=== PATIENT | female | born 1950 | race African-American/Black ===

== ENCOUNTER 2018-08-17 01:04 | Inpatient (IN) ==
--- NOTE | 2018-08-17 04:43 | CT ---
EXAM DATE: 08/17/2018 4:10 AM EST AGE/SEX: 68 years / Female INDICATIONS: Fell out of bed. CLINICAL DATA: This is the patient's initial encounter. Patient reports that signs and symptoms have been present for 1 day and indicates a pain score of 0/10. MEDICAL/SURGICAL HISTORY: Dementia. Diabetes mellitus type II. Hypertension. PVD None. RADIATION DOSE: 13.14 CTDI (mGy) COMPARISON: No prior exams available for comparison. TECHNIQUE: Contiguous axial images were obtained using helical multirow detector technique. The vol umetric data was post-processed with multiplanar reconstruction in oblique axial, sagittal, and coron al planes. Using automated exposure control and adjustment of the mA and/or kV according to patient s ize, radiation dose was kept as low as reasonably achievable to obtain optimal diagnostic quality tad ges. DICOM format image data is available electronically for review and comparison. FINDINGS: Vertebrae: Normal vertebral body height. Alignment: Normal. No subluxation. Calcified carotid artery atherosclerotic plaque. C2-3: Mild central bulge. Central canal is patent as are the neural foramina.. C3-4: Moderate broad-based disc bulge with abutment of the cord. Bony uncovertebral hypertrophy with mild encroachment upon the neural foramina bilaterally.. C4-5: Moderate broad-based disc bulge with abutment of the cord. Bony uncovertebral hypertrophy with mild encroachment upon the neural foramina bilaterally. C5-6: Moderate broad-based disc bulge with abutment of the cord. Bony uncovertebral hypertrophy with mild encroachment upon the neural foramina bilaterally... C6-7: Moderate broad-based disc bulge with abutment of the cord. Bony uncovertebral hypertrophy with mild encroachment upon the neural foramina bilaterally... C7-T1: The bony spinal canal is normal in size. No evidence of disc bulge or herniation. The neura l foramina are bilaterally patent. CONCLUSION: 1. No fracture. 2. Diffuse degenerative changes. Electronically signed by: Antonio Harvey MD 08/17/2018 4:41 AM EST
--- NOTE | 2018-08-17 04:46 | CT ---
EXAM DATE: 08/17/2018 4:08 AM EST AGE/SEX: 68 years / Female INDICATIONS: Fell out of bed. Right forehead contusion. CLINICAL DATA: This is the patient's initial encounter. Patient reports that signs and symptoms have been present for 2 days and indicates a pain score of 0/10. MEDICAL/SURGICAL HISTORY: Dementia. Diabetes mellitus type II. Hypertension. PVD None. RADIATION DOSE: 32.44 CTDI (mGy) COMPARISON: No prior exams available for comparison. TECHNIQUE: CT of the head without contrast. Using automated exposure control and adjustment of the mA and/or kV according to patient size, radiation dose was kept as low as reasonably achievable to ob tain optimal diagnostic quality images. DICOM format image data is available electronically for revi ew and comparison. FINDINGS: Cerebrum: Serpiginous areas of high attenuation associated with the superficial cortex of both front al and parietal lobes particularly near the vertex. This may involve the subarachnoid space is well. Periventricular low attenuation change involving both cerebral hemispheres. The ventricles are normal for age. No evidence of midline shift, mass lesion, or acute infarction. No extraaxial fluid suni ections are seen. Posterior Fossa: The cerebellum and brainstem are intact. The 4th ventricle is midline. The cerebe llopontine angle is unremarkable. Extracranial: The visualized portion of the orbits is intact. Skull: A right supraorbital soft tissue hematoma. The calvaria is intact. No evidence of skull frac ture. CONCLUSION: 1. Right supraorbital soft tissue hematoma. 2. Areas of high attenuation which could relate to small volume subarachnoid hemorrhage and possibly superficial hemorrhagic contusions as detailed above. Consider short-term follow-up CT of the brain to document stability. 3. Chronic small vessel ischemic change. . Electronically signed by: Antonio Harvey MD 08/17/2018 4:45 AM EST
[2018-08-17 05:02] LABS: Bacteria,Urine Many /hpf; Bilirubin,Urine Negative (Negative); Clarity,Urine Cloudy (Clear); Color,Urine Yellow (Yellw/Straw); Glucose,Urine (UA) 500 or Greater mg/dL (Negative); Hyaline Casts,Urine 2 /lpf (0-3); Leukocyte Esterase,Urine Large (Negative); Mucus,Urine Few /lpf (Occasional); Nitrite,Urine Positive (Negative); Specific Gravity,Urine 1.007 (1.002-1.035)
[2018-08-17 05:05] LABS: Baso # (Auto) 0.1 th/mm3 (0.0-0.2); Eos # (Auto) 0.4 th/mm3 (0.0-0.4); Hematocrit 34.3 % (35.0-46.0); Hemoglobin 11.5 gm/dL (11.6-15.3); Lymph # (Auto) 1.5 th/mm3 (1.0-4.8); Lymph % (Auto) 25.2 % (9.0-44.0); Mean Corpuscular HGB Conc 33.5 % (32.0-36.0); Mean Corpuscular Hemoglobin 30.7 pg (27.0-34.0); Mean Corpuscular Volume 91.9 fL (80.0-100.0); Mean Platelet Volume 9.6 fL (7.0-11.0); Mono # (Auto) 0.6 th/mm3 (0.0-0.9); Mono % (Auto) 10.7 % (0.0-8.0); Neut # (Auto) 3.4 th/mm3 (1.8-7.7); Neut % (Auto) 57.1 % (16.0-70.0); Platelet Count 242 th/mm3 (150-450); Red Blood Count 3.73 mil/mm3 (4.00-5.30); Red Cell Distribution Width 14.7 % (11.6-17.2); White Blood Count 5.9 th/mm3 (4.0-11.0)
--- NOTE | 2018-08-17 05:05 | ED ---
HPI General Chief complaint: Head Injury Stated complaint: Medical Time Seen by Provider: 08/17/18 04:22 Source: patient, EMS and old records reviewed Mode of arrival: EMS Limitations: altered mental status History of Present Illness HPI Narrative: 68-year-old black female presents to the emergency department from [facility]. Patient allegedly had fallen out of bed striking her right side of the face. She developed a hematoma. She was sent to the ER for evaluation. She was found on the floor. The patient is a poor historian. She suffers from diabetes, hyperlipidemia, seizure disorder, hypertension, CVA, peripheral vascular disease and dementia. Patient currently takes Plavix. Patient is unable to render a meaningful history. History through review of the medical record and discussion with the nurses. Related Data Home Medications Medication Instructions Recorded Confirmed Novolin N NPH U-100 Insulin 08/17/18 amlodipine 10 mg PO DAILY 08/17/18 08/17/18 aspirin 325 mg PO DAILY 08/17/18 08/17/18 atorvastatin 20 mg PO DAILY 08/17/18 08/17/18 carvedilol 25 mg PO BID 08/17/18 08/17/18 clopidogrel [Plavix] 75 mg PO DAILY 08/17/18 08/17/18 duloxetine 60 mg PO DAILY 08/17/18 08/17/18 levetiracetam 1,000 mg PO BID 08/17/18 08/17/18 Allergies Allergy/AdvReac Type Severity Reaction Status Date / Time insulin glargine Allergy Abdominal Verified 08/17/18 01:19 [From Lantus U-100 Insulin] Pain Penicillins Allergy Anaphylaxis Verified 08/17/18 01:19 Review of Systems ROS Unobtainable ROS Unobtainable: unobtainable due to mental condition PMFSH Medical History Medical History Dementia (Acute) Epilepsy (Acute) HTN (hypertension) (Acute) History of infection due to ESBL Escherichia coli (Acute ~08/17/18) Hyperlipidemia (Acute) PVD (peripheral vascular disease) (Acute) Surgical history unknown (Acute) Type 2 diabetes mellitus (Acute) Social History Social History Substance History: No History of Abuse Second Hand Smoke Exposure: No Smoking Status: Former smoker How Often Do You Have a Drink Containing Alcohol: Never Recent Travel in [facility] [[email or web address] within the Last 8 Weeks: No Recent Out of Country Travel within the Last 8 Weeks: No Immunization History Tetanus Immunization: >5 Years Exam Narrative Exam Narrative: GENERAL: Well-developed, well-nourished in no apparent distress. Nontoxic appearing. Patient is pleasantly confused. Patient has an indwelling Schilling. Urine is cloudy HEAD: Patient has a large right supraorbital hematoma EYES: Pupils equal round and reactive. Extraocular motions intact. No scleral icterus. No injection or drainage. ENT: Nose clear. Throat without erythema, tonsillar hypertrophy or exudate. Uvula midline. Airway patent. NECK: Trachea midline. Supple, nontender, moves head freely. No central bony tenderness or spasm. CARDIOVASCULAR: Regular rate and rhythm without murmurs, gallops, or rubs. RESPIRATORY: Clear to auscultation. Breath sounds equal bilaterally. No wheezes , rales, or rhonchi. GASTROINTESTINAL: Abdomen soft, non-tender, nondistended. No hepato-splenomegaly , or palpable masses. No guarding. EXTREMITIES: No clubbing, cyanosis, +1 pedal edema in the right lower leg. She has a wound on the right knee. This is dressed. She has a left [id number] amputation. Upper extremities are unremarkable. BACK: Nontender without deformity. No flank tenderness. NEUROLOGICAL: Awake, alert and oriented x 1 .Cranial nerves grossly intact. Unable to truly assess motor with patient's history of CVA, PVD, and dementia. She has a left [id number] amputation. She seems to move her arms in a coordinated fashion. Course Initial Documented Vital Signs Temperature 98.5 F 08/17/18 01:14 Pulse Rate 72 08/17/18 01:14 Respiratory Rate 16 08/17/18 01:14 Blood Pressure 153/73 H 08/17/18 01:14 Pulse Oximetry 99 08/17/18 01:14 Last Documented Vital Signs Temperature 98.3 F 08/21/18 20:00 Pulse Rate 71 08/21/18 20:00 Respiratory Rate 18 08/21/18 20:00 Blood Pressure 122/65 08/21/18 20:00 Pulse Oximetry 98 08/21/18 20:00 Medical Decision Making LULA Attestation LULA supervised visit: Yes Attestation: 68-year-old female was sent to the ER from the [facility] after she was found on the floor for an unwitnessed fall. Patient has history of dementia and is a DNR. She was seen by my PA and I am supervising him. Head CT showed a small possible bleed as per the radiologist. PA discussed the case with the neurosurgeon who recommended admission. Patient will be admitted to her primary care service. Patient is quite confused which could be from her dementia although I do not know her baseline status. She has a right periorbital hematoma/ecchymosis. Patient is hemodynamically stable otherwise. MDM Narrative Medical decision making narrative: This is a 68-year-old black female who had [facility]. She has a long-standing history of chronic medical problems as well as dementia. She is on Plavix for her peripheral vascular disease. Patient will undergo CT scan of the head, neck, routine laboratory testing. CT scan of the cervical spine is negative for trauma. CT scan of the brain reveals a soft tissue swelling to the right supraorbital area along with a possible small subarachnoid and contusion to the vertex of the head. Close interval follow-up CT is recommended. I have discussed the case with Dr. Herrera who is aware of the patient. He agrees with admitting to medicine service having repeat CT scanning. Hold Plavix. I have spoken with Ila Cooper nurse practitioner who has agreed to admit the patient to [facility] telemetry observation with repeat CT scanning in the next 6- 12 hours. Patient's urine is grossly contaminated and has positive nitrates. She is given Rocephin 1 g IV. Medical Screen Exam Complete: Yes Emergency Medical Condition: Yes Differential Diagnosis Differential Diagnosis: MDM: High Differential diagnoses: Fracture, sprain, strain, dislocation, contusion, neurovascular injury Lab Data Result diagrams: 08/19/18 04:38 08/18/18 08:11 Lab Results 08/17/18 08/17/18 08/17/18 Range/Units 03:40 03:40 03:40 WBC 5.9 (4.0-11.0) th/mm3 RBC 3.73 L (4.00-5.30) mil/mm3 Hgb 11.5 L (11.6-15.3) gm/dL Hct 34.3 L (35.0-46.0) % MCV 91.9 (80.0-100.0) fL MCH 30.7 (27.0-34.0) pg MCHC 33.5 (32.0-36.0) % RDW 14.7 (11.6-17.2) % Plt Count 242 (150-450) th/mm3 MPV 9.6 (7.0-11.0) fL Neut % (Auto) 57.1 (16.0-70.0) % Lymph % (Auto) 25.2 (9.0-44.0) % [place] % (Auto) 10.7 H (0.0-8.0) % Eos % (Auto) 6.0 H (0.0-4.0) % Baso % (Auto) 1.0 (0.0-2.0) % Neut # (Auto) 3.4 (1.8-7.7) th/mm3 Lymph # (Auto) 1.5 (1.0-4.8) th/mm3 [place] # (Auto) 0.6 (0.0-0.9) th/mm3 Eos # (Auto) 0.4 (0.0-0.4) th/mm3 Baso # (Auto) 0.1 (0.0-0.2) th/mm3 WBC Differential . Differential Comment Auto diff final PT (9.8-11.6) sec INR Ratio APTT (23.4-31.7) sec Sodium 135 L (136-145) meq/L Potassium 5.6 H (3.5-5.1) meq/L Chloride 102 (98-107) meq/L Carbon Dioxide 26.8 (21.0-32.0) meq/L Anion Gap 6 (5-15) meq/L BUN 21 H (7-18) mg/dL Creatinine 1.16 H (0.50-1.00) mg/dL Estimated GFR 56 L (>89) mL/min POC Glucose (68-110) mg/dl Random Glucose 297 H (74-106) mg/dL Calcium 8.9 (8.5-10.1) mg/dL Troponin I Less than 0.02 L (0.02-0.05) ng/mL Urine Color Yellow (Yellw/Straw) Urine Clarity Cloudy H (Clear) Urine pH 6.0 (5.0-8.5) Ur Specific [place] 1.007 (1.002-1.035) Urine Protein 30 H (Neg-Trace) mg/dL Urine Glucose (UA) 500 or greater (Negative) mg/dL Urine Ketones Negative (Negative) mg/dL Urine Occult Blood Negative (Negative) Urine Nitrate Positive H (Negative) Urine Bilirubin Negative (Negative) Urine Urobilinogen Less than 2 (Less than 2) mg/dL Ur Leukocyte Esterase Large H (Negative) Urine RBC 1 (0-3) /hpf Urine WBC (0-5) /hpf Urine WBC Clumps Many H (None) Urine Bacteria Many H (None) /hpf Hyaline Casts 2 (0-3) /lpf Urine Mucus Few H (Occasional) /lpf Urine Yeast Rare H (None) /hpf Micro UA Comment Cath-culture ind Ur Microscopic Review Not Reportable Urine Culture Comments Cath-cult indicated 08/17/18 08/17/18 08/17/18 Range/Units 05:40 08:18 12:19 WBC (4.0-11.0) th/mm3 RBC (4.00-5.30) mil/mm3 Hgb (11.6-15.3) gm/dL Hct (35.0-46.0) % MCV (80.0-100.0) fL MCH (27.0-34.0) pg MCHC (32.0-36.0) % RDW (11.6-17.2) % Plt Count (150-450) th/mm3 MPV (7.0-11.0) fL Neut % (Auto) (16.0-70.0) % Lymph % (Auto) (9.0-44.0) % [place] % (Auto) (0.0-8.0) % Eos % (Auto) (0.0-4.0) % Baso % (Auto) (0.0-2.0) % Neut # (Auto) (1.8-7.7) th/mm3 Lymph # (Auto) (1.0-4.8) th/mm3 [place] # (Auto) (0.0-0.9) th/mm3 Eos # (Auto) (0.0-0.4) th/mm3 Baso # (Auto) (0.0-0.2) th/mm3 WBC Differential Differential Comment PT 10.4 (9.8-11.6) sec INR 1.0 Ratio APTT 20.8 L (23.4-31.7) sec Sodium (136-145) meq/L Potassium (3.5-5.1) meq/L Chloride (98-107) meq/L Carbon Dioxide (21.0-32.0) meq/L Anion Gap (5-15) meq/L BUN (7-18) mg/dL Creatinine (0.50-1.00) mg/dL Estimated GFR (>89) mL/min POC Glucose 261 H 380 H (68-110) mg/dl Random Glucose (74-106) mg/dL Calcium (8.5-10.1) mg/dL Troponin I (0.02-0.05) ng/mL Urine Color (Yellw/Straw) Urine Clarity (Clear) Urine pH (5.0-8.5) Ur Specific [place] (1.002-1.035) Urine Protein (Neg-Trace) mg/dL Urine Glucose (UA) (Negative) mg/dL Urine Ketones (Negative) mg/dL Urine Occult Blood (Negative) Urine Nitrate (Negative) Urine Bilirubin (Negative) Urine Urobilinogen (Less than 2) mg/dL Ur Leukocyte Esterase (Negative) Urine RBC (0-3) /hpf Urine WBC (0-5) /hpf Urine WBC Clumps (None) Urine Bacteria (None) /hpf Hyaline Casts (0-3) /lpf Urine Mucus (Occasional) /lpf Urine Yeast (None) /hpf Micro UA Comment Ur Microscopic Review Urine Culture Comments 08/17/18 08/17/18 08/18/18 Range/Units 16:34 22:48 08:11 WBC (4.0-11.0) th/mm3 RBC (4.00-5.30) mil/mm3 Hgb (11.6-15.3) gm/dL Hct (35.0-46.0) % MCV (80.0-100.0) fL MCH (27.0-34.0) pg MCHC (32.0-36.0) % RDW (11.6-17.2) % Plt Count (150-450) th/mm3 MPV (7.0-11.0) fL Neut % (Auto) (16.0-70.0) % Lymph % (Auto) (9.0-44.0) % [place] % (Auto) (0.0-8.0) % Eos % (Auto) (0.0-4.0) % Baso % (Auto) (0.0-2.0) % Neut # (Auto) (1.8-7.7) th/mm3 Lymph # (Auto) (1.0-4.8) th/mm3 [place] # (Auto) (0.0-0.9) th/mm3 Eos # (Auto) (0.0-0.4) th/mm3 Baso # (Auto) (0.0-0.2) th/mm3 WBC Differential Differential Comment PT (9.8-11.6) sec INR Ratio APTT (23.4-31.7) sec Sodium 134 L (136-145) meq/L Potassium 4.7 D (3.5-5.1) meq/L Chloride 101 (98-107) meq/L Carbon Dioxide 26.6 (21.0-32.0) meq/L Anion Gap 6 (5-15) meq/L BUN 24 H (7-18) mg/dL Creatinine 1.21 H (0.50-1.00) mg/dL Estimated GFR 53 L (>89) mL/min POC Glucose 172 H 324 H (68-110) mg/dl Random Glucose 280 H (74-106) mg/dL Calcium 8.9 (8.5-10.1) mg/dL Troponin I (0.02-0.05) ng/mL Urine Color (Yellw/Straw) Urine Clarity (Clear) Urine pH (5.0-8.5) Ur Specific [place] (1.002-1.035) Urine Protein (Neg-Trace) mg/dL Urine Glucose (UA) (Negative) mg/dL Urine Ketones (Negative) mg/dL Urine Occult Blood (Negative) Urine Nitrate (Negative) Urine Bilirubin (Negative) Urine Urobilinogen (Less than 2) mg/dL Ur Leukocyte Esterase (Negative) Urine RBC (0-3) /hpf Urine WBC (0-5) /hpf Urine WBC Clumps (None) Urine Bacteria (None) /hpf Hyaline Casts (0-3) /lpf Urine Mucus (Occasional) /lpf Urine Yeast (None) /hpf Micro UA Comment Ur Microscopic Review Urine Culture Comments 08/18/18 08/18/18 08/18/18 Range/Units 09:06 12:25 18:09 WBC (4.0-11.0) th/mm3 RBC (4.00-5.30) mil/mm3 Hgb (11.6-15.3) gm/dL Hct (35.0-46.0) % MCV (80.0-100.0) fL MCH (27.0-34.0) pg MCHC (32.0-36.0) % RDW (11.6-17.2) % Plt Count (150-450) th/mm3 MPV (7.0-11.0) fL Neut % (Auto) (16.0-70.0) % Lymph % (Auto) (9.0-44.0) % [place] % (Auto) (0.0-8.0) % Eos % (Auto) (0.0-4.0) % Baso % (Auto) (0.0-2.0) % Neut # (Auto) (1.8-7.7) th/mm3 Lymph # (Auto) (1.0-4.8) th/mm3 [place] # (Auto) (0.0-0.9) th/mm3 Eos # (Auto) (0.0-0.4) th/mm3 Baso # (Auto) (0.0-0.2) th/mm3 WBC Differential Differential Comment PT (9.8-11.6) sec INR Ratio APTT (23.4-31.7) sec Sodium (136-145) meq/L Potassium (3.5-5.1) meq/L Chloride (98-107) meq/L Carbon Dioxide (21.0-32.0) meq/L Anion Gap (5-15) meq/L BUN (7-18) mg/dL Creatinine (0.50-1.00) mg/dL Estimated GFR (>89) mL/min POC Glucose 289 H 366 H 70 (68-110) mg/dl Random Glucose (74-106) mg/dL Calcium (8.5-10.1) mg/dL Troponin I (0.02-0.05) ng/mL Urine Color (Yellw/Straw) Urine Clarity (Clear) Urine pH (5.0-8.5) Ur Specific [place] (1.002-1.035) Urine Protein (Neg-Trace) mg/dL Urine Glucose (UA) (Negative) mg/dL Urine Ketones (Negative) mg/dL Urine Occult Blood (Negative) Urine Nitrate (Negative) Urine Bilirubin (Negative) Urine Urobilinogen (Less than 2) mg/dL Ur Leukocyte Esterase (Negative) Urine RBC (0-3) /hpf Urine WBC (0-5) /hpf Urine WBC Clumps (None) Urine Bacteria (None) /hpf Hyaline Casts (0-3) /lpf Urine Mucus (Occasional) /lpf Urine Yeast (None) /hpf Micro UA Comment Ur Microscopic Review Urine Culture Comments 08/18/18 08/18/18 08/19/18 Range/Units 18:49 20:27 04:38 WBC 5.4 (4.0-11.0) th/mm3 RBC 3.81 L (4.00-5.30) mil/mm3 Hgb 11.7 (11.6-15.3) gm/dL Hct 34.8 L (35.0-46.0) % MCV 91.5 (80.0-100.0) fL MCH 30.7 (27.0-34.0) pg MCHC 33.6 (32.0-36.0) % RDW 14.6 (11.6-17.2) % Plt Count 211 (150-450) th/mm3 MPV 9.6 (7.0-11.0) fL Neut % (Auto) (16.0-70.0) % Lymph % (Auto) (9.0-44.0) % [place] % (Auto) (0.0-8.0) % Eos % (Auto) (0.0-4.0) % Baso % (Auto) (0.0-2.0) % Neut # (Auto) (1.8-7.7) th/mm3 Lymph # (Auto) (1.0-4.8) th/mm3 [place] # (Auto) (0.0-0.9) th/mm3 Eos # (Auto) (0.0-0.4) th/mm3 Baso # (Auto) (0.0-0.2) th/mm3 WBC Differential Differential Comment PT (9.8-11.6) sec INR Ratio APTT (23.4-31.7) sec Sodium (136-145) meq/L Potassium (3.5-5.1) meq/L Chloride (98-107) meq/L Carbon Dioxide (21.0-32.0) meq/L Anion Gap (5-15) meq/L BUN (7-18) mg/dL Creatinine (0.50-1.00) mg/dL Estimated GFR (>89) mL/min POC Glucose 80 217 H (68-110) mg/dl Random Glucose (74-106) mg/dL Calcium (8.5-10.1) mg/dL Troponin I (0.02-0.05) ng/mL Urine Color (Yellw/Straw) Urine Clarity (Clear) Urine pH (5.0-8.5) Ur Specific [place] (1.002-1.035) Urine Protein (Neg-Trace) mg/dL Urine Glucose (UA) (Negative) mg/dL Urine Ketones (Negative) mg/dL Urine Occult Blood (Negative) Urine Nitrate (Negative) Urine Bilirubin (Negative) Urine Urobilinogen (Less than 2) mg/dL Ur Leukocyte Esterase (Negative) Urine RBC (0-3) /hpf Urine WBC (0-5) /hpf Urine WBC Clumps (None) Urine Bacteria (None) /hpf Hyaline Casts (0-3) /lpf Urine Mucus (Occasional) /lpf Urine Yeast (None) /hpf Micro UA Comment Ur Microscopic Review Urine Culture Comments 08/19/18 08/19/18 08/19/18 Range/Units 07:47 07:49 11:31 WBC (4.0-11.0) th/mm3 RBC (4.00-5.30) mil/mm3 Hgb (11.6-15.3) gm/dL Hct (35.0-46.0) % MCV (80.0-100.0) fL MCH (27.0-34.0) pg MCHC (32.0-36.0) % RDW (11.6-17.2) % Plt Count (150-450) th/mm3 MPV (7.0-11.0) fL Neut % (Auto) (16.0-70.0) % Lymph % (Auto) (9.0-44.0) % [place] % (Auto) (0.0-8.0) % Eos % (Auto) (0.0-4.0) % Baso % (Auto) (0.0-2.0) % Neut # (Auto) (1.8-7.7) th/mm3 Lymph # (Auto) (1.0-4.8) th/mm3 [place] # (Auto) (0.0-0.9) th/mm3 Eos # (Auto) (0.0-0.4) th/mm3 Baso # (Auto) (0.0-0.2) th/mm3 WBC Differential Differential Comment PT (9.8-11.6) sec INR Ratio APTT (23.4-31.7) sec Sodium (136-145) meq/L Potassium (3.5-5.1) meq/L Chloride (98-107) meq/L Carbon Dioxide (21.0-32.0) meq/L Anion Gap (5-15) meq/L BUN (7-18) mg/dL Creatinine (0.50-1.00) mg/dL Estimated GFR (>89) mL/min POC Glucose 427 H 420 H 320 H (68-110) mg/dl Random Glucose (74-106) mg/dL Calcium (8.5-10.1) mg/dL Troponin I (0.02-0.05) ng/mL Urine Color (Yellw/Straw) Urine Clarity (Clear) Urine pH (5.0-8.5) Ur Specific [place] (1.002-1.035) Urine Protein (Neg-Trace) mg/dL Urine Glucose (UA) (Negative) mg/dL Urine Ketones (Negative) mg/dL Urine Occult Blood (Negative) Urine Nitrate (Negative) Urine Bilirubin (Negative) Urine Urobilinogen (Less than 2) mg/dL Ur Leukocyte Esterase (Negative) Urine RBC (0-3) /hpf Urine WBC (0-5) /hpf Urine WBC Clumps (None) Urine Bacteria (None) /hpf Hyaline Casts (0-3) /lpf Urine Mucus (Occasional) /lpf Urine Yeast (None) /hpf Micro UA Comment Ur Microscopic Review Urine Culture Comments 08/19/18 08/19/18 08/20/18 Range/Units 16:34 20:29 07:22 WBC (4.0-11.0) th/mm3 RBC (4.00-5.30) mil/mm3 Hgb (11.6-15.3) gm/dL Hct (35.0-46.0) % MCV (80.0-100.0) fL MCH (27.0-34.0) pg MCHC (32.0-36.0) % RDW (11.6-17.2) % Plt Count (150-450) th/mm3 MPV (7.0-11.0) fL Neut % (Auto) (16.0-70.0) % Lymph % (Auto) (9.0-44.0) % [place] % (Auto) (0.0-8.0) % Eos % (Auto) (0.0-4.0) % Baso % (Auto) (0.0-2.0) % Neut # (Auto) (1.8-7.7) th/mm3 Lymph # (Auto) (1.0-4.8) th/mm3 [place] # (Auto) (0.0-0.9) th/mm3 Eos # (Auto) (0.0-0.4) th/mm3 Baso # (Auto) (0.0-0.2) th/mm3 WBC Differential Differential Comment PT (9.8-11.6) sec INR Ratio APTT (23.4-31.7) sec Sodium (136-145) meq/L Potassium (3.5-5.1) meq/L Chloride (98-107) meq/L Carbon Dioxide (21.0-32.0) meq/L Anion Gap (5-15) meq/L BUN (7-18) mg/dL Creatinine (0.50-1.00) mg/dL Estimated GFR (>89) mL/min POC Glucose 246 H 278 H 407 H (68-110) mg/dl Random Glucose (74-106) mg/dL Calcium (8.5-10.1) mg/dL Troponin I (0.02-0.05) ng/mL Urine Color (Yellw/Straw) Urine Clarity (Clear) Urine pH (5.0-8.5) Ur Specific [place] (1.002-1.035) Urine Protein (Neg-Trace) mg/dL Urine Glucose (UA) (Negative) mg/dL Urine Ketones (Negative) mg/dL Urine Occult Blood (Negative) Urine Nitrate (Negative) Urine Bilirubin (Negative) Urine Urobilinogen (Less than 2) mg/dL Ur Leukocyte Esterase (Negative) Urine RBC (0-3) /hpf Urine WBC (0-5) /hpf Urine WBC Clumps (None) Urine Bacteria (None) /hpf Hyaline Casts (0-3) /lpf Urine Mucus (Occasional) /lpf Urine Yeast (None) /hpf Micro UA Comment Ur Microscopic Review Urine Culture Comments 08/20/18 08/20/18 08/20/18 Range/Units 11:28 17:22 19:52 WBC (4.0-11.0) th/mm3 RBC (4.00-5.30) mil/mm3 Hgb (11.6-15.3) gm/dL Hct (35.0-46.0) % MCV (80.0-100.0) fL MCH (27.0-34.0) pg MCHC (32.0-36.0) % RDW (11.6-17.2) % Plt Count (150-450) th/mm3 MPV (7.0-11.0) fL Neut % (Auto) (16.0-70.0) % Lymph % (Auto) (9.0-44.0) % [place] % (Auto) (0.0-8.0) % Eos % (Auto) (0.0-4.0) % Baso % (Auto) (0.0-2.0) % Neut # (Auto) (1.8-7.7) th/mm3 Lymph # (Auto) (1.0-4.8) th/mm3 [place] # (Auto) (0.0-0.9) th/mm3 Eos # (Auto) (0.0-0.4) th/mm3 Baso # (Auto) (0.0-0.2) th/mm3 WBC Differential Differential Comment PT (9.8-11.6) sec INR Ratio APTT (23.4-31.7) sec Sodium (136-145) meq/L Potassium (3.5-5.1) meq/L Chloride (98-107) meq/L Carbon Dioxide (21.0-32.0) meq/L Anion Gap (5-15) meq/L BUN (7-18) mg/dL Creatinine (0.50-1.00) mg/dL Estimated GFR (>89) mL/min POC Glucose 306 H 214 H 169 H (68-110) mg/dl Random Glucose (74-106) mg/dL Calcium (8.5-10.1) mg/dL Troponin I (0.02-0.05) ng/mL Urine Color (Yellw/Straw) Urine Clarity (Clear) Urine pH (5.0-8.5) Ur Specific [place] (1.002-1.035) Urine Protein (Neg-Trace) mg/dL Urine Glucose (UA) (Negative) mg/dL Urine Ketones (Negative) mg/dL Urine Occult Blood (Negative) Urine Nitrate (Negative) Urine Bilirubin (Negative) Urine Urobilinogen (Less than 2) mg/dL Ur Leukocyte Esterase (Negative) Urine RBC (0-3) /hpf Urine WBC (0-5) /hpf Urine WBC Clumps (None) Urine Bacteria (None) /hpf Hyaline Casts (0-3) /lpf Urine Mucus (Occasional) /lpf Urine Yeast (None) /hpf Micro UA Comment Ur Microscopic Review Urine Culture Comments 08/21/18 08/21/18 08/21/18 Range/Units 07:54 13:01 17:47 WBC (4.0-11.0) th/mm3 RBC (4.00-5.30) mil/mm3 Hgb (11.6-15.3) gm/dL Hct (35.0-46.0) % MCV (80.0-100.0) fL MCH (27.0-34.0) pg MCHC (32.0-36.0) % RDW (11.6-17.2) % Plt Count (150-450) th/mm3 MPV (7.0-11.0) fL Neut % (Auto) (16.0-70.0) % Lymph % (Auto) (9.0-44.0) % [place] % (Auto) (0.0-8.0) % Eos % (Auto) (0.0-4.0) % Baso % (Auto) (0.0-2.0) % Neut # (Auto) (1.8-7.7) th/mm3 Lymph # (Auto) (1.0-4.8) th/mm3 [place] # (Auto) (0.0-0.9) th/mm3 Eos # (Auto) (0.0-0.4) th/mm3 Baso # (Auto) (0.0-0.2) th/mm3 WBC Differential Differential Comment PT (9.8-11.6) sec INR Ratio APTT (23.4-31.7) sec Sodium (136-145) meq/L Potassium (3.5-5.1) meq/L Chloride (98-107) meq/L Carbon Dioxide (21.0-32.0) meq/L Anion Gap (5-15) meq/L BUN (7-18) mg/dL Creatinine (0.50-1.00) mg/dL Estimated GFR (>89) mL/min POC Glucose 380 H 360 H 233 H (68-110) mg/dl Random Glucose (74-106) mg/dL Calcium (8.5-10.1) mg/dL Troponin I (0.02-0.05) ng/mL Urine Color (Yellw/Straw) Urine Clarity (Clear) Urine pH (5.0-8.5) Ur Specific [place] (1.002-1.035) Urine Protein (Neg-Trace) mg/dL Urine Glucose (UA) (Negative) mg/dL Urine Ketones (Negative) mg/dL Urine Occult Blood (Negative) Urine Nitrate (Negative) Urine Bilirubin (Negative) Urine Urobilinogen (Less than 2) mg/dL Ur Leukocyte Esterase (Negative) Urine RBC (0-3) /hpf Urine WBC (0-5) /hpf Urine WBC Clumps (None) Urine Bacteria (None) /hpf Hyaline Casts (0-3) /lpf Urine Mucus (Occasional) /lpf Urine Yeast (None) /hpf Micro UA Comment Ur Microscopic Review Urine Culture Comments 08/21/18 Range/Units 20:36 WBC (4.0-11.0) th/mm3 RBC (4.00-5.30) mil/mm3 Hgb (11.6-15.3) gm/dL Hct (35.0-46.0) % MCV (80.0-100.0) fL MCH (27.0-34.0) pg MCHC (32.0-36.0) % RDW (11.6-17.2) % Plt Count (150-450) th/mm3 MPV (7.0-11.0) fL Neut % (Auto) (16.0-70.0) % Lymph % (Auto) (9.0-44.0) % [place] % (Auto) (0.0-8.0) % Eos % (Auto) (0.0-4.0) % Baso % (Auto) (0.0-2.0) % Neut # (Auto) (1.8-7.7) th/mm3 Lymph # (Auto) (1.0-4.8) th/mm3 [place] # (Auto) (0.0-0.9) th/mm3 Eos # (Auto) (0.0-0.4) th/mm3 Baso # (Auto) (0.0-0.2) th/mm3 WBC Differential Differential Comment PT (9.8-11.6) sec INR Ratio APTT (23.4-31.7) sec Sodium (136-145) meq/L Potassium (3.5-5.1) meq/L Chloride (98-107) meq/L Carbon Dioxide (21.0-32.0) meq/L Anion Gap (5-15) meq/L BUN (7-18) mg/dL Creatinine (0.50-1.00) mg/dL Estimated GFR (>89) mL/min POC Glucose 176 H (68-110) mg/dl Random Glucose (74-106) mg/dL Calcium (8.5-10.1) mg/dL Troponin I (0.02-0.05) ng/mL Urine Color (Yellw/Straw) Urine Clarity (Clear) Urine pH (5.0-8.5) Ur Specific [place] (1.002-1.035) Urine Protein (Neg-Trace) mg/dL Urine Glucose (UA) (Negative) mg/dL Urine Ketones (Negative) mg/dL Urine Occult Blood (Negative) Urine Nitrate (Negative) Urine Bilirubin (Negative) Urine Urobilinogen (Less than 2) mg/dL Ur Leukocyte Esterase (Negative) Urine RBC (0-3) /hpf Urine WBC (0-5) /hpf Urine WBC Clumps (None) Urine Bacteria (None) /hpf Hyaline Casts (0-3) /lpf Urine Mucus (Occasional) /lpf Urine Yeast (None) /hpf Micro UA Comment Ur Microscopic Review Urine Culture Comments Imaging Data Radiologist's impression: Cervical Spine CT 08/17/18 03:26 CONCLUSION: 1. No fracture. 2. Diffuse degenerative changes. Head CT 08/17/18 03:26 CONCLUSION: 1. Right supraorbital soft tissue hematoma. 2. Areas of high attenuation which could relate to small volume subarachnoid hemorrhage and possibly superficial hemorrhagic contusions as detailed above. Consider short-term follow-up CT of the brain to document stability. 3. Chronic small vessel ischemic change. . Head CT 08/17/18 16:00 CONCLUSION: 1. Minimal bilateral subarachnoid hemorrhage. 2. No midline shift or mass effect. . Abdomen X-Ray 08/18/18 00:00 CONCLUSION: Negative KUB. No contraindication to an MRI examination is seen. Chest X-Ray 08/18/18 00:00 CONCLUSION: No acute cardiac bony process. No contraindication to an MRI examination is seen. Head MRI 08/18/18 07:09 CONCLUSION: 1. No acute intracranial abnormalities seen. 2. Periventricular demyelination. This is nonspecific. It could be from small vessel ischemic change. 3. Right periorbital and facial soft tissue swelling and hematoma. Head MRA 08/18/18 07:09 CONCLUSION: Negative MRA of the brain. ECG Data Attestation: I personally reviewed and interpreted this ECG as follows: Interpretation: Twelve-lead EKG was reviewed by me. Normal sinus rhythm, normal axis, nonspecific ST-T wave changes. Heart rate of 75 bpm. Discharge Plan Discharge Disposition Patient Disposition: 01 Discharge Home Discharge Condition Condition: Stable Discharge Order Discharge Orders: Discharge Order (Routine); Ordered 08/19/18 Ordered By: Ila Baig ED Use Only Admit Order (Routine); Ordered 08/17/18 Ordered By: Darshan Weston Discharge Details Discharge Comment: UTI w/ 2 isolates P. Mirabili and ESBL Cont rocephin and macrobid CBC, BMP in am. encourage [facility] ED Provider: Sesar Gresham ED Midlevel Provider: Darshan Weston Primary Care Provider: Royer Cooper Attending Provider: Royer Cooper Other Providers: Harley Leung ; [facility],Agency ; [facility],Agency ; [facility],Agency ; [facility],Agency ; [facility], ; [facility],Agency ; [facility],Agency Discharge Interventions Interventions: ED Discharge Assessment Last Done: 08/17/18 08:48 Status ED Status: Left Department Discharge Information Discharge Date/Time: 08/17/18 08:50
[2018-08-17 05:23] LABS: Anion Gap 6 meq/L (5-15); Blood Urea Nitrogen 21 mg/dL (7-18); Calcium 8.9 mg/dL (8.5-10.1); Carbon Dioxide 26.8 meq/L (21.0-32.0); Chloride 102 meq/L (98-107); Glomerular Filtration Rate 56 mL/min (>89); Glucose,Random 297 mg/dL (74-106); Potassium 5.6 meq/L (3.5-5.1); Sodium 135 meq/L (136-145)
[2018-08-17 06:24] LABS: Prothrombin Time 10.4 sec (9.8-11.6)
[2018-08-17 06:26] LABS: Activated Partial Thrombo Time 20.8 sec (23.4-31.7)
[2018-08-17] MEDS ORDERED: Dextrose 50% in Water 50 ML Vial IV.PUSH PRN ×2 (07:32→15:50)
[2018-08-17] MEDS: Carvedilol 12.5 MG Tablet PO SCH ×2 (09:55→22:32)
[2018-08-17] MEDS: amLODIPine 10 MG Tablet PO SCH (09:55)
[2018-08-17] MEDS: levETIRAcetam 500 MG Tablet PO SCH ×2 (09:55→22:32)
[2018-08-17] MEDS: Duloxetine 60 MG DR Capsule PO SCH (09:55)
--- NOTE | 2018-08-17 12:55 | P.HPFP ---
History of Present Illness Primary Care Physician: Royer Cooper DO History of Present Illness: 68-year-old black female presents to the emergency department from [facility]. Patient allegedly had fallen out of bed striking her right face. She developed a hematoma. She is on plavix and ASA for PVD. She suffers from diabetes, hyperlipidemia, seizure disorder, hypertension, CVA, peripheral vascular disease and dementia. - Diagnosis (1) Subarachnoid bleed (2) UTI (urinary tract infection) (3) Seizure disorder (4) PVD (peripheral vascular disease) (5) HTN (hypertension) (6) Dementia (7) Diabetes Inpatient Certification: I certify that the inpatient services were ordered in accordance with Medicare regulations governing the order. 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 - Medical History Medical History: Medical History (Last Reviewed 08/17/18 @ 05:01 by ARCHIE Henning) Dementia Epilepsy HTN (hypertension) Hyperlipidemia PVD (peripheral vascular disease) Surgical history unknown Type 2 diabetes mellitus - Tobacco History Smoking Status: Unknown if ever smoked - Alcohol History How Often Do You Have a Drink Containing Alcohol: Never - Travel History Recent Travel in the [place] Within the Last 8 Weeks: No Recent Travel Out of the Country Within the Last 8 Weeks: No - Immunization History Tetanus Immunization: >5 Years Medications and Allergies Active Medications: Active Medications Amlodipine Besylate (Norvasc) 10 mg PO DAILY ON LICENSE OF [facility] Last Admin: 08/17/18 09:55 Dose: 10 mg Carvedilol (Coreg) 25 mg PO BID NOLBERTO Last Admin: 08/17/18 09:55 Dose: 25 mg Dextrose (D50w Vial) 50 ml IV.PUSH UNSCH PRN PRN Reason: PER HYPOGLYCEMIA PROTOCOL Duloxetine HCl (Cymbalta) 60 mg PO DAILY ON LICENSE OF [facility] Last Admin: 08/17/18 09:55 Dose: 60 mg Glucagon (Glucagon Inj) 1 mg OTHER PRN PRN PRN Reason: for Hypoglycemia Protocol Ceftriaxone Sodium 1,000 mg/ (Sodium Chloride) 100 mls @ 200 mls/hr IV.SIG Q12H NOLBERTO Levetiracetam (Keppra) 1,000 mg PO BID ON LICENSE OF [facility] Last Admin: 08/17/18 09:55 Dose: 1,000 mg Allergies Allergy/AdvReac Type Severity Reaction Status Date / Time insulin glargine Allergy Abdominal Verified 08/17/18 01:19 [From Lantus U-100 Insulin] Pain Penicillins Allergy Anaphylaxis Verified 08/17/18 01:19 Home Medications Medication Instructions Recorded Confirmed Type Novolin N NPH U-100 Insulin 08/17/18 History amlodipine 10 mg PO DAILY 08/17/18 08/17/18 History aspirin 325 mg PO DAILY 08/17/18 08/17/18 History atorvastatin 20 mg PO DAILY 08/17/18 08/17/18 History carvedilol 25 mg PO BID 08/17/18 08/17/18 History clopidogrel [Plavix] 75 mg PO DAILY 08/17/18 08/17/18 History duloxetine 60 mg PO DAILY 08/17/18 08/17/18 History levetiracetam 1,000 mg PO BID 08/17/18 08/17/18 History Exam Vital signs: Vital Signs 08/17/18 01:14 08/17/18 07:00 08/17/18 10:01 Temperature 98.5 F 98.0 F 97.3 F L Pulse Rate 72 74 78 Respiratory Rate 16 16 16 Blood Pressure 153/73 H 142/77 H 168/77 H Pulse Oximetry 99 96 Intake & Output 08/16/18 08/17/18 08/17/18 18:59 06:59 18:59 Intake Total 100 / 100 Balance 100 / 100 Weight 75 kg Intake: IV 100 / 100 Rocephin Inj 1,000 MG In NS Inj 100 / 100 100 ML @ 200 mls/hr IV.SIG ONCE ONE Rx#:[id number] - Constitutional no acute distress - Routine HEENT Exam Eye: Present: periorbital swelling (Right) - Routine Neck Exam Present: supple - Routine Respiratory Exam Present: CTA bilaterally - Routine Cardiovascular Exam Present: S1, S2 - Routine Abdominal Exam Present: soft - Routine Extremities Exam Present: amputation Comments: L BKA - Routine Skin Exam Present: dry, warm - Routine Neurological Exam Present: alert Results - Labs Result diagrams: 08/17/18 03:40 08/17/18 03:40 Abnormal lab results 08/17/18 08/17/18 08/17/18 Range/Units 03:40 03:40 03:40 RBC 3.73 L (4.00-5.30) mil/mm3 Hgb 11.5 L (11.6-15.3) gm/dL Hct 34.3 L (35.0-46.0) % [place] % (Auto) 10.7 H (0.0-8.0) % Eos % (Auto) 6.0 H (0.0-4.0) % APTT (23.4-31.7) sec Sodium 135 L (136-145) meq/L Potassium 5.6 H (3.5-5.1) meq/L BUN 21 H (7-18) mg/dL Creatinine 1.16 H (0.50-1.00) mg/dL Estimated GFR 56 L (>89) mL/min POC Glucose (68-110) mg/dl Random Glucose 297 H (74-106) mg/dL Troponin I Less than 0.02 L (0.02-0.05) ng/mL Urine Clarity Cloudy H (Clear) Urine Protein 30 H (Neg-Trace) mg/dL Urine Nitrate Positive H (Negative) Ur Leukocyte Esterase Large H (Negative) Urine WBC Clumps Many H (None) Urine Bacteria Many H (None) /hpf Urine Mucus Few H (Occasional) /lpf Urine Yeast Rare H (None) /hpf 08/17/18 08/17/18 08/17/18 Range/Units 05:40 08:18 12:19 RBC (4.00-5.30) mil/mm3 Hgb (11.6-15.3) gm/dL Hct (35.0-46.0) % [place] % (Auto) (0.0-8.0) % Eos % (Auto) (0.0-4.0) % APTT 20.8 L (23.4-31.7) sec Sodium (136-145) meq/L Potassium (3.5-5.1) meq/L BUN (7-18) mg/dL Creatinine (0.50-1.00) mg/dL Estimated GFR (>89) mL/min POC Glucose 261 H 380 H (68-110) mg/dl Random Glucose (74-106) mg/dL Troponin I (0.02-0.05) ng/mL Urine Clarity (Clear) Urine Protein (Neg-Trace) mg/dL Urine Nitrate (Negative) Ur Leukocyte Esterase (Negative) Urine WBC Clumps (None) Urine Bacteria (None) /hpf Urine Mucus (Occasional) /lpf Urine Yeast (None) /hpf Short CBC 08/17/18 Range/Units 03:40 WBC 5.9 (4.0-11.0) th/mm3 Hgb 11.5 L (11.6-15.3) gm/dL Hct 34.3 L (35.0-46.0) % Plt Count 242 (150-450) th/mm3 BMP 08/17/18 03:40 Sodium 135 L Potassium 5.6 H Chloride 102 Carbon Dioxide 26.8 BUN 21 H Creatinine 1.16 H Calcium 8.9 Cardiac Enzymes 08/17/18 Range/Units 03:40 Troponin I Less than 0.02 L (0.02-0.05) ng/mL Urine 08/17/18 Range/Units 03:40 Urine Color Yellow (Yellw/Straw) Urine Clarity Cloudy H (Clear) Urine pH 6.0 (5.0-8.5) Ur Specific [place] 1.007 (1.002-1.035) Urine Protein 30 H (Neg-Trace) mg/dL Urine Glucose (UA) 500 or greater (Negative) mg/dL - Imaging Impressions Cervical Spine CT 08/17/18 03:26 CONCLUSION: 1. No fracture. 2. Diffuse degenerative changes. Head CT 08/17/18 03:26 CONCLUSION: 1. Right supraorbital soft tissue hematoma. 2. Areas of high attenuation which could relate to small volume subarachnoid hemorrhage and possibly superficial hemorrhagic contusions as detailed above. Consider short-term follow-up CT of the brain to document stability. 3. Chronic small vessel ischemic change. . Caprini VTE Risk Assessment Caprini VTE Risk Assessment: Moderate/High Risk (score >= 2) (Subarachnoid bleed ) Caprini Risk Assessment Model: Point Value = 1 Point Value = 2 Point Value = 3 Point Value = 5 Age 41-60 Minor surgery BMI > 25 kg/m2 Swollen legs Varicose veins or History of unexplained or recurrent spontaneous Oral contraceptives or hormone replacement Sepsis (< 1 month) Serious lung disease, including pneumonia (< 1 month) Abnormal pulmonary function Acute myocardial infarction Congestive heart failure (< 1 month) History of inflammatory bowel disease Medical patient at bed rest Age 61-74 Arthroscopic surgery Major open surgery (> 45 min) Laparoscopic surgery (> 45 min) Malignancy Confined to bed (> 72 hours) Immobilizing plaster cast Central venous access Age >= 75 History of VTE Family history of VTE Factor V Leiden Prothrombin [id number] Lupus anticoagulant Anticardiolipin antibodies Elevated serum homocysteine Heparin-induced thrombocytopenia Other congenital or acquired thrombophilia Stroke (< 1 month) Elective arthroplasty Hip, pelvis, or leg fracture Acute spinal cord injury (< 1 month) Prophylaxis Regimen: Total Risk Factor Score Risk Level Prophylaxis Regimen 0-1 Low Early ambulation 2 Moderate Order ONE of the following: *Sequential Compression Device (SCD) *Heparin 5000 units SQ BID 3-4 Higher Order ONE of the following medications: *Heparin 5000 units SQ TID *Enoxaparin/Lovenox 40 mg SQ daily (WT < 150 kg, CrCl > 30 mL/min) *Enoxaparin/Lovenox 30 mg SQ daily (WT < 150 kg, CrCl > 10-29 mL/min) *Enoxaparin/Lovenox 30 mg SQ BID (WT < 150 kg, CrCl > 30 mL/min) AND/OR *Sequential Compression Device (SCD) 5 or more Highest Order ONE of the following medications: *Heparin 5000 units SQ TID (Preferred with Epidurals) *Enoxaparin/Lovenox 40 mg SQ daily (WT < 150 kg, CrCl > 30 mL/min) *Enoxaparin/Lovenox 30 mg SQ daily (WT < 150 kg, CrCl > 10-29 mL/min) *Enoxaparin/Lovenox 30 mg SQ BID (WT < 150 kg, CrCl > 30 mL/min) AND *Sequential Compression Device (SCD) Assessment and Plan - Assessment (1) Subarachnoid bleed Code(s): I60.9 - Nontraumatic subarachnoid hemorrhage, unspecified Status: Acute Plan: Ct shows small subarachnoid bleed, case discussed w/NS by Ed Archie, recommends F/U CT in 12 hours, will repeat at 1600 Neuro consult (2) UTI (urinary tract infection) Code(s): N39.0 - Urinary tract infection, site not specified Status: Acute Plan: Rocephin, follow culture/ sensitivity (3) Seizure disorder Code(s): G40.909 - Epilepsy, unspecified, not intractable, without status epilepticus Status: Acute Plan: Cont home medications Keppra (4) PVD (peripheral vascular disease) Code(s): I73.9 - Peripheral vascular disease, unspecified Status: Acute Plan: ASA, Plavix on hold 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
[2018-08-17] MEDS: Insulin NovoLOG Aspart Correctional Sugar Inj SQ SCH ×2 (16:47→23:08)
--- NOTE | 2018-08-17 17:06 | CT ---
EXAM DATE: 08/17/2018 5:00 PM EST AGE/SEX: 68 years / Female INDICATIONS: Soft tissue swelling history of bleed. CLINICAL DATA: This is the patient's initial encounter. Patient reports that signs and symptoms have been present for 1 day and indicates a pain score of 0/10. MEDICAL/SURGICAL HISTORY: Dementia. Hypertension. Peripheral vascular disease. Diabetes None. RADIATION DOSE: 34.90 CTDI (mGy) COMPARISON: [facility] [place], CT HEAD W/O CONTRAST, 08/17/2018. . TECHNIQUE: CT of the head without contrast. Using automated exposure control and adjustment of the mA and/or kV according to patient size, radiation dose was kept as low as reasonably achievable to ob tain optimal diagnostic quality images. DICOM format image data is available electronically for revi ew and comparison. FINDINGS: Cerebrum: Very minimal subarachnoid hemorrhage seen bilaterally. The ventricles are normal for age. No evidence of midline shift, mass lesion, or acute infarction. No extraaxial fluid collections are seen. Posterior Fossa: The cerebellum and brainstem are intact. The 4th ventricle is midline. The cerebe llopontine angle is unremarkable. Extracranial: The visualized portion of the orbits is intact. Extensive right periorbital and fronta l soft tissue contusion Skull: The calvaria is intact. No evidence of skull fracture. CONCLUSION: 1. Minimal bilateral subarachnoid hemorrhage. 2. No midline shift or mass effect. . Electronically signed by: Jonathan Rose MD 08/17/2018 5:04 PM EST
--- NOTE | 2018-08-17 19:55 | ECG ---
Date Performed: 08/17/2018 Time Performed: 05:09:17 PTAGE: 68 years EKG: Sinus rhythm SEPTAL MYOCARDIAL INFARCTION ABNORMAL ECG NO PREVIOUS TRACING DOCTOR: Pallavi Pelayo Interpretating Date/Time 08/17/2018 19:53:25
--- NOTE | 2018-08-17 20:49 | MB ---
cc: Harley Leung MD, PhD DATE: 08/17/2018 REASON FOR CONSULTATION: Subarachnoid hemorrhage. HISTORY OF PRESENT ILLNESS: Ms. Torres is a 68-year-old woman who is a resident at [facility]. She fell out of bed, striking her right face with a superficial hematoma. She had a CT scan of the brain performed, which revealed a small subarachnoid hemorrhage and possible superficial hemorrhagic contusions involving both frontal and parietal lobes. Followup CT revealed very minimal subarachnoid hemorrhage bilaterally, otherwise unremarkable. NEUROLOGICAL EXAMINATION: VITAL SIGNS: Her blood pressure is 168/77, pulse is 78, respirations are 16, temperature 97 degrees. NEUROLOGIC: Higher cortical function: She is alert, disoriented has poor recent memory. Follows simple commands. Cranial nerves: She has got significant right facial swelling. Pupils are equal and reactive. The extraocular movements are intact. Motor exam: She has normal strength and tone of all groups in both upper and lower extremities. Fine motor skills normal. There is no drift. LABORATORY DATA: White count 5900, hemoglobin 11.5, hematocrit 34.3%, platelet count 242,000. PT 10.4, INR 1, aPTT 28.8. Sodium is 135, potassium 5.6, chloride 102, CO2 26.8, BUN is 21, creatinine 1.16, GFR is 56, glucose 261. IMPRESSION: Probable post-traumatic subarachnoid hemorrhage. RECOMMENDATION: Followup CT of the brain in approximately 1 week. We will also order MRI and MRA of the brain just to be sure there is no small aneurysm present, although I suspect this subarachnoid hemorrhage is likely related to trauma. Harley Leung MD, PhD EMELY/sj , 06:07 PM , 06:15 PM
[2018-08-18] MEDS: amLODIPine 10 MG Tablet PO SCH (09:04)
[2018-08-18] MEDS: Carvedilol 12.5 MG Tablet PO SCH ×2 (09:04→20:25)
[2018-08-18] MEDS: levETIRAcetam 500 MG Tablet PO SCH ×2 (09:05→20:25)
[2018-08-18 09:09] LABS: Calcium 8.9 mg/dL (8.5-10.1); Carbon Dioxide 26.6 meq/L (21.0-32.0); Potassium 4.7 meq/L (3.5-5.1)
[2018-08-18] MEDS: Insulin NovoLOG Aspart Correctional Sugar Inj SQ SCH ×4 (09:30→21:46)
[2018-08-18] MEDS: Duloxetine 60 MG DR Capsule PO SCH (11:17)
--- NOTE | 2018-08-18 11:17 | XR ---
EXAM DATE: 08/18/2018 11:05 AM EST AGE/SEX: 68 years / Female INDICATIONS: MRI clearance. CLINICAL DATA: This is the patient's initial encounter. Patient reports that signs and symptoms have been present for 1 day and indicates a pain score of 0/10. MEDICAL/SURGICAL HISTORY: . Dementia. Hypertension. Peripheral vascular disease. Diabetes . COMPARISON: No prior exams available for comparison. FINDINGS: A single AP view of the chest demonstrates the lungs to be symmetrically aerated without evidence of mass, infiltrate or effusion. The cardiomediastinal contours are unremarkable. Osseous structures a re intact. CONCLUSION: No acute cardiac bony process. No contraindication to an MRI examination is seen. Electronically signed by: Raul Herrera MD 08/18/2018 11:15 AM EST
--- NOTE | 2018-08-18 11:18 | XR ---
EXAM DATE: 08/18/2018 11:03 AM EST AGE/SEX: 68 years / Female INDICATIONS: MRI clearance. CLINICAL DATA: This is the patient's initial encounter. Patient reports that signs and symptoms have been present for 1 day and indicates a pain score of 0/10. MEDICAL/SURGICAL HISTORY: . Dementia. Hypertension. Peripheral vascular disease. Diabetes . COMPARISON: None. FINDINGS: The abdominal bowel gas pattern is normal. There is a moderate amount stool seen throughout the col on. No abnormal masses or organomegaly is seen. The osseous structures are unremarkable. Rounded tru cifications are seen in the pelvis likely related to phleboliths. Scattered vascular calcifications a re seen. CONCLUSION: Negative KUB. No contraindication to an MRI examination is seen. Electronically signed by: Raul Herrera MD 08/18/2018 11:17 AM EST
--- NOTE | 2018-08-18 12:40 | MR ---
EXAM DATE: 08/18/2018 12:12 PM EST AGE/SEX: 68 years / Female INDICATIONS: . Fall with injury to right eye. CLINICAL DATA: This is the patient's subsequent encounter. Patient reports that signs and symptoms h ave been present for 2 days and indicates a pain score of 0/10. MEDICAL/SURGICAL HISTORY: Hypertension. Diabetes mellitus type II. Hypercholesterolemia. . Un known COMPARISON: [facility] [place], MRA HEAD W/O CONTRAST, 08/18/2018. . TECHNIQUE: Multiplanar, multisequence examination of the brain was performed without contrast. FINDINGS: Cerebrum: The ventricles are normal for age. No evidence of midline shift, mass lesion, hemorrhage or acute infarction. No extraaxial fluid collections are seen. The pituitary gland and suprasellar cistern are normal in configuration. White Matter: There is confluent increased signal seen in the cerebral white matter. Posterior Fossa: The cerebellum and brainstem are intact. The 4th ventricle is midline. The cerebel lopontine angle is unremarkable. The cerebellar tonsils are normal in position. Diffusion Imaging: No focal areas of restricted diffusion are seen. No evidence of acute infarction . Extracranial: The visualized portions of the orbits and paranasal sinuses are unremarkable. There is a 2 cm hematoma seen in the right superior periorbital region. There is soft tissue swelling over th e right periorbital and lateral face. CONCLUSION: 1. No acute intracranial abnormalities seen. 2. Periventricular demyelination. This is nonspecific. It could be from small vessel ischemic change . 3. Right periorbital and facial soft tissue swelling and hematoma. Electronically signed by: Raul Herrera MD 08/18/2018 12:38 PM EST
--- NOTE | 2018-08-18 13:00 | MR ---
EXAM DATE: 08/18/2018 12:07 PM EST AGE/SEX: 68 years / Female INDICATIONS: . Fall with right eye injury. CLINICAL DATA: This is the patient's subsequent encounter. Patient reports that signs and symptoms h ave been present for 2 days and indicates a pain score of 0/10. MEDICAL/SURGICAL HISTORY: Hypertension. Hypercholesterolemia. Diabetes mellitus type II. . Un known COMPARISON: [facility] [place], [place] HEAD W/O CONTRAST, 08/18/2018. . TECHNIQUE: 3D [id number] MRA was performed. Source images, multiplanar STS MIP, and 3D volum e MIP reconstructions were reviewed. FINDINGS: There is excellent visualization of the major intracranial arteries out to the second-order branch ve ssels. There is no evidence for aneurysm, vessel truncation or stenosis, and no evidence for vascula r malformation. CONCLUSION: Negative MRA of the brain. Electronically signed by: Raul Herrera MD 08/18/2018 12:59 PM EST
--- NOTE | 2018-08-18 13:42 | P.PNFP ---
Subjective Interval history: Patient non verbal, appears comfortable Daughter at bedside. Placement options discussed. Results - Labs Result diagrams: 08/17/18 03:40 08/18/18 08:11 Abnormal lab results 08/17/18 08/17/18 08/17/18 Range/Units 03:40 16:34 22:48 Sodium (136-145) meq/L BUN (7-18) mg/dL Creatinine (0.50-1.00) mg/dL Estimated GFR (>89) mL/min POC Glucose 172 H 324 H (68-110) mg/dl Random Glucose (74-106) mg/dL Urine Clarity Cloudy H (Clear) Urine Protein 30 H (Neg-Trace) mg/dL Urine Nitrate Positive H (Negative) Ur Leukocyte Esterase Large H (Negative) Urine WBC Clumps Many H (None) Urine Bacteria Many H (None) /hpf Urine Mucus Few H (Occasional) /lpf Urine Yeast Rare H (None) /hpf 08/18/18 08/18/18 08/18/18 Range/Units 08:11 09:06 12:25 Sodium 134 L (136-145) meq/L BUN 24 H (7-18) mg/dL Creatinine 1.21 H (0.50-1.00) mg/dL Estimated GFR 53 L (>89) mL/min POC Glucose 289 H 366 H (68-110) mg/dl Random Glucose 280 H (74-106) mg/dL Urine Clarity (Clear) Urine Protein (Neg-Trace) mg/dL Urine Nitrate (Negative) Ur Leukocyte Esterase (Negative) Urine WBC Clumps (None) Urine Bacteria (None) /hpf Urine Mucus (Occasional) /lpf Urine Yeast (None) /hpf BMP 08/18/18 08:11 Sodium 134 L Potassium 4.7 D Chloride 101 Carbon Dioxide 26.6 BUN 24 H Creatinine 1.21 H Calcium 8.9 Urine 08/17/18 Range/Units 03:40 Urine Color Yellow (Yellw/Straw) Urine Clarity Cloudy H (Clear) Urine pH 6.0 (5.0-8.5) Ur Specific [place] 1.007 (1.002-1.035) Urine Protein 30 H (Neg-Trace) mg/dL Urine Glucose (UA) 500 or greater (Negative) mg/dL - Imaging Impressions Head CT 08/17/18 16:00 CONCLUSION: 1. Minimal bilateral subarachnoid hemorrhage. 2. No midline shift or mass effect. . Abdomen X-Ray 08/18/18 00:00 CONCLUSION: Negative KUB. No contraindication to an MRI examination is seen. Chest X-Ray 08/18/18 00:00 CONCLUSION: No acute cardiac bony process. No contraindication to an MRI examination is seen. Head MRI 08/18/18 07:09 CONCLUSION: 1. No acute intracranial abnormalities seen. 2. Periventricular demyelination. This is nonspecific. It could be from small vessel ischemic change. 3. Right periorbital and facial soft tissue swelling and hematoma. Head MRA 08/18/18 07:09 CONCLUSION: Negative MRA of the brain. Physical Exam Vital signs: Vital Signs 08/17/18 16:00 08/17/18 20:00 08/17/18 22:30 Temperature 98.3 F 98.8 F Pulse Rate 78 83 Respiratory Rate 18 19 19 Blood Pressure 130/64 135/67 Pulse Oximetry 100 97 08/17/18 22:50 08/18/18 00:00 08/18/18 03:52 Temperature 98.1 F 99.8 F H 98.5 F Pulse Rate 93 H 81 74 Respiratory Rate 21 16 12 Blood Pressure 137/74 90/51 L 113/63 Pulse Oximetry 94 L 97 98 08/18/18 07:31 Temperature 97.6 F Pulse Rate 78 Respiratory Rate 18 Blood Pressure 106/59 L Pulse Oximetry 96 Intake & Output 08/17/18 08/18/18 08/18/18 18:59 06:59 18:59 Intake Total 800 / 800 100 / 100 Output Total 1050 / 1050 Balance -250 / -250 100 / 100 Intake: IV 100 / 100 100 / 100 Rocephin Inj 1,000 MG In NS Inj 100 / 100 100 / 100 100 ML @ 200 mls/hr IV.SIG Q12H [facility] Rx#:[id number] Oral 700 / 700 Output: Urine 1050 / 1050 - Constitutional no acute distress - Routine HEENT Exam Comments: Right eye with significant swelling, she is able to open eye - Routine Neck Exam Present: supple - Routine Respiratory Exam Present: CTA bilaterally - Routine Cardiovascular Exam Present: S1, S2 - Routine Abdominal Exam Present: soft, normoactive bowel sounds - Routine Extremities Exam Present: amputation Comments: L BKA - Routine Skin Exam Present: dry, warm - Routine Neurological Exam Present: alert Assessment and Plan - Assessment (1) Subarachnoid bleed Code(s): I60.9 - Nontraumatic subarachnoid hemorrhage, unspecified Status: Acute Plan: Ct shows small subarachnoid bleed, 12 hour FU shows small bleed, Neuro consulted, MRI. MRA ordered. Repeat CT in 1 week. 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 Daughter upset with mothers condition. Patient essentially non verbal, has nonsensical conversations. Appears comfortable. She was seen by neuro yesterday, MRI.MRA ordered and completed. Neuro recommends repeat CT in 1 week. restarting asa and Plavix appreciated. She is positive for UTI, > 100,000 Gram - rods, sensitivity pending. Family wishes not to return to previous facility, they will tour facilities today. DC when cleared by neuro and arrangement's made.
--- NOTE | 2018-08-18 19:42 | P.PNNEU ---
Subjective Subjective Comments: no new sx. Active Medications: Active Medications Amlodipine Besylate (Norvasc) 10 mg PO DAILY [facility] Last Admin: 08/18/18 09:04 Dose: 10 mg Carvedilol (Coreg) 25 mg PO BID [facility] Last Admin: 08/18/18 09:04 Dose: 25 mg Dextrose (D50w Vial) 50 ml IV.PUSH UNSCH PRN PRN Reason: PER HYPOGLYCEMIA PROTOCOL Duloxetine HCl (Cymbalta) 60 mg PO DAILY [facility] Last Admin: 08/18/18 11:17 Dose: 60 mg Glucagon (Glucagon Inj) 1 mg OTHER PRN PRN PRN Reason: for Hypoglycemia Protocol Ceftriaxone Sodium 1,000 mg/ (Sodium Chloride) 100 mls @ 200 mls/hr IV.SIG Q12H [facility] Last Infusion: 08/18/18 06:15 Dose: Infused Insulin Aspart (Novolog Insulin Correctional Sugar Inj) 0 unit SQ ACHS [facility]; Protocol Last Admin: 08/18/18 13:30 Dose: 9 unit Levetiracetam (Keppra) 1,000 mg PO BID [facility] Last Admin: 08/18/18 09:05 Dose: 1,000 mg Allergies/Adverse Reactions: Allergies Allergy/AdvReac Type Severity Reaction Status Date / Time insulin glargine Allergy Abdominal Verified 08/17/18 01:19 [From Lantus U-100 Insulin] Pain Penicillins Allergy Anaphylaxis Verified 08/17/18 01:19 Physical Exam Vital signs: Vital Signs 08/17/18 20:00 08/17/18 22:30 08/17/18 22:50 Temperature 98.8 F 98.1 F Pulse Rate 83 93 H Respiratory Rate 19 19 21 Blood Pressure 135/67 137/74 Pulse Oximetry 97 94 L 08/18/18 00:00 08/18/18 03:52 08/18/18 07:31 Temperature 99.8 F H 98.5 F 97.6 F Pulse Rate 81 74 78 Respiratory Rate 16 12 18 Blood Pressure 90/51 L 113/63 106/59 L Pulse Oximetry 97 98 96 08/18/18 08:00 08/18/18 15:00 Temperature 98.2 F Pulse Rate 74 Respiratory Rate 18 20 Blood Pressure 147/54 H Pulse Oximetry 96 Intake & Output 08/18/18 08/18/18 08/19/18 06:59 18:59 06:59 Intake Total 100 / 100 Output Total 750 / 750 Balance 100 / 100 -750 / -750 Intake: IV 100 / 100 Rocephin Inj 1,000 MG In NS Inj 100 / 100 100 ML @ 200 mls/hr IV.SIG Q12H [facility] Rx#:[id number] Output: Urine 750 / 750 Other: # Voids 1 - Routine Neurological Exam alert, follow commands CN intact. Right kaycee-orbital swelling MOTOR 5./5 BUE Objective Radiology Results: MRI brain normal for age. MRA brain normal with no aneurysm Laboratory Results - last 24 hr 08/17/18 08/17/18 08/18/18 03:40 22:48 08:11 Sodium 134 L Potassium 4.7 D Chloride 101 Carbon Dioxide 26.6 Anion Gap 6 BUN 24 H Creatinine 1.21 H Estimated GFR 53 L POC Glucose 324 H Random Glucose 280 H Calcium 8.9 Urine Color Yellow Urine Clarity Cloudy H Urine pH 6.0 Ur Specific [place] 1.007 Urine Protein 30 H Urine Glucose (UA) 500 or greater Urine Ketones Negative Urine Occult Blood Negative Urine Nitrate Positive H Urine Bilirubin Negative Urine Urobilinogen Less than 2 Ur Leukocyte Esterase Large H Urine RBC 1 Urine WBC Urine WBC Clumps Many H Urine Bacteria Many H Hyaline Casts 2 Urine Mucus Few H Urine Yeast Rare H Micro UA Comment Cath-culture ind Urine Culture Comments Cath-cult indicated 08/18/18 08/18/18 08/18/18 09:06 12:25 18:09 Sodium Potassium Chloride Carbon Dioxide Anion Gap BUN Creatinine Estimated GFR POC Glucose 289 H 366 H 70 Random Glucose Calcium Urine Color Urine Clarity Urine pH Ur Specific [place] Urine Protein Urine Glucose (UA) Urine Ketones Urine Occult Blood Urine Nitrate Urine Bilirubin Urine Urobilinogen Ur Leukocyte Esterase Urine RBC Urine WBC Urine WBC Clumps Urine Bacteria Hyaline Casts Urine Mucus Urine Yeast Micro UA Comment Urine Culture Comments Microbiology 08/17/18 03:40 Urine Culture - Preliminary Catheterized Urine gram negative rods Review/Management - Review/Management Plan: post traumatis subarachnoid hemorrhage. Neuro is stable
[2018-08-19 05:12] LABS: Hematocrit 34.8 % (35.0-46.0); Hemoglobin 11.7 gm/dL (11.6-15.3); Mean Corpuscular HGB Conc 33.6 % (32.0-36.0); Mean Corpuscular Hemoglobin 30.7 pg (27.0-34.0); Mean Corpuscular Volume 91.5 fL (80.0-100.0); Mean Platelet Volume 9.6 fL (7.0-11.0); Platelet Count 211 th/mm3 (150-450); Red Blood Count 3.81 mil/mm3 (4.00-5.30); Red Cell Distribution Width 14.6 % (11.6-17.2); White Blood Count 5.4 th/mm3 (4.0-11.0)
--- NOTE | 2018-08-19 07:30 | P.DS ---
Date of admission: 08/17/18 07:26 Primary care physician: Royer Cooper DO Brief History from admission: 68-year-old black female presents to the emergency department from [facility]. Patient allegedly had fallen out of bed striking her right face. She developed a hematoma. She is on plavix and ASA for PVD. She suffers from diabetes, hyperlipidemia, seizure disorder, hypertension, CVA, peripheral vascular disease and dementia. DS: Diagnosis - Discharge Diagnosis (1) Subarachnoid bleed Status: Acute (2) UTI (urinary tract infection) Status: Acute (3) Seizure disorder Status: Acute (4) PVD (peripheral vascular disease) Status: Acute (5) HTN (hypertension) Status: Acute (6) Dementia Status: Acute (7) Diabetes Status: Acute DS: Summary Hospital Course: Sent form senior care s/p alleged fall, Ct of head show small bleed, and right orbital swelling. Asa Plavix held, neuro consulted. Work up completed, recommended repeat CT in 1 week. 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 - Time Spent with Patient Total time spent providing and/or coordinating discharge services: 20 Less than 30 minutes - Quality: AMI Clinical Trial Participant: No - Quality: Stroke Symptom Onset Unknown: No - Quality: VTE Deep Vein Thrombosis/Pulmonary Embolism Present on Admission: No Exam Vital signs: Vital Signs 08/18/18 07:31 08/18/18 08:00 08/18/18 15:00 Temperature 97.6 F 98.2 F Pulse Rate 78 74 Respiratory Rate 18 18 20 Blood Pressure 106/59 L 147/54 H Pulse Oximetry 96 96 08/18/18 20:00 08/18/18 20:36 08/19/18 00:00 Temperature 98.2 F 97.9 F Pulse Rate 78 80 71 Respiratory Rate 20 20 Blood Pressure 110/57 L 103/58 L Pulse Oximetry 96 95 08/19/18 00:04 08/19/18 04:00 08/19/18 04:18 Temperature 98.0 F Pulse Rate 70 80 73 Respiratory Rate 20 Blood Pressure 120/63 Pulse Oximetry 97 Intake & Output 08/18/18 08/19/18 08/19/18 18:59 06:59 18:59 Intake Total 200 / 200 Output Total 750 / 750 1000 / 1000 Balance -750 / -750 -800 / -800 Weight 0 g Intake: IV 200 / 200 Rocephin Inj 1,000 MG In NS Inj 200 / 200 100 ML @ 200 mls/hr IV.SIG Q12H [facility] Rx#:[id number] Output: Urine 750 / 750 Urine Amount (Catheter) 1000 / 1000 Indwelling Temp Sensing 650 / 650 Catheter Indwelling Urethral Catheter 350 / 350 Other: # Voids 1 - Constitutional no acute distress - Routine HEENT Exam Eye: Present: periorbital swelling ENT: Present: mucous membranes moist - Routine Respiratory Exam Present: CTA bilaterally - Routine Cardiovascular Exam Present: S1, S2 - Routine Abdominal Exam Present: soft, normoactive bowel sounds - Routine Extremities Exam Present: amputation (Left) - Routine Skin Exam Present: dry, warm - Routine Neurological Exam Present: alert Results Procedures completed during hospitalization: N/A Labs on day of discharge: Labs from last 24 hours 08/19/18 08/18/18 08/18/18 04:38 20:27 18:49 WBC 5.4 RBC 3.81 L Hgb 11.7 Hct 34.8 L MCV 91.5 MCH 30.7 MCHC 33.6 RDW 14.6 Plt Count 211 MPV 9.6 Sodium Potassium Chloride Carbon Dioxide Anion Gap BUN Creatinine Estimated GFR POC Glucose 217 H 80 Random Glucose Calcium Urine Color Urine Clarity Urine pH Ur Specific [place] Urine Protein Urine Glucose (UA) Urine Ketones Urine Occult Blood Urine Nitrate Urine Bilirubin Urine Urobilinogen Ur Leukocyte Esterase Urine RBC Urine WBC Urine WBC Clumps Urine Bacteria Hyaline Casts Urine Mucus Urine Yeast Micro UA Comment Urine Culture Comments 08/18/18 08/18/18 08/18/18 18:09 12:25 09:06 WBC RBC Hgb Hct MCV MCH MCHC RDW Plt Count MPV Sodium Potassium Chloride Carbon Dioxide Anion Gap BUN Creatinine Estimated GFR POC Glucose 70 366 H 289 H Random Glucose Calcium Urine Color Urine Clarity Urine pH Ur Specific [place] Urine Protein Urine Glucose (UA) Urine Ketones Urine Occult Blood Urine Nitrate Urine Bilirubin Urine Urobilinogen Ur Leukocyte Esterase Urine RBC Urine WBC Urine WBC Clumps Urine Bacteria Hyaline Casts Urine Mucus Urine Yeast Micro UA Comment Urine Culture Comments 08/18/18 08/17/18 08:11 03:40 WBC RBC Hgb Hct MCV MCH MCHC RDW Plt Count MPV Sodium 134 L Potassium 4.7 D Chloride 101 Carbon Dioxide 26.6 Anion Gap 6 BUN 24 H Creatinine 1.21 H Estimated GFR 53 L POC Glucose Random Glucose 280 H Calcium 8.9 Urine Color Yellow Urine Clarity Cloudy H Urine pH 6.0 Ur Specific [place] 1.007 Urine Protein 30 H Urine Glucose (UA) 500 or greater Urine Ketones Negative Urine Occult Blood Negative Urine Nitrate Positive H Urine Bilirubin Negative Urine Urobilinogen Less than 2 Ur Leukocyte Esterase Large H Urine RBC 1 Urine WBC Urine WBC Clumps Many H Urine Bacteria Many H Hyaline Casts 2 Urine Mucus Few H Urine Yeast Rare H Micro UA Comment Cath-culture ind Urine Culture Comments Cath-cult indicated Preliminary micro results at discharge 08/17/18 03:40 Urine Culture - Preliminary Catheterized Urine gram negative rods - Impressions ITS Impressions Cervical Spine CT 08/17/18 03:26 CONCLUSION: 1. No fracture. 2. Diffuse degenerative changes. Head CT 08/17/18 16:00 CONCLUSION: 1. Minimal bilateral subarachnoid hemorrhage. 2. No midline shift or mass effect. . Abdomen X-Ray 08/18/18 00:00 CONCLUSION: Negative KUB. No contraindication to an MRI examination is seen. Chest X-Ray 08/18/18 00:00 CONCLUSION: No acute cardiac bony process. No contraindication to an MRI examination is seen. Head MRI 08/18/18 07:09 CONCLUSION: 1. No acute intracranial abnormalities seen. 2. Periventricular demyelination. This is nonspecific. It could be from small vessel ischemic change. 3. Right periorbital and facial soft tissue swelling and hematoma. Head MRA 08/18/18 07:09 CONCLUSION: Negative MRA of the brain. Discharge Plan - Discharge Disposition Patient Disposition: Discharge to SNF - Discharge Condition Condition: Stable - Discharge Order Discharge Orders: Discharge Order (Routine); Ordered 08/19/18 Ordered By: Ila Baig - Physicians Team Primary Care Provider: Royer Cooper Attending Provider: Royer Cooper Other Providers: Harley Leung MD, PhD ; [facility],[place]
[2018-08-19] MEDS: Insulin NovoLOG Aspart Correctional Sugar Inj SQ SCH ×4 (09:11→20:37)
[2018-08-19] MEDS: Carvedilol 12.5 MG Tablet PO SCH ×2 (09:12→20:37)
[2018-08-19] MEDS: Duloxetine 60 MG DR Capsule PO SCH (09:14)
[2018-08-19] MEDS: amLODIPine 10 MG Tablet PO SCH (09:15)
[2018-08-19] MEDS: levETIRAcetam 500 MG Tablet PO SCH ×2 (09:15→20:37)
[2018-08-19] MEDS: Nitrofurantoin Monohydrate-Macrocrystal 100 MG Capsule PO SCH ×2 (09:23→17:05)
--- NOTE | 2018-08-19 17:20 | P.PNWCN ---
Wound Care Nurse Consult Description: Received wound management consult for sacral pressure injury from Doctor Cooper. Communicated with: RN Ariadne doyle and KENNETH Baig Recommendation: 1.Please cleanse wound to sacral area with normal saline or wound cleanser and apply Cavilon skin barrier film to periwound and cover wound with opifoam gentle border 4x4 dressing. Change every 3 days or as needed if saturated or dislodged. 2.Apply antifungal powder to groin areas and leave open to air. 3. Turn patient every 2 hours from L side to R side, limiting time spent on back to P. T. and meals. Wound/Pressure Injury - Wound Sacrum Wound Staging: Stage II Wound Assessment: Ongoing Wound Type: Pressure Injury Is This a Chronic Wound: No Requested from Provider a Wound Care Consult: Yes (Wound care saw patient today) Length (cm): 1.8 Width (cm): 1.6 Depth (cm): 0.1 (~0.1cm) Wound Bed Appearance: [place] Surrounding Tissue Appearance: [place] Surrounding Tissue Temperature: Cool Drainage Amount: None Drainage Odor: No Odor Dressing Status: Changed Cleansing Solution: Saline Cover Dressing: Optifoam gentle 4x4 Wound Dressing Change Date: 08/19/18 Wound Margin Description: Wound margins are irregular, and open - Additional Information Patient seen on [facility] for evaluation of pressure ulcer to sacral area.Patient was turned with the assistance of Ariadne doyle RN and technical publications writer toward the R side to reveal partial thickness , 100% pink wound to sacral area. Wound was cleansed with normal saline. Wound appears to have mixed etiology of pressure, friction and moisture. Periwound noted with peeling, slightly denuded skin.Per RN patient is not having constant loose stools and patient has gonsalez catheter in place. Cavilon skin barrier film was applied to periwound area and wound was then covered with Optifoam gentle 4x4 dressing. Patient was positioned toward R side with pillows in place. Patient is also noted with denuded skin and excoriation noted to groin and bilateral inner thighs.RN applied Calazime skin protectant paste mixed with antifungal cream to these areas. Patient tolerated wound assessment and dressing change well.
[2018-08-20] MEDS: levETIRAcetam 500 MG Tablet PO SCH ×2 (08:06→22:14)
[2018-08-20] MEDS: Carvedilol 12.5 MG Tablet PO SCH ×2 (08:06→22:14)
[2018-08-20] MEDS: Insulin NovoLOG Aspart Correctional Sugar Inj SQ SCH ×4 (08:06→22:17)
[2018-08-20] MEDS: Nitrofurantoin Monohydrate-Macrocrystal 100 MG Capsule PO SCH ×2 (08:06→18:00)
[2018-08-20] MEDS: amLODIPine 10 MG Tablet PO SCH (08:06)
[2018-08-20] MEDS: Duloxetine 60 MG DR Capsule PO SCH (08:06)
--- NOTE | 2018-08-20 10:31 | P.PNFP ---
Subjective Interval history: Appears comfortable Denies pain, cp, sob Right eye swelling much improved DC held up yesterday r/t bed availability Results - Labs Result diagrams: 08/19/18 04:38 08/18/18 08:11 Abnormal lab results 08/19/18 08/19/18 08/19/18 Range/Units 11:31 16:34 20:29 POC Glucose 320 H 246 H 278 H (68-110) mg/dl 08/20/18 Range/Units 07:22 POC Glucose 407 H (68-110) mg/dl Physical Exam Vital signs: Vital Signs 08/19/18 10:43 08/19/18 12:00 08/19/18 16:20 Temperature 98.0 F 97.5 F L Pulse Rate 82 78 74 Respiratory Rate 18 18 Blood Pressure 101/59 L 112/58 L Pulse Oximetry 98 98 08/19/18 20:00 08/20/18 00:00 08/20/18 04:00 Temperature 98.6 F 97.8 F 97.6 F Pulse Rate 78 76 80 Respiratory Rate 18 18 18 Blood Pressure 110/56 L 117/57 L 115/58 L Pulse Oximetry 97 96 95 08/20/18 07:10 08/20/18 08:00 Temperature 98.1 F Pulse Rate 71 Respiratory Rate 16 16 Blood Pressure 113/57 L Pulse Oximetry 100 Intake & Output 08/19/18 08/20/18 08/20/18 18:59 06:59 18:59 Intake Total 100 / 100 100 / 100 Output Total 600 / 600 650 / 650 600 / 600 Balance -500 / -500 -650 / -650 -500 / -500 Intake: IV 100 / 100 100 / 100 Rocephin Inj 1,000 MG In NS Inj 100 / 100 100 / 100 100 ML @ 200 mls/hr IV.SIG Q12H [facility] Rx#:[id number] Output: Urine 650 / 650 600 / 600 Urine Amount (Catheter) 600 / 600 Indwelling Urethral Catheter 600 / 600 Other: Date of Last Bowel Movement 08/19/18 08/19/18 08/19/18 - Constitutional no acute distress - Routine HEENT Exam Head: Present: normocephalic Eye: Present: PERRL, periorbital swelling, periorbital tenderness (Right) - Routine Neck Exam Present: supple - Routine Respiratory Exam Present: CTA bilaterally - Routine Cardiovascular Exam Present: S1, S2 - Routine Abdominal Exam Present: soft, normoactive bowel sounds - Routine Neurological Exam Present: alert - Routine Psychiatric Exam Present: cooperative - Urinary Catheter Management Indwelling Urethral Catheter Cath placed during this visit: yes Reason for continuing: Chronic Urinary Retention Insertion date: 08/18/18 Insertion time: 20:30 Indwelling Temp Sensing Catheter Cath placed during this visit: yes, but has since been removed by the nurse Reason for continuing: Chronic Urinary Retention Removal date: 08/18/18 Removal time: 20:20 Assessment and Plan - Assessment (1) Subarachnoid bleed Code(s): I60.9 - Nontraumatic subarachnoid hemorrhage, unspecified Status: Acute Plan: Ct shows small subarachnoid bleed, 12 hour FU shows small bleed, Neuro consulted, MRI. MRA ordered. Repeat CT in 1 week. 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 Daughter upset with mothers condition. Patient essentially non verbal, has nonsensical conversations. Appears comfortable. She was seen by neuro yesterday, MRI.MRA ordered and completed. Neuro recommends repeat CT in 1 week. restarting asa and Plavix appreciated. She is positive for UTI, > 100,000 Gram - rods, sensitivity pending. Family wishes not to return to previous facility, they will tour facilities today. DC when cleared by neuro and arrangement's made. 08/20/18- Uneventful night reported, Vss Afebrile. Dc when bad available Progress Note: Quality - AMI Clinical Trial Participant: No
[2018-08-21] MEDS: amLODIPine 10 MG Tablet PO SCH ×2 (09:00→10:54)
--- NOTE | 2018-08-21 10:14 | P.PNFP ---
Subjective Interval history: No apparent distress Alert, w/ confusion CM working in placement. Results - Labs Result diagrams: 08/19/18 04:38 08/18/18 08:11 Abnormal lab results 08/20/18 08/20/18 08/20/18 Range/Units 11:28 17:22 19:52 POC Glucose 306 H 214 H 169 H (68-110) mg/dl 08/21/18 Range/Units 07:54 POC Glucose 380 H (68-110) mg/dl Physical Exam Vital signs: Vital Signs 08/20/18 12:00 08/20/18 16:00 08/20/18 18:12 Temperature 98.4 F 98.4 F Pulse Rate 70 76 77 Respiratory Rate 18 20 Blood Pressure 117/56 L 118/57 L Pulse Oximetry 94 L 97 08/20/18 20:00 08/21/18 00:00 08/21/18 04:00 Temperature 98.3 F 98.6 F 98.6 F Pulse Rate 70 80 72 Respiratory Rate 18 18 20 Blood Pressure 123/66 120/66 116/63 Pulse Oximetry 98 95 96 08/21/18 04:06 08/21/18 08:00 Temperature 98.7 F Pulse Rate 71 78 Respiratory Rate 18 Blood Pressure 121/58 L Pulse Oximetry 100 Intake & Output 08/20/18 08/21/18 08/21/18 18:59 06:59 18:59 Intake Total 100 / 100 200 / 200 Output Total 1000 / 1000 700 / 700 Balance -900 / -900 -500 / -500 Weight 58.9 kg Intake: IV 100 / 100 200 / 200 Rocephin Inj 1,000 MG In NS Inj 100 / 100 200 / 200 100 ML @ 200 mls/hr IV.SIG Q12H [facility] Rx#:[id number] Output: Urine 1000 / 1000 700 / 700 Other: Date of Last Bowel Movement 08/19/18 - Constitutional no acute distress - Routine HEENT Exam Head: Present: normocephalic Eye: Present: periorbital swelling ENT: Present: mucous membranes moist - Routine Neck Exam Present: supple - Routine Respiratory Exam Present: CTA bilaterally - Routine Cardiovascular Exam Present: S1, S2 - Routine Abdominal Exam Present: soft - Routine Skin Exam Present: dry, warm - Routine Neurological Exam Present: alert - Routine Psychiatric Exam Present: cooperative - Urinary Catheter Management Indwelling Urethral Catheter Cath placed during this visit: yes Reason for continuing: Chronic Urinary Retention Insertion date: 08/18/18 Insertion time: 20:30 Indwelling Temp Sensing Catheter Cath placed during this visit: yes, but has since been removed by the nurse Reason for continuing: Chronic Urinary Retention Removal date: 08/18/18 Removal time: 20:20 Assessment and Plan - Assessment (1) Subarachnoid bleed Code(s): I60.9 - Nontraumatic subarachnoid hemorrhage, unspecified Status: Acute Plan: Ct shows small subarachnoid bleed, 12 hour FU shows small bleed, Neuro consulted, MRI. MRA ordered. Repeat CT in 1 week. 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 Daughter upset with mothers condition. Patient essentially non verbal, has nonsensical conversations. Appears comfortable. She was seen by neuro yesterday, MRI.MRA ordered and completed. Neuro recommends repeat CT in 1 week. restarting asa and Plavix appreciated. She is positive for UTI, > 100,000 Gram - rods, sensitivity pending. Family wishes not to return to previous facility, they will tour facilities today. DC when cleared by neuro and arrangement's made. 08/20/18- Uneventful night reported, Vss Afebrile. Dc when bad available 08/21/18- No apparent distress, Vss afebrile. She is on isolation for ESBL, on IV Rocephin and Macrobid. Dc once arrangements made. Progress Note: Quality - AMI Clinical Trial Participant: No
[2018-08-21] MEDS: Insulin NovoLOG Aspart Correctional Sugar Inj SQ SCH ×4 (10:51→22:18)
[2018-08-21] MEDS: Duloxetine 60 MG DR Capsule PO SCH (10:53)
[2018-08-21] MEDS: levETIRAcetam 500 MG Tablet PO SCH ×2 (10:54→22:18)
[2018-08-21] MEDS: Carvedilol 12.5 MG Tablet PO SCH ×2 (10:54→22:18)
[2018-08-21] MEDS: Nitrofurantoin Monohydrate-Macrocrystal 100 MG Capsule PO SCH ×2 (10:54→18:42)
[2018-08-22 07:20] LABS: Calcium 9.2 mg/dL (8.5-10.1); Carbon Dioxide 21.6 meq/L (21.0-32.0); Potassium 4.5 meq/L (3.5-5.1)
[2018-08-22] MEDS: Nitrofurantoin Monohydrate-Macrocrystal 100 MG Capsule PO SCH (08:16)
[2018-08-22] MEDS: amLODIPine 10 MG Tablet PO SCH (08:16)
[2018-08-22] MEDS: Carvedilol 12.5 MG Tablet PO SCH ×2 (08:16→21:17)
[2018-08-22] MEDS: levETIRAcetam 500 MG Tablet PO SCH ×2 (08:17→21:17)
[2018-08-22] MEDS: Duloxetine 60 MG DR Capsule PO SCH (08:17)
[2018-08-22] MEDS: Insulin NovoLOG Aspart Correctional Sugar Inj SQ SCH ×4 (08:17→21:17)
[2018-08-22 09:03] LABS: Hematocrit 36.8 % (35.0-46.0); Mean Corpuscular HGB Conc 32.6 % (32.0-36.0); Mean Corpuscular Hemoglobin 30.9 pg (27.0-34.0); Mean Corpuscular Volume 94.7 fL (80.0-100.0); Mean Platelet Volume 9.7 fL (7.0-11.0); Platelet Count 177 th/mm3 (150-450); Red Blood Count 3.88 mil/mm3 (4.00-5.30); Red Cell Distribution Width 14.4 % (11.6-17.2); White Blood Count 5.5 th/mm3 (4.0-11.0)
--- NOTE | 2018-08-22 12:19 | P.PN ---
Subjective Interval history: Follow-up for posttraumatic subarachnoid hemorrhage, urinary tract infection with ESBL, diabetes, dementia. Patient is currently resting in bed. No acute concerns. She has a Schilling catheter in. Physical Exam Vital signs: Vital Signs 08/21/18 12:00 08/21/18 16:00 08/21/18 20:00 Temperature 98.2 F 98.8 F 98.3 F Pulse Rate 73 72 71 Respiratory Rate 20 18 18 Blood Pressure 116/64 124/67 122/65 Pulse Oximetry 98 97 98 08/22/18 00:00 08/22/18 04:00 08/22/18 08:00 Temperature 97.5 F L 98 F 98.1 F Pulse Rate 70 73 71 Respiratory Rate 18 18 20 Blood Pressure 118/63 117/59 L 126/63 Pulse Oximetry 98 95 96 Intake & Output 08/21/18 08/22/18 08/22/18 18:59 06:59 18:59 Intake Total 200 / 200 Output Total 1325 / 1325 Balance -1125 / -1125 Weight 62.3 kg Intake: IV 200 / 200 Rocephin Inj 1,000 MG In NS Inj 200 / 200 100 ML @ 200 mls/hr IV.SIG Q12H [facility] Rx#:[id number] Output: Urine 1325 / 1325 Other: Date of Last Bowel Movement 08/19/18 08/21/18 Narrative: GENERAL: Alert, NAD. Schilling catheter is in place. SKIN: Warm and dry. HEAD: Normocephalic. EYES: No scleral icterus. No injection or drainage. NECK: Supple, trachea midline. No JVD or lymphadenopathy. CARDIOVASCULAR: Regular rate and rhythm without murmurs, gallops, or rubs. RESPIRATORY: Breath sounds equal bilaterally. No accessory muscle use. GASTROINTESTINAL: Abdomen soft, non-tender, nondistended. MUSCULOSKELETAL: No cyanosis, or edema. BACK: Nontender without obvious deformity. No CVA tenderness. - Urinary Catheter Management Indwelling Urethral Catheter Cath placed during this visit: yes Reason for continuing: Chronic Urinary Retention Insertion date: 08/18/18 Insertion time: 20:30 Indwelling Temp Sensing Catheter Cath placed during this visit: yes, but has since been removed by the nurse Reason for continuing: Chronic Urinary Retention Removal date: 08/18/18 Removal time: 20:20 Results - Labs CBC & Chem 7: 08/22/18 08:30 08/22/18 06:39 Laboratory Results - last 24 hr 08/21/18 08/21/18 08/21/18 13:01 17:47 20:36 WBC RBC Hgb Hct MCV MCH MCHC RDW Plt Count MPV Sodium Potassium Chloride Carbon Dioxide Anion Gap BUN Creatinine Estimated GFR POC Glucose 360 H 233 H 176 H Random Glucose Calcium 08/22/18 08/22/18 08/22/18 06:39 08:13 08:30 WBC 5.5 RBC 3.88 L Hgb 12.0 Hct 36.8 MCV 94.7 MCH 30.9 MCHC 32.6 RDW 14.4 Plt Count 177 MPV 9.7 Sodium 136 Potassium 4.5 Chloride 100 Carbon Dioxide 21.6 Anion Gap 14 BUN 23 H Creatinine 1.12 H Estimated GFR 58 L POC Glucose 404 H Random Glucose 418 H Calcium 9.2 - Procedures N/A Assessment and Plan - Plan Ms. Torres is a 68-year-old -[place] female with a history of PVD, dementia, previous CVA, seizure disorder, diabetes mellitus who was brought to the hospital from [facility] due to a fall where she hit her right face. CT scan in the emergency department showed possible small volume subarachnoid hemorrhage. Routine urinalysis shows possible UTI and later on the culture grew Proteus and ESBL E. coli. Small subarachnoid hemorrhage Neurology consulted. MRI and MRA were unremarkable for any acute findings. Neurology recommended repeat CT scan in 1 week. Dementia Seizure disorder Continue Keppra 1000 mg twice daily. Possible UTI Not able to determine if patient is symptomatic. Patient is currently on ceftriaxone 1 g every 24 hours as well as nitrofurantoin 100 mg p.o. twice daily Hypertension Continue amlodipine 10 mg, carvedilol 25 mg twice daily. Diabetes mellitus Patient is currently on sliding scale insulin with aspart. We will start patient on 7 units of Levemir tonight. Full code. If patient does not go to SNF today, we should consider Lovenox/ heparin for DVT prophylaxis. Progress Note: Quality - AMI Clinical Trial Participant: No
--- NOTE | 2018-08-22 12:46 | P.PNNEU ---
Subjective Subjective Comments: no new c/o Active Medications: Active Medications Amlodipine Besylate (Norvasc) 10 mg PO DAILY [facility] Last Admin: 08/22/18 08:16 Dose: 10 mg Carvedilol (Coreg) 25 mg PO BID [facility] Last Admin: 08/22/18 08:16 Dose: 25 mg Dextrose (D50w Vial) 50 ml IV.PUSH UNSCH PRN PRN Reason: PER HYPOGLYCEMIA PROTOCOL Duloxetine HCl (Cymbalta) 60 mg PO DAILY [facility] Last Admin: 08/22/18 08:17 Dose: 60 mg Glucagon (Glucagon Inj) 1 mg OTHER PRN PRN PRN Reason: for Hypoglycemia Protocol Ceftriaxone Sodium 1,000 mg/ (Sodium Chloride) 100 mls @ 200 mls/hr IV.SIG Q12H [facility] Last Infusion: 08/22/18 05:55 Dose: Infused Insulin Aspart (Novolog Insulin Correctional Sugar Inj) 0 unit SQ [facility]; Protocol Last Admin: 08/22/18 08:17 Dose: 9 unit Insulin Detemir (Levemir Inj) 7 unit SQ [facility] Levetiracetam (Keppra) 1,000 mg PO BID [facility] Last Admin: 08/22/18 08:17 Dose: 1,000 mg [facility]itrofurantoin [facility] Stop: 08/29/18 09:14 Last Admin: 08/22/18 08:16 Dose: 100 mg Allergies/Adverse Reactions: Allergies Allergy/AdvReac Type Severity Reaction Status Date / Time insulin glargine Allergy Abdominal Verified 08/17/18 01:19 [From Lantus U-100 Insulin] Pain Penicillins Allergy Anaphylaxis Verified 08/17/18 01:19 Physical Exam Vital signs: Vital Signs 08/21/18 16:00 08/21/18 20:00 08/22/18 00:00 Temperature 98.8 F 98.3 F 97.5 F L Pulse Rate 72 71 70 Respiratory Rate 18 18 18 Blood Pressure 124/67 122/65 118/63 Pulse Oximetry 97 98 98 08/22/18 04:00 08/22/18 08:00 Temperature 98 F 98.1 F Pulse Rate 73 71 Respiratory Rate 18 20 Blood Pressure 117/59 L 126/63 Pulse Oximetry 95 96 Intake & Output 08/21/18 08/22/18 08/22/18 18:59 06:59 18:59 Intake Total 200 / 200 Output Total 1325 / 1325 Balance -1125 / -1125 Weight 62.3 kg Intake: IV 200 / 200 Rocephin Inj 1,000 MG In NS Inj 200 / 200 100 ML @ 200 mls/hr IV.SIG Q12H [facility] Rx#:[id number] Output: Urine 1325 / 1325 Other: Date of Last Bowel Movement 08/19/18 08/21/18 - Routine Neurological Exam lethargic, follow simple commands CN intact MOTOR--generalized weakness. No focal deficits. - Urinary Catheter Management Indwelling Urethral Catheter Cath placed during this visit: yes Reason for continuing: Chronic Urinary Retention Insertion date: 08/18/18 Insertion time: 20:30 Indwelling Temp Sensing Catheter Cath placed during this visit: yes, but has since been removed by the nurse Reason for continuing: Chronic Urinary Retention Removal date: 08/18/18 Removal time: 20:20 Objective Laboratory Results - last 24 hr 08/21/18 08/21/18 08/21/18 13:01 17:47 20:36 WBC RBC Hgb Hct MCV MCH MCHC RDW Plt Count MPV Sodium Potassium Chloride Carbon Dioxide Anion Gap BUN Creatinine Estimated GFR POC Glucose 360 H 233 H 176 H Random Glucose Calcium 08/22/18 08/22/18 08/22/18 06:39 08:13 08:30 WBC 5.5 RBC 3.88 L Hgb 12.0 Hct 36.8 MCV 94.7 MCH 30.9 MCHC 32.6 RDW 14.4 Plt Count 177 MPV 9.7 Sodium 136 Potassium 4.5 Chloride 100 Carbon Dioxide 21.6 Anion Gap 14 BUN 23 H Creatinine 1.12 H Estimated GFR 58 L POC Glucose 404 H Random Glucose 418 H Calcium 9.2 Review/Management - Review/Management Plan: post traumatic subarachnoid hemorrhage on CT. No finding on MRI Recommend repeat CT brain in about a week
[2018-08-22] MEDS ORDERED: Insulin Detemir Inj 1,000 UNIT/10 ML Vial SQ SCH (21:00)
--- NOTE | 2018-08-23 09:23 | P.PN ---
Subjective Interval history: Follow-up for posttraumatic subarachnoid hemorrhage, urinary tract infection with ESBL, diabetes, dementia. Patient is currently doing well. She is more responsive today. She answers questions appropriately with short sentences. No fever or chills. Physical Exam Vital signs: Vital Signs 08/22/18 12:00 08/22/18 16:00 08/22/18 20:00 Temperature 98.2 F 98.1 F 98.4 F Pulse Rate 69 71 75 Respiratory Rate 20 20 18 Blood Pressure 112/59 L 109/58 L 107/69 Pulse Oximetry 98 100 98 08/23/18 00:00 08/23/18 03:15 08/23/18 04:00 Temperature 98.0 F 97.7 F Pulse Rate 67 65 Respiratory Rate 18 18 18 Blood Pressure 114/64 120/66 Pulse Oximetry 96 97 08/23/18 07:39 08/23/18 08:00 Temperature 98.5 F Pulse Rate 76 Respiratory Rate 18 18 Blood Pressure 121/64 Pulse Oximetry 100 Intake & Output 08/22/18 08/23/18 08/23/18 18:59 06:59 18:59 Intake Total 100 / 100 Output Total 650 / 650 950 / 950 Balance -650 / -650 -850 / -850 Weight 58.7 kg Intake: IV 100 / 100 INVanz Inj 1,000 MG In NS Inj 100 / 100 100 ML @ 200 mls/hr IV.SIG Q24H [facility] Rx#:[id number] Output: Urine Amount (Catheter) 650 / 650 950 / 950 Indwelling Urethral Catheter 650 / 650 950 / 950 Other: Date of Last Bowel Movement 08/21/18 08/22/18 08/22/18 # Bowel Movements 1 # Incontinent Bowel Movements 1 Narrative: GENERAL: Alert, NAD. Schilling catheter is in place. SKIN: Warm and dry. HEAD: Normocephalic. EYES: No scleral icterus. No injection or drainage. NECK: Supple, trachea midline. No JVD or lymphadenopathy. CARDIOVASCULAR: Regular rate and rhythm without murmurs, gallops, or rubs. RESPIRATORY: Breath sounds equal bilaterally. No accessory muscle use. GASTROINTESTINAL: Abdomen soft, non-tender, nondistended. MUSCULOSKELETAL: No cyanosis, or edema. BACK: Nontender without obvious deformity. No CVA tenderness. - Urinary Catheter Management Indwelling Urethral Catheter Cath placed during this visit: yes Reason for continuing: Chronic Urinary Retention Insertion date: 08/18/18 Insertion time: 20:30 Indwelling Temp Sensing Catheter Cath placed during this visit: yes, but has since been removed by the nurse Reason for continuing: Chronic Urinary Retention Removal date: 08/18/18 Removal time: 20:20 Results - Labs CBC & Chem 7: 08/22/18 08:30 08/22/18 06:39 Laboratory Results - last 24 hr 08/22/18 08/22/18 08/22/18 13:12 17:10 21:09 POC Glucose 444 H 405 H 280 H 08/23/18 07:31 POC Glucose 204 H - Procedures N/A Assessment and Plan - Plan Ms. Torres is a 68-year-old -Surinamese female with a history of PVD, dementia, previous CVA, seizure disorder, diabetes mellitus who was brought to the hospital from [facility] and rehab due to a fall where she hit her right face. CT scan in the emergency department showed possible small volume subarachnoid hemorrhage. Routine urinalysis shows possible UTI and later on the culture grew Proteus and ESBL E. coli. Small subarachnoid hemorrhage Neurology consulted. MRI and MRA were unremarkable for any acute findings. Neurology recommended repeat CT scan in 1 week. Dementia Seizure disorder Continue Keppra 1000 mg twice daily. Possible UTI Not able to determine if patient is symptomatic. We switched antibiotics to ertapenem 1 g every 24 hours. We recommend continuing ertapenem for 7 days. Hypertension Continue amlodipine 10 mg, carvedilol 25 mg twice daily. Diabetes mellitus Patient is currently on sliding scale insulin with aspart. Continue Levemir 7 units nightly. Will increase to 10 units. Blood glucose is much better controlled today. Goal blood glucose 880924. Full code. Placement is difficult due to fewer choices of SNF. Progress Note: Quality - AMI Clinical Trial Participant: No
[2018-08-23] MEDS: Insulin NovoLOG Aspart Correctional Sugar Inj SQ SCH ×4 (10:01→21:41)
[2018-08-23] MEDS: Duloxetine 60 MG DR Capsule PO SCH (10:02)
[2018-08-23] MEDS: Carvedilol 12.5 MG Tablet PO SCH ×2 (10:02→21:41)
[2018-08-23] MEDS: amLODIPine 10 MG Tablet PO SCH (10:02)
[2018-08-23] MEDS: levETIRAcetam 500 MG Tablet PO SCH ×2 (10:02→21:41)
[2018-08-23] MEDS ORDERED: Insulin Detemir Inj 1,000 UNIT/10 ML Vial SQ SCH (21:00)
[2018-08-24] MEDS: levETIRAcetam 500 MG Tablet PO SCH ×2 (08:30→20:02)
[2018-08-24] MEDS: Duloxetine 60 MG DR Capsule PO SCH (08:30)
[2018-08-24] MEDS: Insulin NovoLOG Aspart Correctional Sugar Inj SQ SCH ×4 (08:30→20:02)
[2018-08-24] MEDS: Carvedilol 12.5 MG Tablet PO SCH ×2 (08:30→20:02)
[2018-08-24] MEDS: amLODIPine 10 MG Tablet PO SCH (08:30)
--- NOTE | 2018-08-24 11:53 | P.PNIM ---
Subjective Interval history: Follow-up for posttraumatic subarachnoid hemorrhage, urinary tract infection with ESBL, diabetes, dementia. Patient is doing well. She does not talk much but points appropriately. No fever or chills. Physical Exam Vital signs: Last Vital Signs Temp 97.8 F 08/24/18 08:10 Pulse 70 08/24/18 08:10 Resp 20 08/24/18 08:10 BP 131/71 08/24/18 08:10 Pulse Ox 97 08/24/18 08:10 Intake & Output 08/22/18 08/23/18 08/24/18 08/25/18 06:59 06:59 06:59 06:59 Intake Total 200 / 200 100 / 100 800 / 800 Output Total 1325 / 1325 1600 / 1600 780 / 780 Balance -1125 / -1125 -1500 / -1500 Weight 62.3 kg 58.7 kg 61.2 kg Narrative: GENERAL: Alert, NAD. Schilling catheter is in place. SKIN: Warm and dry. HEAD: Normocephalic. EYES: No scleral icterus. No injection or drainage. NECK: Supple, trachea midline. No JVD or lymphadenopathy. CARDIOVASCULAR: Regular rate and rhythm without murmurs, gallops, or rubs. RESPIRATORY: Breath sounds equal bilaterally. No accessory muscle use. GASTROINTESTINAL: Abdomen soft, non-tender, nondistended. MUSCULOSKELETAL: No cyanosis, or edema. BACK: Nontender without obvious deformity. No CVA tenderness. Urinary Catheter Management Indwelling Urethral Catheter: Cath placed during this visit: yes Urethral indwelling: No Insertion date: 08/18/18 Insertion time: 20:30 Indwelling Temp Sensing Catheter: Cath placed during this visit: yes, but has since been removed by the nurse Removal date: 08/18/18 Removal time: 20:20 Results Labs CBC & Chem 7: 08/22/18 08:30 08/22/18 06:39 Procedures Procedures: N/A Assessment and Plan Plan Ms. Torres is a 68-year-old -Marshallese female with a history of PVD, dementia, previous CVA, seizure disorder, diabetes mellitus who was brought to the hospital from [facility] due to a fall where she hit her right face. CT scan in the emergency department showed possible small volume subarachnoid hemorrhage. Routine urinalysis shows possible UTI and later on the culture grew Proteus and ESBL E. coli. Small subarachnoid hemorrhage Neurology consulted. MRI and MRA were unremarkable for any acute findings. Neurology recommended repeat CT scan in 1 week. Dementia Seizure disorder Continue Keppra 1000 mg twice daily. Possible UTI Not able to determine if patient is symptomatic. We switched antibiotics to ertapenem 1 g every 24 hours. We recommend continuing ertapenem for a total of 7 days. Hypertension Continue amlodipine 10 mg, carvedilol 25 mg twice daily. Diabetes mellitus Patient is currently on sliding scale insulin with aspart. Continue Levemir 10 --> 12 units QHS. Goal blood glucose 609449. Full code. No pharmacological DVT prophylaxis due to subarachnoid hemorrhage. Placement is difficult due to fewer choices of SNF. Progress Note: Quality AMI Clinical Trial Participant: No VTE Deep Vein Thrombosis/Pulmonary Embolism Present on Admission: No
[2018-08-24] MEDS: Insulin Detemir Inj 1,000 UNIT/10 ML Vial SQ SCH ×2 (14:23→20:02)
[2018-08-25] MEDS: Carvedilol 12.5 MG Tablet PO SCH ×2 (09:53→21:30)
[2018-08-25] MEDS: levETIRAcetam 500 MG Tablet PO SCH ×2 (09:54→21:30)
[2018-08-25] MEDS: amLODIPine 10 MG Tablet PO SCH (09:54)
[2018-08-25] MEDS: Duloxetine 60 MG DR Capsule PO SCH (09:54)
[2018-08-25] MEDS: Insulin NovoLOG Aspart Correctional Sugar Inj SQ SCH ×4 (09:56→21:45)
--- NOTE | 2018-08-25 12:38 | P.PNFP ---
Subjective Interval history: Delayed entry, seen earlier this am No apparent distress, Follows some simple commands No verbal this am. Results - Labs Result diagrams: 08/22/18 08:30 08/25/18 08:52 Abnormal lab results 08/24/18 08/24/18 08/25/18 Range/Units 17:01 19:49 06:48 POC Glucose 220 H 179 H 45 L* (68-110) mg/dl Random Glucose (74-106) mg/dL 08/25/18 08/25/18 Range/Units 06:57 08:52 POC Glucose 257 H (68-110) mg/dl Random Glucose 139 H (74-106) mg/dL Physical Exam Vital signs: Vital Signs 08/24/18 14:35 08/24/18 19:56 08/24/18 20:00 Temperature 97.3 F L 98.0 F Pulse Rate 69 69 70 Respiratory Rate 20 18 Blood Pressure 151/77 H 128/82 Pulse Oximetry 93 L 98 08/24/18 22:55 08/25/18 00:00 08/25/18 00:15 Temperature 98.1 F Pulse Rate 68 68 Respiratory Rate 18 18 Blood Pressure 108/66 Pulse Oximetry 100 08/25/18 02:02 08/25/18 03:50 08/25/18 04:00 Temperature 97.8 F Pulse Rate 68 71 Respiratory Rate 18 20 Blood Pressure 116/66 Pulse Oximetry 99 08/25/18 07:10 08/25/18 09:00 08/25/18 11:45 Temperature 97.9 F 97.8 F Pulse Rate 69 71 72 Respiratory Rate 20 20 Blood Pressure 123/63 132/70 Pulse Oximetry 97 96 Intake & Output 08/24/18 08/25/18 08/25/18 18:59 06:59 18:59 Intake Total 100 / 100 Output Total 1400 / 1400 1130 / 1130 275 / 275 Balance -1300 / -1300 -1130 / -1130 -275 / -275 Weight 61.6 kg Intake: IV 100 / 100 INVanz Inj 1,000 MG In NS Inj 100 / 100 100 ML @ 200 mls/hr IV.SIG Q24H [facility] Rx#:[id number] Output: Urine Amount (Catheter) 1399 / 1399 1130 / 1130 275 / 275 Indwelling Urethral Catheter 1399 / 1399 1130 / 1130 275 / 275 Other: Date of Last Bowel Movement 08/22/18 08/25/18 08/24/18 # Incontinent Bowel Movements 2 - Constitutional no acute distress - Routine Respiratory Exam Present: CTA bilaterally, diminished air movement - Routine Cardiovascular Exam Present: S1, S2 - Routine Abdominal Exam Present: soft, normoactive bowel sounds - Routine Extremities Exam Present: amputation - Routine Skin Exam Present: dry, warm - Routine Neurological Exam Present: alert - Urinary Catheter Management Indwelling Urethral Catheter Cath placed during this visit: yes Urethral indwelling: No Reason for continuing: Chronic Urinary Retention Insertion date: 08/18/18 Insertion time: 20:30 Indwelling Temp Sensing Catheter Cath placed during this visit: yes, but has since been removed by the nurse Reason for continuing: Chronic Urinary Retention Removal date: 08/18/18 Removal time: 20:20 Assessment and Plan - Assessment (1) Subarachnoid bleed Code(s): I60.9 - Nontraumatic subarachnoid hemorrhage, unspecified Status: Acute Plan: Stable Neuro following Repeat CT in 1 week. 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 - Assessment and Plan 08/18/18- Seen earlier this am, family at bedside. Daughter upset with mothers condition. Patient essentially non verbal, has nonsensical conversations. Appears comfortable. She was seen by neuro yesterday, MRI.MRA ordered and completed. Neuro recommends repeat CT in 1 week. restarting asa and Plavix appreciated. She is positive for UTI, > 100,000 Gram - rods, sensitivity pending. Family wishes not to return to previous facility, they will tour facilities today. DC when cleared by neuro and arrangement's made. 08/20/18- Uneventful night reported, Vss Afebrile. Dc when bad available 08/21/18- No apparent distress, Vss afebrile. She is on isolation for ESBL, on IV Rocephin and Macrobid. Dc once arrangements made. 08/25/18- Sleepy this am, arousalable will follow simile commands. She has low BS this am 45, hypoglycemia protocol. MITTAL adjusted. Will cont to monitor. CM cont to work on placement. Progress Note: Quality - AMI Clinical Trial Participant: No
[2018-08-25] MEDS: Insulin Detemir Inj 1,000 UNIT/10 ML Vial SQ SCH (21:46)
--- NOTE | 2018-08-26 08:09 | P.PNFP ---
Subjective Interval history: Appears comfortable, follows simple commands Results - Labs Result diagrams: 08/22/18 08:30 08/25/18 08:52 Abnormal lab results 08/25/18 08/25/18 08/25/18 Range/Units 08:52 12:19 16:10 POC Glucose 196 H 192 H (68-110) mg/dl Random Glucose 139 H (74-106) mg/dL 08/25/18 08/26/18 Range/Units 21:29 07:13 POC Glucose 210 H 163 H (68-110) mg/dl Random Glucose (74-106) mg/dL Physical Exam Vital signs: Vital Signs 08/25/18 09:00 08/25/18 11:45 08/25/18 12:00 Temperature 97.8 F Pulse Rate 71 72 67 Respiratory Rate 20 Blood Pressure 132/70 Pulse Oximetry 96 08/25/18 16:00 08/25/18 17:44 08/25/18 20:00 Temperature 97.2 F L 97.9 F Pulse Rate 73 72 76 Respiratory Rate 20 18 Blood Pressure 117/72 113/59 L Pulse Oximetry 99 100 08/25/18 22:47 08/26/18 00:00 08/26/18 00:25 Temperature 97.9 F Pulse Rate 73 77 Respiratory Rate 18 20 Blood Pressure 103/54 L Pulse Oximetry 97 08/26/18 01:46 08/26/18 04:00 08/26/18 04:52 Temperature 97.9 F Pulse Rate 73 72 Respiratory Rate 18 18 Blood Pressure 108/65 Pulse Oximetry 98 08/26/18 07:44 Temperature Pulse Rate Respiratory Rate 17 Blood Pressure Pulse Oximetry Intake & Output 08/25/18 08/26/18 08/26/18 18:59 06:59 18:59 Intake Total 100 / 100 Output Total 775 / 775 550 / 550 Balance -675 / -675 -550 / -550 Weight 62 kg Intake: IV 100 / 100 INVanz Inj 1,000 MG In NS Inj 100 / 100 100 ML @ 200 mls/hr IV.SIG Q24H [facility] Rx#:[id number] Output: Urine 550 / 550 Urine Amount (Catheter) 775 / 775 Indwelling Urethral Catheter 775 / 775 Other: Date of Last Bowel Movement 08/24/18 08/26/18 08/26/18 # Bowel Movements 1 # Incontinent Bowel Movements 1 - Constitutional no acute distress - Routine HEENT Exam ENT: Present: mucous membranes moist - Routine Respiratory Exam Present: CTA bilaterally - Routine Cardiovascular Exam Present: S1, S2 - Routine Abdominal Exam Present: soft, normoactive bowel sounds - Routine Extremities Exam Present: amputation - Routine Skin Exam Present: dry, warm - Routine Neurological Exam Present: alert - Routine Psychiatric Exam Present: cooperative - Urinary Catheter Management Indwelling Urethral Catheter Cath placed during this visit: yes Urethral indwelling: No Reason for continuing: Chronic Urinary Retention Insertion date: 08/18/18 Insertion time: 20:30 Indwelling Temp Sensing Catheter Cath placed during this visit: yes, but has since been removed by the nurse Reason for continuing: Chronic Urinary Retention Removal date: 08/18/18 Removal time: 20:20 Assessment and Plan - Assessment (1) Subarachnoid bleed Code(s): I60.9 - Nontraumatic subarachnoid hemorrhage, unspecified Status: Acute Plan: Stable Neuro following Repeat CT in 1 week. 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 - Assessment and Plan 08/18/18- Seen earlier this am, family at bedside. Daughter upset with mothers condition. Patient essentially non verbal, has nonsensical conversations. Appears comfortable. She was seen by neuro yesterday, MRI.MRA ordered and completed. Neuro recommends repeat CT in 1 week. restarting asa and Plavix appreciated. She is positive for UTI, > 100,000 Gram - rods, sensitivity pending. Family wishes not to return to previous facility, they will tour facilities today. DC when cleared by neuro and arrangement's made. 08/20/18- Uneventful night reported, Vss Afebrile. Dc when bad available 08/21/18- No apparent distress, Vss afebrile. She is on isolation for ESBL, on IV Rocephin and Macrobid. Dc once arrangements made. 08/25/18- Sleepy this am, arousalable will follow simile commands. She has low BS this am 45, hypoglycemia protocol. MITTAL adjusted. Will cont to monitor. CM cont to work on placement. 08/26/18/ Seen this am, she is found in bed, appears comfortable. Schilling to bedside, urine clear. She is getting Iv ertapenem for ESBL. Will repeats CT of head per neurology Rec's, restart ASA, plavix per neuro. Case management working on placement. Difficult placement. Progress Note: Quality - AMI Clinical Trial Participant: No
[2018-08-26] MEDS: levETIRAcetam 500 MG Tablet PO SCH ×2 (10:22→22:24)
[2018-08-26] MEDS: Duloxetine 60 MG DR Capsule PO SCH (10:23)
[2018-08-26] MEDS: Carvedilol 12.5 MG Tablet PO SCH ×3 (10:23→22:26)
[2018-08-26] MEDS: amLODIPine 10 MG Tablet PO SCH (10:23)
[2018-08-26] MEDS: Insulin NovoLOG Aspart Correctional Sugar Inj SQ SCH ×4 (10:23→21:30)
[2018-08-26] MEDS: Insulin Detemir Inj 1,000 UNIT/10 ML Vial SQ SCH (21:30)
[2018-08-27] MEDS: Insulin NovoLOG Aspart Correctional Sugar Inj SQ SCH ×4 (08:01→20:30)
[2018-08-27] MEDS: levETIRAcetam 500 MG Tablet PO SCH ×2 (09:30→22:01)
[2018-08-27] MEDS: Duloxetine 60 MG DR Capsule PO SCH (09:30)
[2018-08-27] MEDS: Carvedilol 12.5 MG Tablet PO SCH ×2 (09:30→22:01)
[2018-08-27] MEDS: amLODIPine 10 MG Tablet PO SCH (09:30)
--- NOTE | 2018-08-27 10:52 | P.DS ---
Date of admission: 08/17/18 07:26 Primary care physician: Royer Cooper DO Brief History from admission: 68-year-old black female presents to the emergency department from [facility] and rehab. Patient allegedly had fallen out of bed striking her right face. She developed a hematoma. She is on plavix and ASA for PVD. She suffers from diabetes, hyperlipidemia, seizure disorder, hypertension, CVA, peripheral vascular disease and dementia. DS: Diagnosis - Discharge Diagnosis (1) Subarachnoid bleed Status: Acute (2) UTI (urinary tract infection) Status: Acute (3) Seizure disorder Status: Acute (4) PVD (peripheral vascular disease) Status: Acute (5) HTN (hypertension) Status: Acute (6) Dementia Status: Acute (7) Diabetes Status: Acute DS: Summary Hospital Course: Sent form snf s/p alleged fall, Ct of head show small bleed, and right orbital swelling. Asa Plavix held, neuro consulted. Work up completed, recommended observation with repeat CT in 1 week. She was found to have UTI on admission culture shows ESBL, treated with Iv ertapenem. Placement has been delayed related to no exterminator beds. Ct of head on 08/27 is stable - Time Spent with Patient Total time spent providing and/or coordinating discharge services: 20 Less than 30 minutes - Quality: AMI Clinical Trial Participant: No - Quality: Stroke Symptom Onset Unknown: No - Quality: VTE Is this test being ordered to rule out VTE?: No Deep Vein Thrombosis/Pulmonary Embolism Present on Admission: No Exam Vital signs: Vital Signs 08/26/18 12:00 08/26/18 16:00 08/26/18 20:00 Temperature 97.8 F 97.7 F 98.3 F Pulse Rate 74 74 76 Respiratory Rate 16 16 18 Blood Pressure 115/67 106/64 114/78 Pulse Oximetry 97 98 98 08/27/18 00:00 08/27/18 04:00 08/27/18 08:30 Temperature 97.9 F 97.9 F 97.8 F Pulse Rate 73 72 88 Respiratory Rate 20 20 20 Blood Pressure 122/70 130/80 121/64 Pulse Oximetry 98 96 95 Intake & Output 08/26/18 08/27/18 08/27/18 18:59 06:59 18:59 Intake Total 580 / 580 400 / 400 Output Total 1000 / 1000 500 / 500 Balance -420 / -420 -100 / -100 Weight 58 kg Intake: IV 100 / 100 INVanz Inj 1,000 MG In NS Inj 100 / 100 100 ML @ 200 mls/hr IV.SIG Q24H [facility] Rx#:[id number] Oral 480 / 480 400 / 400 Output: Urine 500 / 500 Urine Amount (Catheter) 1000 / 1000 Indwelling Urethral Catheter 1000 / 1000 Other: Date of Last Bowel Movement 08/26/18 08/27/18 - Constitutional no acute distress - Routine HEENT Exam ENT: Present: mucous membranes moist - Routine Respiratory Exam Present: CTA bilaterally - Routine Cardiovascular Exam Present: S1, S2 - Routine Abdominal Exam Present: soft, normoactive bowel sounds - Routine Extremities Exam Present: amputation - Routine Skin Exam Present: dry, warm - Routine Neurological Exam Present: alert Results Procedures completed during hospitalization: N/A Labs on day of discharge: Labs from last 24 hours 08/27/18 08/26/18 08/26/18 07:54 22:23 16:27 POC Glucose 141 H 245 H 152 H 08/26/18 12:38 POC Glucose 224 H - Impressions ITS Impressions Cervical Spine CT 08/17/18 03:26 CONCLUSION: 1. No fracture. 2. Diffuse degenerative changes. Head CT 08/17/18 16:00 CONCLUSION: 1. Minimal bilateral subarachnoid hemorrhage. 2. No midline shift or mass effect. . Abdomen X-Ray 08/18/18 00:00 CONCLUSION: Negative KUB. No contraindication to an MRI examination is seen. Chest X-Ray 08/18/18 00:00 CONCLUSION: No acute cardiac bony process. No contraindication to an MRI examination is seen. Head MRI 08/18/18 07:09 CONCLUSION: 1. No acute intracranial abnormalities seen. 2. Periventricular demyelination. This is nonspecific. It could be from small vessel ischemic change. 3. Right periorbital and facial soft tissue swelling and hematoma. Head MRA 08/18/18 07:09 CONCLUSION: Negative MRA of the brain. Discharge Plan - Discharge Disposition Patient Disposition: Discharge to SNF - Discharge Condition Condition: Stable - Discharge Order Discharge Orders: Discharge Order (Routine); Ordered 08/19/18 Ordered By: Ial Baig - Physicians Team Primary Care Provider: Royer Cooper Attending Provider: Royer Cooper Other Providers: Harley Leung MD, PhD ; [facility],Agency ; [facility],Agency ; [facility],Agency ; Rehab,[facility] ; [facility], ; [facility],[place] ; [facility] ; [facility] [place] ; [facility]
--- NOTE | 2018-08-27 11:17 | CT ---
EXAM DATE: 08/27/2018 11:06 AM EST AGE/SEX: 68 years / Female INDICATIONS: follow up subarachnoid hemorrhage. CLINICAL DATA: This is the patient's subsequent encounter. Patient reports that signs and symptoms h ave been present for 2 weeks and indicates a pain score of 0/10. MEDICAL/SURGICAL HISTORY: Hypertension. Diabetes. Peripheral vascular disease. None. RADIATION DOSE: 56.77 CTDI (mGy) COMPARISON: [facility] [place], 08/17/2018. . TECHNIQUE: CT of the head without contrast. Using automated exposure control and adjustment of the mA and/or kV according to patient size, radiation dose was kept as low as reasonably achievable to ob tain optimal diagnostic quality images. DICOM format image data is available electronically for revi ew and comparison. FINDINGS: Cerebrum: Mild cortical hyperdensity remains evident along the frontal and parietal convexities. Per sistence since the initial presentation is more characteristic of mild parenchymal hemorrhage as oppo sed to subarachnoid hemorrhage. There is no evidence of focal edema, acute infarct or mass effect. Mild cerebral hypodensity is again noted. Posterior Fossa: The cerebellum and brainstem are intact. The 4th ventricle is midline. The cerebe llopontine angle is unremarkable. Extracranial: Right supraorbital and frontal cephalohematoma is significantly smaller Skull: The calvaria is intact. No evidence of skull fracture. CONCLUSION: 1. Stable evaluation without evidence of evolving infarct, edema or mass effect. 2. Persistent hyperdensity along the cortex likely representing minimal hemorrhage as described abov e. 3. Decreasing size of right frontal cephalhematoma. . Electronically signed by: Ap Brandon MD 08/27/2018 11:15 AM EST
[2018-08-27] MEDS: Insulin Detemir Inj 1,000 UNIT/10 ML Vial SQ SCH (20:28)
[2018-08-28] MEDS: Insulin NovoLOG Aspart Correctional Sugar Inj SQ SCH ×4 (08:14→22:10)
[2018-08-28] MEDS: amLODIPine 10 MG Tablet PO SCH (08:15)
[2018-08-28] MEDS: Carvedilol 12.5 MG Tablet PO SCH ×2 (08:15→22:09)
[2018-08-28] MEDS: Duloxetine 60 MG DR Capsule PO SCH (08:16)
[2018-08-28] MEDS: levETIRAcetam 500 MG Tablet PO SCH ×2 (08:16→22:09)
--- NOTE | 2018-08-28 10:44 | P.PNFP ---
Subjective Interval history: Resting comfortable Alert, non verbal Results - Labs Result diagrams: 08/22/18 08:30 08/25/18 08:52 Abnormal lab results 08/27/18 08/27/18 08/27/18 Range/Units 11:11 16:25 20:10 POC Glucose 213 H 277 H 402 H (68-110) mg/dl 08/27/18 08/28/18 Range/Units 21:54 07:41 POC Glucose 330 H 169 H (68-110) mg/dl - Imaging Impressions Head CT 08/27/18 00:00 CONCLUSION: 1. Stable evaluation without evidence of evolving infarct, edema or mass effect. 2. Persistent hyperdensity along the cortex likely representing minimal hemorrhage as described above. 3. Decreasing size of right frontal cephalhematoma. . Physical Exam Vital signs: Vital Signs 08/27/18 12:00 08/27/18 14:11 08/27/18 15:11 Temperature 98.0 F 97.3 F L 98.2 F Pulse Rate 74 76 73 Respiratory Rate 20 18 18 Blood Pressure 109/65 125/72 135/70 Pulse Oximetry 95 97 99 08/27/18 16:00 08/27/18 16:02 08/27/18 16:11 Temperature 97.3 F L 97.8 F Pulse Rate 76 76 80 Respiratory Rate 20 18 Blood Pressure 125/72 152/90 H Pulse Oximetry 97 97 08/27/18 17:11 08/27/18 20:00 08/27/18 21:11 Temperature 97.9 F 97.9 F 97.6 F Pulse Rate 81 86 82 Respiratory Rate 18 18 18 Blood Pressure 151/72 H 129/60 130/70 Pulse Oximetry 97 97 08/28/18 00:00 08/28/18 01:11 08/28/18 04:00 Temperature 97.8 F 97.2 F L 97.6 F Pulse Rate 71 80 80 Respiratory Rate 18 18 18 Blood Pressure 106/60 110/68 124/87 Pulse Oximetry 96 96 99 08/28/18 05:11 08/28/18 08:00 08/28/18 10:00 Temperature 97.2 F L 97.4 F L Pulse Rate 75 74 74 Respiratory Rate 17 18 Blood Pressure 125/85 115/60 Pulse Oximetry 97 99 Intake & Output 08/27/18 08/28/18 08/28/18 18:59 06:59 18:59 Intake Total 460 / 460 Output Total 550 / 550 1100 / 1100 Balance -550 / -550 -640 / -640 Weight 56.9 kg Intake: IV 100 / 100 INVanz Inj 1,000 MG In NS Inj 100 / 100 100 ML @ 200 mls/hr IV.SIG Q24H [facility] Rx#:[id number] Oral 360 / 360 Output: Urine 550 / 550 1100 / 1100 Other: Date of Last Bowel Movement 08/27/18 08/27/18 - Constitutional no acute distress - Routine HEENT Exam Eye: Present: PERRL ENT: Present: mucous membranes moist - Routine Respiratory Exam Present: CTA bilaterally - Routine Cardiovascular Exam Present: S1, S2 - Routine Abdominal Exam Present: soft, normoactive bowel sounds - Routine Extremities Exam Present: amputation - Routine Skin Exam Present: dry, warm - Routine Neurological Exam Present: alert - Urinary Catheter Management Indwelling Urethral Catheter Cath placed during this visit: yes Urethral indwelling: No Reason for continuing: Acute urinary retention Insertion date: 08/18/18 Insertion time: 20:30 Indwelling Temp Sensing Catheter Cath placed during this visit: yes, but has since been removed by the nurse Reason for continuing: Chronic Urinary Retention Removal date: 08/18/18 Removal time: 20:20 Assessment and Plan - Assessment (1) Subarachnoid bleed Code(s): I60.9 - Nontraumatic subarachnoid hemorrhage, unspecified Status: Acute Plan: Stable (2) UTI (urinary tract infection) Code(s): N39.0 - Urinary tract infection, site not specified Status: Acute Plan: Ertapenem iv x 7day (3) Seizure disorder Code(s): G40.909 - Epilepsy, unspecified, not intractable, without status epilepticus Status: Acute Plan: Cont home medications Keppra (4) PVD (peripheral vascular disease) Code(s): I73.9 - Peripheral vascular disease, unspecified Status: Acute Plan: ASA, Plavix on hold 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 - Assessment and Plan 08/18/18- Seen earlier this am, family at bedside. Daughter upset with mothers condition. Patient essentially non verbal, has nonsensical conversations. Appears comfortable. She was seen by neuro yesterday, MRI.MRA ordered and completed. Neuro recommends repeat CT in 1 week. restarting asa and Plavix appreciated. She is positive for UTI, > 100,000 Gram - rods, sensitivity pending. Family wishes not to return to previous facility, they will tour facilities today. DC when cleared by neuro and arrangement's made. 08/20/18- Uneventful night reported, Vss Afebrile. Dc when bad available 08/21/18- No apparent distress, Vss afebrile. She is on isolation for ESBL, on IV Rocephin and Macrobid. Dc once arrangements made. 08/25/18- Sleepy this am, arousalable will follow simile commands. She has low BS this am 45, hypoglycemia protocol. MITTAL adjusted. Will cont to monitor. CM cont to work on placement. 08/26/18/ Seen this am, she is found in bed, appears comfortable. Schilling to bedside, urine clear. She is getting Iv ertapenem for ESBL. Will repeats CT of head per neurology Rec's, restart ASA, plavix per neuro. Case management working on placement. Difficult placement. 08/28/18- Resting comfortable, per CM notes will need to complete Iv antibiotics before SNF will accept. . Appreciate neuro rec's on restarting asa, plavix. Vss afebrile. Dc when arrangements made Progress Note: Quality - AMI Clinical Trial Participant: No
[2018-08-28] MEDS: LORazepam 0.5 MG Tablet PO PRN (15:57)
[2018-08-28] MEDS: Insulin Detemir Inj 1,000 UNIT/10 ML Vial SQ SCH (22:10)
[2018-08-29] MEDS: Insulin NovoLOG Aspart Correctional Sugar Inj SQ SCH ×4 (09:09→21:36)
[2018-08-29] MEDS: levETIRAcetam 500 MG Tablet PO SCH ×2 (09:10→21:36)
[2018-08-29] MEDS: Duloxetine 60 MG DR Capsule PO SCH (09:10)
[2018-08-29 09:11] LABS: Hematocrit 32.9 % (35.0-46.0); Hemoglobin 11.3 gm/dL (11.6-15.3); Mean Corpuscular HGB Conc 34.2 % (32.0-36.0); Mean Corpuscular Hemoglobin 30.8 pg (27.0-34.0); Mean Corpuscular Volume 89.8 fL (80.0-100.0); Mean Platelet Volume 9.2 fL (7.0-11.0); Platelet Count 166 th/mm3 (150-450); Red Blood Count 3.66 mil/mm3 (4.00-5.30); Red Cell Distribution Width 14.9 % (11.6-17.2); White Blood Count 5.2 th/mm3 (4.0-11.0)
[2018-08-29] MEDS: Carvedilol 12.5 MG Tablet PO SCH ×2 (09:11→21:36)
[2018-08-29] MEDS: amLODIPine 10 MG Tablet PO SCH (09:11)
[2018-08-29 09:43] LABS: Carbon Dioxide 26.6 meq/L (21.0-32.0); Potassium 4.3 meq/L (3.5-5.1)
--- NOTE | 2018-08-29 12:59 | P.PNFP ---
Subjective Interval history: She is awake and in NAD. Hopefully back to [facility] Friday per CM. Results - Labs Result diagrams: 08/29/18 08:15 08/29/18 08:15 Abnormal lab results 08/28/18 08/28/18 08/29/18 Range/Units 15:57 22:08 07:22 RBC (4.00-5.30) mil/mm3 Hgb (11.6-15.3) gm/dL Hct (35.0-46.0) % BUN (7-18) mg/dL Estimated GFR (>89) mL/min POC Glucose 274 H 123 H 178 H (68-110) mg/dl Random Glucose (74-106) mg/dL 08/29/18 08/29/18 08/29/18 Range/Units 08:15 08:15 11:52 RBC 3.66 L (4.00-5.30) mil/mm3 Hgb 11.3 L (11.6-15.3) gm/dL Hct 32.9 L (35.0-46.0) % BUN 21 H (7-18) mg/dL Estimated GFR 70 L (>89) mL/min POC Glucose 175 H (68-110) mg/dl Random Glucose 155 H (74-106) mg/dL Short CBC 08/29/18 Range/Units 08:15 WBC 5.2 (4.0-11.0) th/mm3 Hgb 11.3 L (11.6-15.3) gm/dL Hct 32.9 L (35.0-46.0) % Plt Count 166 (150-450) th/mm3 [facility] 08/29/18 08:15 Sodium 139 Potassium 4.3 Chloride 105 Carbon Dioxide 26.6 BUN 21 H Creatinine 0.96 Calcium 9.0 Physical Exam Vital signs: Vital Signs 08/28/18 13:11 08/28/18 16:00 08/28/18 17:11 Temperature 97.9 F 97.6 F 97.6 F Pulse Rate 77 77 77 Respiratory Rate 18 20 20 Blood Pressure 123/57 L 119/56 L 119/56 L Pulse Oximetry 98 97 99 08/28/18 20:00 08/29/18 00:00 08/29/18 04:00 Temperature 98.3 F 98.4 F 97.8 F Pulse Rate 77 77 74 Respiratory Rate 20 20 20 Blood Pressure 120/68 141/95 H 112/65 Pulse Oximetry 98 96 99 08/29/18 07:35 08/29/18 10:00 08/29/18 11:35 Temperature 97.7 F 97.5 F L Pulse Rate 75 67 74 Respiratory Rate 18 17 Blood Pressure 108/62 118/62 Pulse Oximetry 98 99 Intake & Output 08/28/18 08/29/18 08/29/18 18:59 06:59 18:59 Intake Total 1180 / 1180 Output Total 1400 / 1400 600 / 600 Balance -220 / -220 -600 / -600 Weight 91.8 kg Intake: IV 100 / 100 INVanz Inj 1,000 MG In NS Inj 100 / 100 100 ML @ 200 mls/hr IV.SIG Q24H [facility] Rx#:[id number] Oral 1080 / 1080 Output: Urine 400 / 400 600 / 600 Urine Amount (Catheter) 1000 / 1000 Indwelling Urethral Catheter 1000 / 1000 Other: Date of Last Bowel Movement 08/28/18 08/28/18 08/29/18 # Incontinent Bowel Movements 2 - Constitutional no acute distress - Routine HEENT Exam Head: Present: normocephalic ENT: Present: mucous membranes moist - Routine Neck Exam Present: supple - Routine Respiratory Exam Present: CTA bilaterally - Routine Cardiovascular Exam Present: RRR - Routine Abdominal Exam Present: soft - Routine Skin Exam Present: intact - Routine Neurological Exam Present: alert - Routine Psychiatric Exam Present: unable to assess - Urinary Catheter Management Indwelling Urethral Catheter Cath placed during this visit: yes Urethral indwelling: No Reason for continuing: Acute urinary retention Insertion date: 08/18/18 Insertion time: 20:30 Indwelling Temp Sensing Catheter Cath placed during this visit: yes, but has since been removed by the nurse Reason for continuing: Chronic Urinary Retention Removal date: 08/18/18 Removal time: 20:20 Assessment and Plan - Assessment (1) Subarachnoid bleed Code(s): I60.9 - Nontraumatic subarachnoid hemorrhage, unspecified Status: Acute Plan: Stable (2) UTI (urinary tract infection) Code(s): N39.0 - Urinary tract infection, site not specified Status: Acute Plan: Ertapenem iv x 7day (3) Seizure disorder Code(s): G40.909 - Epilepsy, unspecified, not intractable, without status epilepticus Status: Acute Plan: Cont home medications Asarobin (4) PVD (peripheral vascular disease) Code(s): I73.9 - Peripheral vascular disease, unspecified Status: Acute Plan: ASA, Plavix on hold 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 - Assessment and Plan 08/18/18- Seen earlier this am, family at bedside. Daughter upset with mothers condition. Patient essentially non verbal, has nonsensical conversations. Appears comfortable. She was seen by neuro yesterday, MRI.MRA ordered and completed. Neuro recommends repeat CT in 1 week. restarting asa and Plavix appreciated. She is positive for UTI, > 100,000 Gram - rods, sensitivity pending. Family wishes not to return to previous facility, they will tour facilities today. DC when cleared by neuro and arrangement's made. 08/20/18- Uneventful night reported, Vss Afebrile. Dc when bad available 08/21/18- No apparent distress, Vss afebrile. She is on isolation for ESBL, on IV Rocephin and Macrobid. Dc once arrangements made. 08/25/18- Sleepy this am, arousalable will follow simile commands. She has low BS this am 45, hypoglycemia protocol. MITTAL adjusted. Will cont to monitor. CM cont to work on placement. 08/26/18/ Seen this am, she is found in bed, appears comfortable. Schilling to bedside, urine clear. She is getting Iv ertapenem for ESBL. Will repeats CT of head per neurology Rec's, restart ASA, plavix per neuro. Case management working on placement. Difficult placement. 08/28/18- Resting comfortable, per CM notes will need to complete Iv antibiotics before SNF will accept. . Appreciate neuro rec's on restarting asa, plavix. Vss afebrile. Dc when arrangements made 08/29/18 - Neuro following and she remains on IV antibiotics which prevents return to her SNF, per CM, at this time. Will cont to monitor and cont current plan until D/C, hopefully on Friday. Discharge Planning: SNF Progress Note: Quality - AMI Clinical Trial Participant: No (7) Diabetes Qualifiers: Diabetes mellitus type: type 2
[2018-08-29] MEDS: Insulin Detemir Inj 1,000 UNIT/10 ML Vial SQ SCH (21:36)
[2018-08-30] MEDS: Insulin NovoLOG Aspart Correctional Sugar Inj SQ SCH ×4 (09:08→21:02)
[2018-08-30] MEDS: levETIRAcetam 500 MG Tablet PO SCH ×2 (10:37→20:47)
[2018-08-30] MEDS: amLODIPine 10 MG Tablet PO SCH (10:37)
[2018-08-30] MEDS: Carvedilol 12.5 MG Tablet PO SCH ×2 (10:38→21:02)
[2018-08-30] MEDS: Duloxetine 60 MG DR Capsule PO SCH (10:38)
--- NOTE | 2018-08-30 11:29 | P.PNFP ---
Subjective Interval history: She is nonverbal but appears comfortable. Results - Labs Result diagrams: 08/29/18 08:15 08/29/18 08:15 Abnormal lab results 08/29/18 08/29/18 08/29/18 Range/Units 11:52 16:29 20:36 POC Glucose 175 H 181 H 297 H (68-110) mg/dl 08/30/18 Range/Units 09:03 POC Glucose 128 H (68-110) mg/dl Physical Exam Vital signs: Vital Signs 08/29/18 11:35 08/29/18 15:06 08/29/18 20:00 Temperature 97.5 F L 97.1 F L 97.9 F Pulse Rate 74 70 76 Respiratory Rate 17 18 18 Blood Pressure 118/62 132/75 115/57 L Pulse Oximetry 99 98 95 08/30/18 00:00 08/30/18 04:00 08/30/18 07:31 Temperature 97.8 F 98 F 98.3 F Pulse Rate 68 71 69 Respiratory Rate 18 18 18 Blood Pressure 110/68 123/66 112/57 L Pulse Oximetry 96 96 97 08/30/18 11:13 Temperature Pulse Rate 67 Respiratory Rate Blood Pressure Pulse Oximetry Intake & Output 08/29/18 08/30/18 08/30/18 18:59 06:59 18:59 Intake Total 720 / 720 Output Total 700 / 700 800 / 800 Balance -800 / -800 Weight 91.8 kg Intake: Oral 720 / 720 Output: Urine 800 / 800 Urine Amount (Catheter) 700 / 700 Indwelling Urethral Catheter 700 / 700 Other: # Voids 1 Date of Last Bowel Movement 08/29/18 08/29/18 08/29/18 # Incontinent Bowel Movements 1 - Constitutional no acute distress - Routine HEENT Exam Head: Present: normocephalic Eye: Present: PERRL ENT: Present: mucous membranes moist - Routine Neck Exam Present: supple - Routine Respiratory Exam Present: CTA bilaterally - Routine Cardiovascular Exam Present: RRR - Routine Abdominal Exam Present: soft - Routine Extremities Exam Present: full ROM - Routine Skin Exam Present: intact - Routine Neurological Exam Present: alert expressive aphasia - Detailed Neurological Exam: Coma Scale Eye Opening: Spontaneous - Routine Psychiatric Exam Present: unable to assess - Urinary Catheter Management Indwelling Urethral Catheter Cath placed during this visit: yes Urethral indwelling: No Reason for continuing: Acute urinary retention Insertion date: 08/18/18 Insertion time: 20:30 Indwelling Temp Sensing Catheter Cath placed during this visit: yes, but has since been removed by the nurse Reason for continuing: Chronic Urinary Retention Removal date: 08/18/18 Removal time: 20:20 Assessment and Plan - Assessment (1) Subarachnoid bleed Code(s): I60.9 - Nontraumatic subarachnoid hemorrhage, unspecified Status: Acute Plan: Stable (2) UTI (urinary tract infection) Code(s): N39.0 - Urinary tract infection, site not specified Status: Acute Plan: Ertapenem iv x 7day. For D/C back to SNF when IV antibiotics finished. She is afebrile. (3) Seizure disorder Code(s): G40.909 - Epilepsy, unspecified, not intractable, without status epilepticus Status: Acute Plan: Cont home medications Keppra. No seizures reported this adm. 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 Controlled on home meds. (6) Dementia Code(s): F03.90 - Unspecified dementia without behavioral disturbance Status: Acute Plan: Mood appears stable, baseline unknown, (7) Diabetes Code(s): E11.9 - Type 2 diabetes mellitus without complications Status: Acute Plan: Monitor BS, AC/HS s/c coverage MITTAL, monitor close, MITTAL decreased. - Assessment and Plan 08/18/18- Seen earlier this am, family at bedside. Daughter upset with mothers condition. Patient essentially non verbal, has nonsensical conversations. Appears comfortable. She was seen by neuro yesterday, MRI.MRA ordered and completed. Neuro recommends repeat CT in 1 week. restarting asa and Plavix appreciated. She is positive for UTI, > 100,000 Gram - rods, sensitivity pending. Family wishes not to return to previous facility, they will tour facilities today. DC when cleared by neuro and arrangement's made. 08/20/18- Uneventful night reported, Vss Afebrile. Dc when bad available 08/21/18- No apparent distress, Vss afebrile. She is on isolation for ESBL, on IV Rocephin and Macrobid. Dc once arrangements made. 08/25/18- Sleepy this am, arousalable will follow simile commands. She has low BS this am 45, hypoglycemia protocol. MITTAL adjusted. Will cont to monitor. CM cont to work on placement. 08/26/18/ Seen this am, she is found in bed, appears comfortable. Schilling to bedside, urine clear. She is getting Iv ertapenem for ESBL. Will repeats CT of head per neurology Rec's, restart ASA, plavix per neuro. Case management working on placement. Difficult placement. 08/28/18- Resting comfortable, per CM notes will need to complete Iv antibiotics before SNF will accept. . Appreciate neuro rec's on restarting asa, plavix. Vss afebrile. Dc when arrangements made 08/29/18 - Neuro following and she remains on IV antibiotics which prevents return to her SNF, per CM, at this time. Will cont to monitor and cont current plan until D/C, hopefully on Friday. 08/30/18 - For return to SNF when IV antibiotics finished. Signed [id number] is on her chart. She is afebrile and her VS are stable. Discharge Planning: SNF Progress Note: Quality - AMI Clinical Trial Participant: No (7) Diabetes Qualifiers: Diabetes mellitus type: type 2
[2018-08-30] MEDS: Insulin Detemir Inj 1,000 UNIT/10 ML Vial SQ SCH (21:01)
[2018-08-31] MEDS: Carvedilol 12.5 MG Tablet PO SCH ×2 (08:21→20:36)
[2018-08-31] MEDS: Duloxetine 60 MG DR Capsule PO SCH (08:21)
[2018-08-31] MEDS: levETIRAcetam 500 MG Tablet PO SCH ×2 (08:21→20:59)
[2018-08-31] MEDS: Insulin NovoLOG Aspart Correctional Sugar Inj SQ SCH ×4 (08:22→21:02)
[2018-08-31] MEDS: amLODIPine 10 MG Tablet PO SCH (08:25)
[2018-08-31 08:45] LABS: Baso % (Auto) 0.7 % (0.0-2.0); Eos # (Auto) 0.2 th/mm3 (0.0-0.4); Eos % (Auto) 3.8 % (0.0-4.0); Hematocrit 35.2 % (35.0-46.0); Hemoglobin 11.4 gm/dL (11.6-15.3); Lymph # (Auto) 2.1 th/mm3 (1.0-4.8); Lymph % (Auto) 35.7 % (9.0-44.0); Mean Corpuscular HGB Conc 32.5 % (32.0-36.0); Mean Corpuscular Hemoglobin 30.2 pg (27.0-34.0); Mean Corpuscular Volume 92.8 fL (80.0-100.0); Mean Platelet Volume 9.6 fL (7.0-11.0); Mono # (Auto) 0.6 th/mm3 (0.0-0.9); Mono % (Auto) 9.5 % (0.0-8.0); Neut % (Auto) 50.3 % (16.0-70.0); Platelet Count 163 th/mm3 (150-450); Red Blood Count 3.79 mil/mm3 (4.00-5.30); Red Cell Distribution Width 14.7 % (11.6-17.2)
[2018-08-31 09:14] LABS: Alanine Aminotransferase 19 U/L (10-53); Albumin 2.9 g/dL (3.4-5.0); Anion Gap 7 meq/L (5-15); Aspartate Aminotransferase 23 U/L (15-37); Blood Urea Nitrogen 36 mg/dL (7-18); Calcium 9.2 mg/dL (8.5-10.1); Carbon Dioxide 26.5 meq/L (21.0-32.0); Chloride 106 meq/L (98-107); Glomerular Filtration Rate 52 mL/min (>89); Glucose,Random 220 mg/dL (74-106); Potassium 4.5 meq/L (3.5-5.1); Sodium 139 meq/L (136-145)
[2018-08-31 09:16] LABS: Alkaline Phosphatase 98 U/L (45-117); Total Protein 7.4 g/dL (6.4-8.2)
--- NOTE | 2018-08-31 17:07 | P.PNFP ---
Subjective Interval history: Delayed entry, seen this am No apparent distress, Resting comfortable Confused Results - Labs Result diagrams: 08/31/18 07:18 08/31/18 07:18 Abnormal lab results 08/30/18 08/31/18 08/31/18 Range/Units 20:52 07:18 07:18 RBC 3.79 L (4.00-5.30) mil/mm3 Hgb 11.4 L (11.6-15.3) gm/dL Harper % (Auto) 9.5 H (0.0-8.0) % BUN 36 H (7-18) mg/dL Creatinine 1.24 H (0.50-1.00) mg/dL Estimated GFR 52 L (>89) mL/min POC Glucose 272 H (68-110) mg/dl Random Glucose 220 H (74-106) mg/dL Albumin 2.9 L (3.4-5.0) g/dL 08/31/18 08/31/18 08/31/18 Range/Units 07:25 11:36 16:55 RBC (4.00-5.30) mil/mm3 Hgb (11.6-15.3) gm/dL Harper % (Auto) (0.0-8.0) % BUN (7-18) mg/dL Creatinine (0.50-1.00) mg/dL Estimated GFR (>89) mL/min POC Glucose 258 H 251 H 184 H (68-110) mg/dl Random Glucose (74-106) mg/dL Albumin (3.4-5.0) g/dL Short CBC 08/31/18 Range/Units 07:18 WBC 6.0 (4.0-11.0) th/mm3 Hgb 11.4 L (11.6-15.3) gm/dL Hct 35.2 (35.0-46.0) % Plt Count 163 (150-450) th/mm3 BMP 08/31/18 07:18 Sodium 139 Potassium 4.5 Chloride 106 Carbon Dioxide 26.5 BUN 36 H Creatinine 1.24 H Calcium 9.2 Liver Function 08/31/18 Range/Units 07:18 Total Bilirubin 0.3 (0.2-1.0) mg/dL AST 23 (15-37) U/L ALT 19 (10-53) U/L Alkaline Phosphatase 98 (45-117) U/L Albumin 2.9 L (3.4-5.0) g/dL Physical Exam Vital signs: Vital Signs 08/30/18 20:00 08/30/18 20:05 08/30/18 23:55 Temperature 98.9 F Pulse Rate 84 83 76 Respiratory Rate 18 Blood Pressure 103/53 L Pulse Oximetry 98 08/31/18 00:00 08/31/18 03:30 08/31/18 04:00 Temperature 98.2 F 97.9 F 98.3 F Pulse Rate 80 68 78 Respiratory Rate 18 20 18 Blood Pressure 107/61 111/58 L 116/63 Pulse Oximetry 96 97 96 08/31/18 08:00 08/31/18 09:00 08/31/18 12:00 Temperature 98.2 F 98.0 F Pulse Rate 82 73 67 Respiratory Rate 20 20 Blood Pressure 107/55 L 112/58 L Pulse Oximetry 94 L 100 08/31/18 14:54 08/31/18 16:38 Temperature Pulse Rate 65 68 Respiratory Rate Blood Pressure Pulse Oximetry Intake & Output 08/30/18 08/31/18 08/31/18 18:59 06:59 18:59 Intake Total 960 / 960 360 / 360 Output Total 500 / 500 150 / 150 Balance 460 / 460 210 / 210 Intake: Oral 960 / 960 360 / 360 Output: Urine 500 / 500 150 / 150 Other: # Voids 1 Date of Last Bowel Movement 08/30/18 08/30/18 08/31/18 # Incontinent Bowel Movements 1 1 - Constitutional no acute distress - Routine HEENT Exam Eye: Present: PERRL ENT: Present: mucous membranes moist - Routine Respiratory Exam Present: CTA bilaterally - Routine Cardiovascular Exam Present: S1, S2 - Routine Abdominal Exam Present: soft, normoactive bowel sounds - Routine Extremities Exam Present: amputation - Routine Skin Exam Present: dry, warm - Routine Neurological Exam Present: alert - Urinary Catheter Management Indwelling Urethral Catheter Cath placed during this visit: yes Urethral indwelling: No Reason for continuing: Chronic Urinary Retention Insertion date: 08/18/18 Insertion time: 20:30 Indwelling Temp Sensing Catheter Cath placed during this visit: yes, but has since been removed by the nurse Reason for continuing: Chronic Urinary Retention Removal date: 08/18/18 Removal time: 20:20 Assessment and Plan - Assessment (1) Subarachnoid bleed Code(s): I60.9 - Nontraumatic subarachnoid hemorrhage, unspecified Status: Acute Plan: Stable (2) UTI (urinary tract infection) Code(s): N39.0 - Urinary tract infection, site not specified Status: Acute Plan: Ertapenem iv x 7day. For D/C back to SNF when IV antibiotics finished. She is afebrile. (3) Seizure disorder Code(s): G40.909 - Epilepsy, unspecified, not intractable, without status epilepticus Status: Acute Plan: Cont home medications Keppra. No seizures reported this adm. 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 Controlled on home meds. (6) Dementia Code(s): F03.90 - Unspecified dementia without behavioral disturbance Status: Acute Plan: Mood appears stable, baseline unknown, (7) Diabetes Code(s): E11.9 - Type 2 diabetes mellitus without complications Status: Acute Plan: Monitor BS, AC/HS s/c coverage MITTAL, monitor close, MITTAL decreased. - Assessment and Plan 08/18/18- Seen earlier this am, family at bedside. Daughter upset with mothers condition. Patient essentially non verbal, has nonsensical conversations. Appears comfortable. She was seen by neuro yesterday, MRI.MRA ordered and completed. Neuro recommends repeat CT in 1 week. restarting asa and Plavix appreciated. She is positive for UTI, > 100,000 Gram - rods, sensitivity pending. Family wishes not to return to previous facility, they will tour facilities today. DC when cleared by neuro and arrangement's made. 08/20/18- Uneventful night reported, Vss Afebrile. Dc when bad available 08/21/18- No apparent distress, Vss afebrile. She is on isolation for ESBL, on IV Rocephin and Macrobid. Dc once arrangements made. 08/25/18- Sleepy this am, arousalable will follow simile commands. She has low BS this am 45, hypoglycemia protocol. MITTAL adjusted. Will cont to monitor. CM cont to work on placement. 08/26/18/ Seen this am, she is found in bed, appears comfortable. Schilling to bedside, urine clear. She is getting Iv ertapenem for ESBL. Will repeats CT of head per neurology Rec's, restart ASA, plavix per neuro. Case management working on placement. Difficult placement. 08/28/18- Resting comfortable, per CM notes will need to complete Iv antibiotics before SNF will accept. . Appreciate neuro rec's on restarting asa, plavix. Vss afebrile. Dc when arrangements made 08/29/18 - Neuro following and she remains on IV antibiotics which prevents return to her SNF, per CM, at this time. Will cont to monitor and cont current plan until D/C, hopefully on Friday. 08/30/18 - For return to SNF when IV antibiotics finished. Signed [id number] is on her chart. She is afebrile and her VS are stable. 08/31/18- Vss afebrile, completed antibiotics, B/P controlled, BS slightly elevated will increase MITTAL, cont to monitor awaiting placement. Progress Note: Quality - AMI Clinical Trial Participant: No (7) Diabetes Qualifiers: Diabetes mellitus type: type 2
[2018-08-31] MEDS: Insulin Detemir Inj 1,000 UNIT/10 ML Vial SQ SCH (21:00)
[2018-09-01] MEDS: levETIRAcetam 500 MG Tablet PO SCH ×2 (08:01→23:02)
[2018-09-01] MEDS: Carvedilol 12.5 MG Tablet PO SCH ×2 (08:01→23:02)
[2018-09-01] MEDS: Duloxetine 60 MG DR Capsule PO SCH (08:01)
[2018-09-01] MEDS: amLODIPine 10 MG Tablet PO SCH (08:01)
[2018-09-01] MEDS: Insulin NovoLOG Aspart Correctional Sugar Inj SQ SCH ×4 (08:02→23:03)
--- NOTE | 2018-09-01 09:06 | P.PNFP ---
Subjective Interval history: Awake alert this am She appears comfortable Miguel pain, sob oriented to self awaiting placement Results - Labs Result diagrams: 08/31/18 07:18 08/31/18 07:18 Abnormal lab results 08/31/18 08/31/18 08/31/18 Range/Units 07:18 11:36 16:55 BUN 36 H (7-18) mg/dL Creatinine 1.24 H (0.50-1.00) mg/dL Estimated GFR 52 L (>89) mL/min POC Glucose 251 H 184 H (68-110) mg/dl Random Glucose 220 H (74-106) mg/dL Albumin 2.9 L (3.4-5.0) g/dL 08/31/18 09/01/18 Range/Units 20:38 07:50 BUN (7-18) mg/dL Creatinine (0.50-1.00) mg/dL Estimated GFR (>89) mL/min POC Glucose 221 H 202 H (68-110) mg/dl Random Glucose (74-106) mg/dL Albumin (3.4-5.0) g/dL BMP 08/31/18 07:18 Sodium 139 Potassium 4.5 Chloride 106 Carbon Dioxide 26.5 BUN 36 H Creatinine 1.24 H Calcium 9.2 Liver Function 08/31/18 Range/Units 07:18 Total Bilirubin 0.3 (0.2-1.0) mg/dL AST 23 (15-37) U/L ALT 19 (10-53) U/L Alkaline Phosphatase 98 (45-117) U/L Albumin 2.9 L (3.4-5.0) g/dL Physical Exam Vital signs: Vital Signs 08/31/18 09:00 08/31/18 12:00 08/31/18 14:54 Temperature 98.0 F Pulse Rate 73 67 65 Respiratory Rate 20 Blood Pressure 112/58 L Pulse Oximetry 100 08/31/18 16:38 08/31/18 20:00 09/01/18 00:00 Temperature 98.2 F 98.1 F Pulse Rate 68 72 68 Respiratory Rate 20 20 Blood Pressure 105/59 L 109/60 Pulse Oximetry 98 97 09/01/18 00:30 09/01/18 03:17 09/01/18 04:30 Temperature Pulse Rate 64 72 Respiratory Rate 16 Blood Pressure Pulse Oximetry 09/01/18 07:10 Temperature 97.9 F Pulse Rate 73 Respiratory Rate 13 Blood Pressure 126/66 Pulse Oximetry 96 Intake & Output 08/31/18 09/01/18 09/01/18 18:59 06:59 18:59 Intake Total 360 / 360 Output Total 600 / 600 850 / 850 Balance -240 / -240 -850 / -850 Weight 55.5 kg Intake: Oral 360 / 360 Output: Urine 150 / 150 850 / 850 Urine Amount (Catheter) 450 / 450 Indwelling Urethral Catheter 450 / 450 Other: # Voids 1 Date of Last Bowel Movement 08/31/18 08/31/18 # Incontinent Bowel Movements 1 - Constitutional no acute distress - Routine HEENT Exam Eye: Present: PERRL ENT: Present: mucous membranes moist - Routine Neck Exam Present: supple - Routine Respiratory Exam Present: CTA bilaterally - Routine Cardiovascular Exam Present: S1, S2 - Routine Abdominal Exam Present: soft, normoactive bowel sounds - Routine Extremities Exam Present: amputation - Routine Skin Exam Present: intact - Routine Neurological Exam Present: alert - Routine Psychiatric Exam Present: cooperative - Urinary Catheter Management Indwelling Urethral Catheter Cath placed during this visit: yes Urethral indwelling: No Reason for continuing: Chronic Urinary Retention Insertion date: 08/18/18 Insertion time: 20:30 Indwelling Temp Sensing Catheter Cath placed during this visit: yes, but has since been removed by the nurse Reason for continuing: Chronic Urinary Retention Removal date: 08/18/18 Removal time: 20:20 Assessment and Plan - Assessment (1) Subarachnoid bleed Code(s): I60.9 - Nontraumatic subarachnoid hemorrhage, unspecified Status: Acute Plan: Stable (2) UTI (urinary tract infection) Code(s): N39.0 - Urinary tract infection, site not specified Status: Acute Plan: resolved (3) Seizure disorder Code(s): G40.909 - Epilepsy, unspecified, not intractable, without status epilepticus Status: Acute Plan: Cont home medications Keppra. No seizures reported this adm. 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 Controlled on home meds. (6) Dementia Code(s): F03.90 - Unspecified dementia without behavioral disturbance Status: Acute Plan: Mood appears stable, baseline unknown, (7) Diabetes Code(s): E11.9 - Type 2 diabetes mellitus without complications Status: Acute Plan: Monitor BS, AC/HS s/c coverage MITTAL, monitor close, MITTAL decreased. - Assessment and Plan 08/18/18- Seen earlier this am, family at bedside. Daughter upset with mothers condition. Patient essentially non verbal, has nonsensical conversations. Appears comfortable. She was seen by neuro yesterday, MRI.MRA ordered and completed. Neuro recommends repeat CT in 1 week. restarting asa and Plavix appreciated. She is positive for UTI, > 100,000 Gram - rods, sensitivity pending. Family wishes not to return to previous facility, they will tour facilities today. DC when cleared by neuro and arrangement's made. 08/20/18- Uneventful night reported, Vss Afebrile. Dc when bad available 08/21/18- No apparent distress, Vss afebrile. She is on isolation for ESBL, on IV Rocephin and Macrobid. Dc once arrangements made. 08/25/18- Sleepy this am, arousalable will follow simile commands. She has low BS this am 45, hypoglycemia protocol. MITTAL adjusted. Will cont to monitor. CM cont to work on placement. 08/26/18/ Seen this am, she is found in bed, appears comfortable. Schilling to bedside, urine clear. She is getting Iv ertapenem for ESBL. Will repeats CT of head per neurology Rec's, restart ASA, plavix per neuro. Case management working on placement. Difficult placement. 08/28/18- Resting comfortable, per CM notes will need to complete Iv antibiotics before SNF will accept. . Appreciate neuro rec's on restarting asa, plavix. Vss afebrile. Dc when arrangements made 08/29/18 - Neuro following and she remains on IV antibiotics which prevents return to her SNF, per CM, at this time. Will cont to monitor and cont current plan until D/C, hopefully on Friday. 08/30/18 - For return to SNF when IV antibiotics finished. Signed 3008 is on her chart. She is afebrile and her VS are stable. 08/31/18- Vss afebrile, completed antibiotics, B/P controlled, BS slightly elevated will increase MITTAL, cont to monitor awaiting placement. 09/01/18 VSS afebrile. She has completed antibiotics for uti, labs today show increase creatinine, likely related to poor po intake. Po fluid encouraged. Will give some fluid prior to dc. Patient is bedbound, has left amputation. BS have been in 200's, she is on MITTAL 7u, @ hs this was decreased from 10, r/t low BS. DC to snf when arrangements made. 3008 on chart script for Ativan provided Progress Note: Quality - AMI Clinical Trial Participant: No (7) Diabetes Qualifiers: Diabetes mellitus type: type 2
[2018-09-01] MEDS: Sod Chloride 0.9% Inj 1,000 ML IV.CONT SCH ×3 (12:24→23:05)
[2018-09-01] MEDS: Insulin Detemir Inj 1,000 UNIT/10 ML Vial SQ SCH (23:03)
[2018-09-02 07:38] LABS: Calcium 8.6 mg/dL (8.5-10.1); Carbon Dioxide 24.9 meq/L (21.0-32.0); Potassium 4.3 meq/L (3.5-5.1)
[2018-09-02] MEDS: Carvedilol 12.5 MG Tablet PO SCH ×2 (08:47→21:56)
[2018-09-02] MEDS: Duloxetine 60 MG DR Capsule PO SCH (08:47)
[2018-09-02] MEDS: levETIRAcetam 500 MG Tablet PO SCH ×2 (08:47→21:56)
[2018-09-02] MEDS: amLODIPine 10 MG Tablet PO SCH (08:47)
[2018-09-02] MEDS: Insulin NovoLOG Aspart Correctional Sugar Inj SQ SCH ×4 (08:47→21:56)
--- NOTE | 2018-09-02 09:47 | P.PNFP ---
Subjective Interval history: Seen this am resting in bed, appears comfortable She is alert, follows some commands oriented x1 Awaiting placement Results - Labs Result diagrams: 08/31/18 07:18 09/02/18 06:11 Abnormal lab results 08/29/18 09/01/18 09/01/18 Range/Units 08:15 12:12 16:11 BUN (7-18) mg/dL Estimated GFR (>89) mL/min POC Glucose 309 H 266 H (68-110) mg/dl Random Glucose (74-106) mg/dL Levetiracetam 65.2 H (12.0 - 46.0) mcg/mL 09/01/18 09/02/18 09/02/18 Range/Units 20:17 06:11 07:47 BUN 21 H (7-18) mg/dL Estimated GFR 78 L (>89) mL/min POC Glucose 163 H 211 H (68-110) mg/dl Random Glucose 209 H (74-106) mg/dL Levetiracetam (12.0 - 46.0) mcg/mL [facility] 09/02/18 06:11 Sodium 140 Potassium 4.3 Chloride 107 Carbon Dioxide 24.9 BUN 21 H Creatinine 0.87 Calcium 8.6 Physical Exam Vital signs: Vital Signs 09/01/18 12:00 09/01/18 16:40 09/01/18 17:41 Temperature 97.6 F 97.8 F Pulse Rate 70 73 69 Respiratory Rate 16 20 Blood Pressure 132/64 122/64 Pulse Oximetry 97 99 09/01/18 20:00 09/02/18 00:00 09/02/18 04:00 Temperature 97.5 F L 98.1 F 98 F Pulse Rate 75 75 70 Respiratory Rate 18 18 20 Blood Pressure 122/67 125/63 121/63 Pulse Oximetry 99 98 99 09/02/18 04:09 09/02/18 07:40 Temperature 97.9 F Pulse Rate 71 Respiratory Rate 16 16 Blood Pressure 147/67 H Pulse Oximetry 100 Intake & Output 09/01/18 09/02/18 09/02/18 18:59 06:59 18:59 Intake Total 1000 / 1000 1000 / 1000 Output Total 500 / 500 1200 / 1200 Balance -500 / -500 -200 / -200 1000 / 1000 Weight 62.9 kg Intake: IV 1000 / 1000 1000 / 1000 NS Inj 1,000 ML @ 125 mls/hr IV 1000 / 1000 1000 / 1000 .CONT .Q8H NOLBERTO Rx#:[id number] Output: Urine 500 / 500 1200 / 1200 Other: # Voids 1 Date of Last Bowel Movement 09/01/18 09/01/18 09/02/18 # Bowel Movements 1 1 - Constitutional no acute distress - Routine HEENT Exam ENT: Present: mucous membranes moist - Routine Neck Exam Present: supple - Routine Respiratory Exam Present: CTA bilaterally - Routine Cardiovascular Exam Present: S1, S2 - Routine Abdominal Exam Present: soft, normoactive bowel sounds - Routine Extremities Exam Present: amputation - Routine Skin Exam Present: dry, warm - Routine Neurological Exam Present: alert - Routine Psychiatric Exam Present: cooperative - Urinary Catheter Management Indwelling Urethral Catheter Cath placed during this visit: yes Urethral indwelling: No Reason for continuing: Chronic Urinary Retention Insertion date: 08/18/18 Insertion time: 20:30 Indwelling Temp Sensing Catheter Cath placed during this visit: yes, but has since been removed by the nurse Reason for continuing: Chronic Urinary Retention Removal date: 08/18/18 Removal time: 20:20 Assessment and Plan - Assessment (1) Subarachnoid bleed Code(s): I60.9 - Nontraumatic subarachnoid hemorrhage, unspecified Status: Acute Plan: Stable (2) UTI (urinary tract infection) Code(s): N39.0 - Urinary tract infection, site not specified Status: Acute Plan: resolved (3) Seizure disorder Code(s): G40.909 - Epilepsy, unspecified, not intractable, without status epilepticus Status: Acute Plan: Cont home medications Keppra. No seizures reported this adm. 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 Controlled on home meds. (6) Dementia Code(s): F03.90 - Unspecified dementia without behavioral disturbance Status: Acute Plan: Mood appears stable, baseline unknown, (7) Diabetes Code(s): E11.9 - Type 2 diabetes mellitus without complications Status: Acute Plan: Monitor BS, AC/HS s/c coverage MITTAL, monitor close, - Assessment and Plan 08/18/18- Seen earlier this am, family at bedside. Daughter upset with mothers condition. Patient essentially non verbal, has nonsensical conversations. Appears comfortable. She was seen by neuro yesterday, MRI.MRA ordered and completed. Neuro recommends repeat CT in 1 week. restarting asa and Plavix appreciated. She is positive for UTI, > 100,000 Gram - rods, sensitivity pending. Family wishes not to return to previous facility, they will tour facilities today. DC when cleared by neuro and arrangement's made. 08/20/18- Uneventful night reported, Vss Afebrile. Dc when bad available 08/21/18- No apparent distress, Vss afebrile. She is on isolation for ESBL, on IV Rocephin and Macrobid. Dc once arrangements made. 08/25/18- Sleepy this am, arousalable will follow simile commands. She has low BS this am 45, hypoglycemia protocol. MITTAL adjusted. Will cont to monitor. CM cont to work on placement. 08/26/18/ Seen this am, she is found in bed, appears comfortable. Schilling to bedside, urine clear. She is getting Iv ertapenem for ESBL. Will repeats CT of head per neurology Rec's, restart ASA, plavix per neuro. Case management working on placement. Difficult placement. 08/28/18- Resting comfortable, per CM notes will need to complete Iv antibiotics before SNF will accept. . Appreciate neuro rec's on restarting asa, plavix. Vss afebrile. Dc when arrangements made 08/29/18 - Neuro following and she remains on IV antibiotics which prevents return to her SNF, per CM, at this time. Will cont to monitor and cont current plan until D/C, hopefully on Friday. 08/30/18 - For return to SNF when IV antibiotics finished. Signed 3008 is on her chart. She is afebrile and her VS are stable. 08/31/18- Vss afebrile, completed antibiotics, B/P controlled, BS slightly elevated will increase MITTAL, cont to monitor awaiting placement. 09/01/18 VSS afebrile. She has completed antibiotics for uti, labs today show increase creatinine, likely related to poor po intake. Po fluid encouraged. Will give some fluid prior to dc. Patient is bedbound, has left amputation. BS have been in 200's, she is on MITTAL 7u, @ hs this was decreased from 10, r/t low BS. DC to snf when arrangements made. 3008 on chart script for Ativan provided 09/02/18- Seen this am, appears comfortable. She is alert, oriented x 1. Labs this am show normal creatinine, IVF dc. She is waiting placement. BS have been elevated will increase MITTAL. Cont to monitor BS Progress Note: Quality - AMI Clinical Trial Participant: No (7) Diabetes Qualifiers: Diabetes mellitus type: type 2
[2018-09-02] MEDS: LORazepam 0.5 MG Tablet PO PRN (15:41)
[2018-09-02] MEDS: Insulin Detemir Inj 1,000 UNIT/10 ML Vial SQ SCH (21:56)
[2018-09-03] MEDS: Insulin NovoLOG Aspart Correctional Sugar Inj SQ SCH ×4 (08:00→21:02)
--- NOTE | 2018-09-03 09:20 | P.PNFP ---
Subjective Interval history: Resting in bed, appears comfortable. she is alert oriented x 1. Results - Labs Result diagrams: 08/31/18 07:18 09/02/18 06:11 Abnormal lab results 09/02/18 09/02/18 09/02/18 Range/Units 13:07 17:08 21:43 POC Glucose 157 H 231 H 260 H (68-110) mg/dl Physical Exam Vital signs: Vital Signs 09/02/18 16:59 09/02/18 18:37 09/02/18 20:00 Temperature 98.0 F 98.0 F Pulse Rate 73 76 74 Respiratory Rate 20 18 Blood Pressure 135/72 142/71 H Pulse Oximetry 98 95 09/03/18 00:00 09/03/18 04:00 09/03/18 08:34 Temperature 97.4 F L 97.7 F Pulse Rate 66 73 68 Respiratory Rate 20 20 17 Blood Pressure 107/70 148/82 H 121/74 Pulse Oximetry 98 100 99 Intake & Output 09/02/18 09/03/18 09/03/18 18:59 06:59 18:59 Intake Total 1000 / 1000 380 / 380 Output Total 1000 / 1000 Balance 1000 / 1000 -620 / -620 Weight 58.2 kg Intake: IV 1000 / 1000 NS Inj 1,000 ML @ 125 mls/hr IV 1000 / 1000 .CONT .Q8H [facility] Rx#:[id number] Oral 380 / 380 Output: Urine 1000 / 1000 Other: Date of Last Bowel Movement 09/02/18 09/02/18 # Incontinent Bowel Movements 1 - Constitutional no acute distress - Routine HEENT Exam ENT: Present: mucous membranes moist - Routine Respiratory Exam Present: CTA bilaterally - Routine Cardiovascular Exam Present: S1, S2 - Routine Abdominal Exam Present: soft, normoactive bowel sounds - Routine Extremities Exam Present: amputation - Routine Skin Exam Present: dry, warm - Routine Neurological Exam Present: alert - Routine Psychiatric Exam Present: cooperative - Urinary Catheter Management Indwelling Urethral Catheter Cath placed during this visit: yes Urethral indwelling: No Reason for continuing: Chronic Urinary Retention Insertion date: 08/18/18 Insertion time: 20:30 Indwelling Temp Sensing Catheter Cath placed during this visit: yes, but has since been removed by the nurse Reason for continuing: Chronic Urinary Retention Removal date: 08/18/18 Removal time: 20:20 Assessment and Plan - Assessment (1) Subarachnoid bleed Code(s): I60.9 - Nontraumatic subarachnoid hemorrhage, unspecified Status: Acute Plan: Stable (2) UTI (urinary tract infection) Code(s): N39.0 - Urinary tract infection, site not specified Status: Acute Plan: resolved (3) Seizure disorder Code(s): G40.909 - Epilepsy, unspecified, not intractable, without status epilepticus Status: Acute Plan: Cont home medications Keppra. No seizures reported this adm. 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 Controlled on home meds. (6) Dementia Code(s): F03.90 - Unspecified dementia without behavioral disturbance Status: Acute Plan: Mood appears stable, baseline unknown, (7) Diabetes Code(s): E11.9 - Type 2 diabetes mellitus without complications Status: Acute Plan: Monitor BS, AC/HS s/c coverage MITTAL, monitor close, - Assessment and Plan 08/18/18- Seen earlier this am, family at bedside. Daughter upset with mothers condition. Patient essentially non verbal, has nonsensical conversations. Appears comfortable. She was seen by neuro yesterday, MRI.MRA ordered and completed. Neuro recommends repeat CT in 1 week. restarting asa and Plavix appreciated. She is positive for UTI, > 100,000 Gram - rods, sensitivity pending. Family wishes not to return to previous facility, they will tour facilities today. DC when cleared by neuro and arrangement's made. 08/20/18- Uneventful night reported, Vss Afebrile. Dc when bad available 08/21/18- No apparent distress, Vss afebrile. She is on isolation for ESBL, on IV Rocephin and Macrobid. Dc once arrangements made. 08/25/18- Sleepy this am, arousalable will follow simile commands. She has low BS this am 45, hypoglycemia protocol. MITTAL adjusted. Will cont to monitor. CM cont to work on placement. 08/26/18/ Seen this am, she is found in bed, appears comfortable. Gonsalez to bedside, urine clear. She is getting Iv ertapenem for ESBL. Will repeats CT of head per neurology Rec's, restart ASA, plavix per neuro. Case management working on placement. Difficult placement. 08/28/18- Resting comfortable, per CM notes will need to complete Iv antibiotics before SNF will accept. . Appreciate neuro rec's on restarting asa, plavix. Vss afebrile. Dc when arrangements made 08/29/18 - Neuro following and she remains on IV antibiotics which prevents return to her SNF, per CM, at this time. Will cont to monitor and cont current plan until D/C, hopefully on Friday. 08/30/18 - For return to SNF when IV antibiotics finished. Signed 3008 is on her chart. She is afebrile and her VS are stable. 08/31/18- Vss afebrile, completed antibiotics, B/P controlled, BS slightly elevated will increase MITTAL, cont to monitor awaiting placement. 09/01/18 VSS afebrile. She has completed antibiotics for uti, labs today show increase creatinine, likely related to poor po intake. Po fluid encouraged. Will give some fluid prior to dc. Patient is bedbound, has left amputation. BS have been in 200's, she is on MITTAL 7u, @ hs this was decreased from 10, r/t low BS. DC to snf when arrangements made. 3008 on chart script for Ativan provided 09/02/18- Seen this am, appears comfortable. She is alert, oriented x 1. Labs this am show normal creatinine, IVF dc. She is waiting placement. BS have been elevated will increase MITTAL. Cont to monitor BS 09/03/18- Appears comfortable, per notes has periods of agitation. Does have Ativan. CM working Placement, DC when arrangements made. Has gonsalez cath will dc. MITTAL increased yesterday, cont to monitor. Progress Note: Quality - AMI Clinical Trial Participant: No (7) Diabetes Qualifiers: Diabetes mellitus type: type 2
[2018-09-03] MEDS: levETIRAcetam 500 MG Tablet PO SCH ×2 (10:38→21:00)
[2018-09-03] MEDS: Carvedilol 12.5 MG Tablet PO SCH ×2 (10:39→21:01)
[2018-09-03] MEDS: amLODIPine 10 MG Tablet PO SCH (10:39)
[2018-09-03] MEDS: Duloxetine 60 MG DR Capsule PO SCH (10:40)
[2018-09-03] MEDS: Insulin Detemir Inj 1,000 UNIT/10 ML Vial SQ SCH (21:01)
[2018-09-03] MEDS: LORazepam 0.5 MG Tablet PO PRN (21:04)
--- NOTE | 2018-09-04 10:08 | P.PNFP ---
Subjective Interval history: Resting in bed,no apparent distress She is alert, oriented x1 Results - Labs Result diagrams: 08/31/18 07:18 09/02/18 06:11 Abnormal lab results 09/03/18 09/03/18 09/03/18 Range/Units 10:46 16:52 16:54 POC Glucose 153 H 273 H 228 H (68-110) mg/dl 09/03/18 09/04/18 Range/Units 20:26 08:46 POC Glucose 189 H 146 H (68-110) mg/dl Physical Exam Vital signs: Vital Signs 09/03/18 12:00 09/03/18 12:55 09/03/18 16:00 Temperature 98.1 F Pulse Rate 69 72 68 Respiratory Rate 16 Blood Pressure 130/69 Pulse Oximetry 96 09/03/18 16:32 09/03/18 20:00 09/04/18 00:20 Temperature 97.9 F 98.3 F Pulse Rate 76 76 71 Respiratory Rate 17 18 Blood Pressure 138/69 129/71 Pulse Oximetry 97 96 09/04/18 01:48 09/04/18 05:41 09/04/18 08:01 Temperature 97.9 F 97.5 F L 97.7 F Pulse Rate 69 69 76 Respiratory Rate 18 18 20 Blood Pressure 134/88 133/69 124/67 Pulse Oximetry 97 96 98 Intake & Output 09/03/18 09/04/18 09/04/18 18:59 06:59 18:59 Output Total 1500 / 1500 Balance -1500 / -1500 Weight 62.3 kg Output: Urine Amount (Catheter) 1500 / 1500 Indwelling Urethral Catheter 1500 / 1500 Other: # Incontinent Voids 2 Date of Last Bowel Movement 09/02/18 09/04/18 # Bowel Movements 2 # Incontinent Bowel Movements 2 - Constitutional no acute distress - Routine HEENT Exam Eye: Present: PERRL ENT: Present: mucous membranes moist - Routine Respiratory Exam Present: CTA bilaterally - Routine Cardiovascular Exam Present: S1, S2 - Routine Abdominal Exam Present: soft, normoactive bowel sounds - Routine Extremities Exam Present: amputation - Routine Skin Exam Present: dry, warm - Routine Neurological Exam Present: alert - Routine Psychiatric Exam Present: cooperative - Urinary Catheter Management Indwelling Urethral Catheter Cath placed during this visit: yes, but has since been removed by the nurse Urethral indwelling: No Reason for continuing: Chronic Urinary Retention Insertion date: 08/18/18 Insertion time: 20:30 Removal date: 09/03/18 Removal time: 22:00 Indwelling Temp Sensing Catheter Cath placed during this visit: yes, but has since been removed by the nurse Reason for continuing: Chronic Urinary Retention Removal date: 08/18/18 Removal time: 20:20 Assessment and Plan - Assessment (1) Subarachnoid bleed Code(s): I60.9 - Nontraumatic subarachnoid hemorrhage, unspecified Status: Acute Plan: Stable (2) UTI (urinary tract infection) Code(s): N39.0 - Urinary tract infection, site not specified Status: Acute Plan: resolved (3) Seizure disorder Code(s): G40.909 - Epilepsy, unspecified, not intractable, without status epilepticus Status: Acute Plan: Cont home medications Keppra. No seizures reported this adm. 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 Controlled on home meds. (6) Dementia Code(s): F03.90 - Unspecified dementia without behavioral disturbance Status: Acute Plan: Mood appears stable, baseline unknown, (7) Diabetes Code(s): E11.9 - Type 2 diabetes mellitus without complications Status: Acute Plan: Monitor BS, AC/HS s/c coverage MITTAL, monitor close, - Assessment and Plan 08/18/18- Seen earlier this am, family at bedside. Daughter upset with mothers condition. Patient essentially non verbal, has nonsensical conversations. Appears comfortable. She was seen by neuro yesterday, MRI.MRA ordered and completed. Neuro recommends repeat CT in 1 week. restarting asa and Plavix appreciated. She is positive for UTI, > 100,000 Gram - rods, sensitivity pending. Family wishes not to return to previous facility, they will tour facilities today. DC when cleared by neuro and arrangement's made. 08/20/18- Uneventful night reported, Vss Afebrile. Dc when bad available 08/21/18- No apparent distress, Vss afebrile. She is on isolation for ESBL, on IV Rocephin and Macrobid. Dc once arrangements made. 08/25/18- Sleepy this am, arousalable will follow simile commands. She has low BS this am 45, hypoglycemia protocol. MITTAL adjusted. Will cont to monitor. CM cont to work on placement. 08/26/18/ Seen this am, she is found in bed, appears comfortable. Gonsalez to bedside, urine clear. She is getting Iv ertapenem for ESBL. Will repeats CT of head per neurology Rec's, restart ASA, plavix per neuro. Case management working on placement. Difficult placement. 08/28/18- Resting comfortable, per CM notes will need to complete Iv antibiotics before SNF will accept. . Appreciate neuro rec's on restarting asa, plavix. Vss afebrile. Dc when arrangements made 08/29/18 - Neuro following and she remains on IV antibiotics which prevents return to her SNF, per CM, at this time. Will cont to monitor and cont current plan until D/C, hopefully on Friday. 08/30/18 - For return to SNF when IV antibiotics finished. Signed 3008 is on her chart. She is afebrile and her VS are stable. 08/31/18- Vss afebrile, completed antibiotics, B/P controlled, BS slightly elevated will increase MITTAL, cont to monitor awaiting placement. 09/01/18 VSS afebrile. She has completed antibiotics for uti, labs today show increase creatinine, likely related to poor po intake. Po fluid encouraged. Will give some fluid prior to dc. Patient is bedbound, has left amputation. BS have been in 200's, she is on MITTAL 7u, @ hs this was decreased from 10, r/t low BS. DC to snf when arrangements made. 3008 on chart script for Ativan provided 09/02/18- Seen this am, appears comfortable. She is alert, oriented x 1. Labs this am show normal creatinine, IVF dc. She is waiting placement. BS have been elevated will increase MITTAL. Cont to monitor BS 09/03/18- Appears comfortable, per notes has periods of agitation. Does have Ativan. CM working Placement, DC when arrangements made. Has gonsalez cath will dc. MITTAL increased yesterday, cont to monitor. 09/04/18- Found in bed resting appears comfortable. she is alert oriented x1. BS continue to run in 200's, will increase MITTAL. Cm working on placement. Progress Note: Quality - AMI Clinical Trial Participant: No (7) Diabetes Qualifiers: Diabetes mellitus type: type 2
[2018-09-04] MEDS: amLODIPine 10 MG Tablet PO SCH (11:25)
[2018-09-04] MEDS: levETIRAcetam 500 MG Tablet PO SCH ×2 (11:25→22:17)
[2018-09-04] MEDS: Insulin NovoLOG Aspart Correctional Sugar Inj SQ SCH ×4 (11:26→22:32)
[2018-09-04] MEDS: Carvedilol 12.5 MG Tablet PO SCH ×2 (11:26→22:17)
[2018-09-04] MEDS: Duloxetine 60 MG DR Capsule PO SCH (11:26)
[2018-09-04] MEDS: LORazepam 0.5 MG Tablet PO PRN (18:45)
[2018-09-04] MEDS: Insulin Detemir Inj 1,000 UNIT/10 ML Vial SQ SCH (22:17)
[2018-09-05 06:12] LABS: Mean Corpuscular HGB Conc 33.4 % (32.0-36.0); Mean Corpuscular Hemoglobin 30.3 pg (27.0-34.0); Mean Corpuscular Volume 90.7 fL (80.0-100.0); Mean Platelet Volume 9.5 fL (7.0-11.0); Platelet Count 174 th/mm3 (150-450); Red Blood Count 3.97 mil/mm3 (4.00-5.30); Red Cell Distribution Width 14.6 % (11.6-17.2); White Blood Count 5.7 th/mm3 (4.0-11.0)
[2018-09-05 06:45] LABS: Calcium 9.4 mg/dL (8.5-10.1); Carbon Dioxide 26.9 meq/L (21.0-32.0)
[2018-09-05] MEDS: Insulin NovoLOG Aspart Correctional Sugar Inj SQ SCH ×4 (08:03→23:52)
[2018-09-05] MEDS: Carvedilol 12.5 MG Tablet PO SCH ×2 (08:34→21:43)
[2018-09-05] MEDS: amLODIPine 10 MG Tablet PO SCH (08:34)
[2018-09-05] MEDS: Duloxetine 60 MG DR Capsule PO SCH (08:35)
[2018-09-05] MEDS: levETIRAcetam 500 MG Tablet PO SCH ×2 (08:35→21:43)
--- NOTE | 2018-09-05 12:55 | P.PNFP ---
Subjective Interval history: She remains lethargic and answers questions with a single word but denies pain. Results - Labs Result diagrams: 09/05/18 05:14 09/05/18 05:14 Abnormal lab results 09/04/18 09/04/18 09/04/18 Range/Units 13:19 17:36 22:20 RBC (4.00-5.30) mil/mm3 Chloride (98-107) meq/L BUN (7-18) mg/dL Estimated GFR (>89) mL/min POC Glucose 233 H 207 H 250 H (68-110) mg/dl 09/05/18 09/05/18 09/05/18 Range/Units 05:14 05:14 07:53 RBC 3.97 L (4.00-5.30) mil/mm3 Chloride 109 H (98-107) meq/L BUN 20 H (7-18) mg/dL Estimated GFR 69 L (>89) mL/min POC Glucose 164 H (68-110) mg/dl 09/05/18 Range/Units 12:42 RBC (4.00-5.30) mil/mm3 Chloride (98-107) meq/L BUN (7-18) mg/dL Estimated GFR (>89) mL/min POC Glucose 274 H (68-110) mg/dl Short CBC 09/05/18 Range/Units 05:14 WBC 5.7 (4.0-11.0) th/mm3 Hgb 12.0 (11.6-15.3) gm/dL Hct 36.0 (35.0-46.0) % Plt Count 174 (150-450) th/mm3 [facility] 09/05/18 05:14 Sodium 143 Potassium 4.0 Chloride 109 H Carbon Dioxide 26.9 BUN 20 H Creatinine 0.97 Calcium 9.4 Physical Exam Vital signs: Vital Signs 09/04/18 16:00 09/04/18 16:32 09/04/18 20:00 Temperature 98.5 F 98.4 F Pulse Rate 73 80 73 Respiratory Rate 18 14 Blood Pressure 98/59 L 107/57 L Pulse Oximetry 95 97 09/05/18 00:00 09/05/18 08:14 09/05/18 09:00 Temperature 98.4 F 97.8 F Pulse Rate 74 80 74 Respiratory Rate 20 14 Blood Pressure 98/56 L 106/52 L Pulse Oximetry 98 97 Intake & Output 09/04/18 09/05/18 09/05/18 18:59 06:59 18:59 Intake Total 880 / 880 Balance 880 / 880 Weight 60.6 kg Intake: Oral 880 / 880 Other: # Incontinent Voids 1 Date of Last Bowel Movement 09/04/18 09/05/18 09/05/18 # Incontinent Bowel Movements 1 - Constitutional no acute distress - Routine HEENT Exam Head: Present: normocephalic Eye: Present: PERRL, normal accommodation ENT: Present: mucous membranes moist - Routine Neck Exam Present: supple - Routine Respiratory Exam Present: CTA bilaterally - Routine Cardiovascular Exam Present: RRR, S1, S2 - Routine Abdominal Exam Present: soft, normoactive bowel sounds - Routine Extremities Exam Absent: edema - Routine Skin Exam Present: intact - Routine Neurological Exam Present: altered mental status - Detailed Neurological Exam: Coma Scale Eye Opening: To sound Verbal Response: Words Motor Response: Obey commands Williams Coma Scale Total: 12 - Routine Psychiatric Exam Present: unable to assess - Urinary Catheter Management Indwelling Urethral Catheter Cath placed during this visit: yes, but has since been removed by the nurse Urethral indwelling: No Reason for continuing: Chronic Urinary Retention Insertion date: 08/18/18 Insertion time: 20:30 Removal date: 09/03/18 Removal time: 22:00 Indwelling Temp Sensing Catheter Cath placed during this visit: yes, but has since been removed by the nurse Reason for continuing: Chronic Urinary Retention Removal date: 08/18/18 Removal time: 20:20 Assessment and Plan - Assessment (1) Subarachnoid bleed Code(s): I60.9 - Nontraumatic subarachnoid hemorrhage, unspecified Status: Acute Plan: Stable (2) UTI (urinary tract infection) Code(s): N39.0 - Urinary tract infection, site not specified Status: Resolved Plan: resolved (3) Seizure disorder Code(s): G40.909 - Epilepsy, unspecified, not intractable, without status epilepticus Status: Chronic Plan: Cont home medications Keppra. No seizures reported this adm. 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 Controlled on home meds. (6) Dementia Code(s): F03.90 - Unspecified dementia without behavioral disturbance Status: Acute Plan: Mood appears stable, baseline unknown; also known to have chronic schizophrenia complicating MS (7) Diabetes Code(s): E11.9 - Type 2 diabetes mellitus without complications Status: Acute Plan: Monitor BS, AC/HS s/c coverage MITTAL, monitor close, - Assessment and Plan 08/18/18- Seen earlier this am, family at bedside. Daughter upset with mothers condition. Patient essentially non verbal, has nonsensical conversations. Appears comfortable. She was seen by neuro yesterday, MRI.MRA ordered and completed. Neuro recommends repeat CT in 1 week. restarting asa and Plavix appreciated. She is positive for UTI, > 100,000 Gram - rods, sensitivity pending. Family wishes not to return to previous facility, they will tour facilities today. DC when cleared by neuro and arrangement's made. 08/20/18- Uneventful night reported, Vss Afebrile. Dc when bad available 08/21/18- No apparent distress, Vss afebrile. She is on isolation for ESBL, on IV Rocephin and Macrobid. Dc once arrangements made. 08/25/18- Sleepy this am, arousalable will follow simile commands. She has low BS this am 45, hypoglycemia protocol. MITTAL adjusted. Will cont to monitor. CM cont to work on placement. 08/26/18/ Seen this am, she is found in bed, appears comfortable. Gonsalez to bedside, urine clear. She is getting Iv ertapenem for ESBL. Will repeats CT of head per neurology Rec's, restart ASA, plavix per neuro. Case management working on placement. Difficult placement. 08/28/18- Resting comfortable, per CM notes will need to complete Iv antibiotics before SNF will accept. . Appreciate neuro rec's on restarting asa, plavix. Vss afebrile. Dc when arrangements made 08/29/18 - Neuro following and she remains on IV antibiotics which prevents return to her SNF, per CM, at this time. Will cont to monitor and cont current plan until D/C, hopefully on Friday. 08/30/18 - For return to SNF when IV antibiotics finished. Signed 3008 is on her chart. She is afebrile and her VS are stable. 08/31/18- Vss afebrile, completed antibiotics, B/P controlled, BS slightly elevated will increase MITTAL, cont to monitor awaiting placement. 09/01/18 VSS afebrile. She has completed antibiotics for uti, labs today show increase creatinine, likely related to poor po intake. Po fluid encouraged. Will give some fluid prior to dc. Patient is bedbound, has left amputation. BS have been in 200's, she is on MITTAL 7u, @ hs this was decreased from 10, r/t low BS. DC to snf when arrangements made. 3008 on chart script for Ativan provided 09/02/18- Seen this am, appears comfortable. She is alert, oriented x 1. Labs this am show normal creatinine, IVF dc. She is waiting placement. BS have been elevated will increase MITTAL. Cont to monitor BS 09/03/18- Appears comfortable, per notes has periods of agitation. Does have Ativan. CM working Placement, DC when arrangements made. Has gonsalez cath will dc. MITTAL increased yesterday, cont to monitor. 09/04/18- Found in bed resting appears comfortable. she is alert oriented x1. BS continue to run in 200's, will increase MITTAL. Cm working on placement. 09/05/18 - I am told holdup with D/C is CM cannot find a SNF that will accept the patient. She is stable and remains afebrile in NAD. Will cont to support and monitor closely pending D/C to accepting SNF when available. Discharge Planning: SNF Progress Note: Quality - AMI Clinical Trial Participant: No (7) Diabetes Qualifiers: Diabetes mellitus type: type 2
[2018-09-05] MEDS: Insulin Detemir Inj 1,000 UNIT/10 ML Vial SQ SCH (21:44)
[2018-09-05] MEDS: LORazepam 0.5 MG Tablet PO PRN (22:13)
[2018-09-06] MEDS: Carvedilol 12.5 MG Tablet PO SCH ×3 (03:40→21:39)
[2018-09-06] MEDS: Insulin NovoLOG Aspart Correctional Sugar Inj SQ SCH ×5 (09:37→22:13)
[2018-09-06] MEDS: amLODIPine 10 MG Tablet PO SCH (09:38)
[2018-09-06] MEDS: levETIRAcetam 500 MG Tablet PO SCH ×2 (09:38→21:39)
[2018-09-06] MEDS: Duloxetine 60 MG DR Capsule PO SCH (09:38)
--- NOTE | 2018-09-06 11:09 | P.PNFP ---
Subjective Interval history: She is lethargic and aroused when examined. She answers "no" when asked if she is in pain. That is the extent of her interaction and she promptly goes back to sleep. Results - Labs Result diagrams: 09/05/18 05:14 09/05/18 05:14 Abnormal lab results 09/05/18 09/05/18 09/05/18 Range/Units 12:42 16:42 22:29 POC Glucose 274 H 271 H 177 H (68-110) mg/dl 09/06/18 Range/Units 09:10 POC Glucose 153 H (68-110) mg/dl Physical Exam Vital signs: Vital Signs 09/05/18 12:00 09/05/18 17:38 09/05/18 17:46 Temperature 97.7 F 98.0 F Pulse Rate 80 76 81 Respiratory Rate 14 16 Blood Pressure 133/74 129/66 Pulse Oximetry 97 98 09/06/18 00:00 09/06/18 04:00 09/06/18 08:29 Temperature 97.9 F 98.0 F 97.7 F Pulse Rate 78 74 72 Respiratory Rate 16 20 18 Blood Pressure 138/67 110/60 115/69 Pulse Oximetry 98 94 L 98 Intake & Output 09/05/18 09/06/18 09/06/18 18:59 06:59 18:59 Output Total 975 / 975 1600 / 1600 Balance -975 / -975 -1600 / -1600 Weight 60.6 kg Output: Urine Amount (Catheter) 975 / 975 1600 / 1600 Straight 975 / 975 1600 / 1600 Other: # Incontinent Voids 3 Date of Last Bowel Movement 09/05/18 09/06/18 # Bowel Movements 3 - Constitutional no acute distress, somnolent - Routine HEENT Exam Head: Present: normocephalic, atraumatic Eye: Absent: conjunctival icterus ENT: Present: mucous membranes moist - Routine Neck Exam Present: supple - Routine Respiratory Exam Present: CTA bilaterally - Routine Cardiovascular Exam Present: RRR, S1, S2 - Routine Abdominal Exam Present: soft, normoactive bowel sounds - Routine Extremities Exam Absent: cyanosis, edema - Routine Skin Exam Present: intact - Routine Neurological Exam Present: altered mental status - Detailed Neurological Exam: Coma Scale Eye Opening: To pressure Verbal Response: Confused Motor Response: Normal flexion Williams Coma Scale Total: 10 - Routine Psychiatric Exam Present: unable to assess - Urinary Catheter Management Indwelling Urethral Catheter Cath placed during this visit: yes, but has since been removed by the nurse Urethral indwelling: No Reason for continuing: Chronic Urinary Retention Insertion date: 08/18/18 Insertion time: 20:30 Removal date: 09/03/18 Removal time: 22:00 Indwelling Temp Sensing Catheter Cath placed during this visit: yes, but has since been removed by the nurse Reason for continuing: Chronic Urinary Retention Removal date: 08/18/18 Removal time: 20:20 Straight Cath placed during this visit: yes, but has since been removed by the nurse Reason for continuing: Not indwelling catheter Insertion date: 09/06/18 Insertion time: 04:46 Removal date: 09/06/18 Removal time: 04:49 Assessment and Plan - Assessment (1) Subarachnoid bleed Code(s): I60.9 - Nontraumatic subarachnoid hemorrhage, unspecified Status: Acute Plan: Stable (2) UTI (urinary tract infection) Code(s): N39.0 - Urinary tract infection, site not specified Status: Resolved Plan: resolved (3) Seizure disorder Code(s): G40.909 - Epilepsy, unspecified, not intractable, without status epilepticus Status: Chronic Plan: Cont home medications Keppra. No seizures reported this adm. 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 Controlled on home meds. (6) Dementia Code(s): F03.90 - Unspecified dementia without behavioral disturbance Status: Acute Plan: Mood appears stable, baseline unknown; also known to have chronic schizophrenia complicating MS (7) Diabetes Code(s): E11.9 - Type 2 diabetes mellitus without complications Status: Acute Plan: Monitor BS, AC/HS s/c coverage MITTAL, monitor close, - Assessment and Plan 08/18/18- Seen earlier this am, family at bedside. Daughter upset with mothers condition. Patient essentially non verbal, has nonsensical conversations. Appears comfortable. She was seen by neuro yesterday, MRI.MRA ordered and completed. Neuro recommends repeat CT in 1 week. restarting asa and Plavix appreciated. She is positive for UTI, > 100,000 Gram - rods, sensitivity pending. Family wishes not to return to previous facility, they will tour facilities today. DC when cleared by neuro and arrangement's made. 08/20/18- Uneventful night reported, Vss Afebrile. Dc when bad available 08/21/18- No apparent distress, Vss afebrile. She is on isolation for ESBL, on IV Rocephin and Macrobid. Dc once arrangements made. 08/25/18- Sleepy this am, arousalable will follow simile commands. She has low BS this am 45, hypoglycemia protocol. MITTAL adjusted. Will cont to monitor. CM cont to work on placement. 08/26/18/ Seen this am, she is found in bed, appears comfortable. Gonsalez to bedside, urine clear. She is getting Iv ertapenem for ESBL. Will repeats CT of head per neurology Rec's, restart ASA, plavix per neuro. Case management working on placement. Difficult placement. 08/28/18- Resting comfortable, per CM notes will need to complete Iv antibiotics before SNF will accept. . Appreciate neuro rec's on restarting asa, plavix. Vss afebrile. Dc when arrangements made 08/29/18 - Neuro following and she remains on IV antibiotics which prevents return to her SNF, per CM, at this time. Will cont to monitor and cont current plan until D/C, hopefully on Friday. 08/30/18 - For return to SNF when IV antibiotics finished. Signed 3008 is on her chart. She is afebrile and her VS are stable. 08/31/18- Vss afebrile, completed antibiotics, B/P controlled, BS slightly elevated will increase MITTAL, cont to monitor awaiting placement. 09/01/18 VSS afebrile. She has completed antibiotics for uti, labs today show increase creatinine, likely related to poor po intake. Po fluid encouraged. Will give some fluid prior to dc. Patient is bedbound, has left amputation. BS have been in 200's, she is on MITTAL 7u, @ hs this was decreased from 10, r/t low BS. DC to snf when arrangements made. 3008 on chart script for Ativan provided 09/02/18- Seen this am, appears comfortable. She is alert, oriented x 1. Labs this am show normal creatinine, IVF dc. She is waiting placement. BS have been elevated will increase MITTAL. Cont to monitor BS 09/03/18- Appears comfortable, per notes has periods of agitation. Does have Ativan. CM working Placement, DC when arrangements made. Has gonsalez cath will dc. MITTAL increased yesterday, cont to monitor. 09/04/18- Found in bed resting appears comfortable. she is alert oriented x1. BS continue to run in 200's, will increase MITTAL. Cm working on placement. 09/05/18 - I am told holdup with D/C is CM cannot find a SNF that will accept the patient. She is stable and remains afebrile in NAD. Will cont to support and monitor closely pending D/C to accepting SNF when available. 09/06/18 - CM is seeking SNF placement and patient medically stable for D/C. Discharge Planning: SNF Progress Note: Quality - AMI Clinical Trial Participant: No (7) Diabetes Qualifiers: Diabetes mellitus type: type 2
[2018-09-06] MEDS: LORazepam 0.5 MG Tablet PO PRN (15:14)
[2018-09-06] MEDS: Insulin Detemir Inj 1,000 UNIT/10 ML Vial SQ SCH (22:13)
[2018-09-07 05:14] VITALS: PULSE 72; TEMP 97.1; O2SAT 99
[2018-09-07] MEDS: Insulin NovoLOG Aspart Correctional Sugar Inj SQ SCH ×2 (08:09→13:25)
[2018-09-07] MEDS: Carvedilol 12.5 MG Tablet PO SCH (08:54)
[2018-09-07] MEDS: Duloxetine 60 MG DR Capsule PO SCH (08:54)
[2018-09-07] MEDS: amLODIPine 10 MG Tablet PO SCH (08:54)
[2018-09-07] MEDS: levETIRAcetam 500 MG Tablet PO SCH (08:54)
[2018-09-07 09:18] VITALS: BP 128/72; RESP 20
--- NOTE | 2018-09-07 09:31 | P.PNFP ---
Subjective Interval history: Resting in bed, appears comfortable Alert oriented x1. Results - Labs Result diagrams: 09/05/18 05:14 09/05/18 05:14 Abnormal lab results 09/06/18 09/06/18 Range/Units 13:14 21:32 POC Glucose 194 H 363 H (68-110) mg/dl Physical Exam Vital signs: Vital Signs 09/06/18 13:06 09/06/18 16:31 09/06/18 20:00 Temperature 97.5 F L 98 F 98.3 F Pulse Rate 76 77 82 Respiratory Rate 18 18 17 Blood Pressure 142/63 H 130/61 125/62 Pulse Oximetry 94 L 99 96 09/07/18 00:00 09/07/18 04:00 09/07/18 07:40 Temperature 97.6 F 97.1 F L Pulse Rate 79 72 Respiratory Rate 18 18 20 Blood Pressure 111/66 139/75 128/72 Pulse Oximetry 98 99 99 Intake & Output 09/06/18 09/07/18 09/07/18 18:59 06:59 18:59 Weight 59.5 kg Other: Date of Last Bowel Movement 09/06/18 09/07/18 09/06/18 # Incontinent Bowel Movements 4 2 - Constitutional no acute distress - Routine HEENT Exam ENT: Present: mucous membranes moist - Routine Neck Exam Present: supple - Routine Respiratory Exam Present: CTA bilaterally - Routine Cardiovascular Exam Present: S1, S2 - Routine Abdominal Exam Present: soft, normoactive bowel sounds - Routine Extremities Exam Present: amputation - Routine Skin Exam Present: dry, warm - Routine Neurological Exam Present: alert - Routine Psychiatric Exam Present: cooperative - Urinary Catheter Management Indwelling Urethral Catheter Cath placed during this visit: yes, but has since been removed by the nurse Urethral indwelling: No Reason for continuing: Chronic Urinary Retention Insertion date: 08/18/18 Insertion time: 20:30 Removal date: 09/03/18 Removal time: 22:00 Indwelling Temp Sensing Catheter Cath placed during this visit: yes, but has since been removed by the nurse Reason for continuing: Chronic Urinary Retention Removal date: 08/18/18 Removal time: 20:20 Straight Cath placed during this visit: yes, but has since been removed by the nurse Reason for continuing: Decision to DC catheter Insertion date: 09/06/18 Insertion time: 04:46 Removal date: 09/06/18 Removal time: 04:49 Assessment and Plan - Assessment (1) Subarachnoid bleed Code(s): I60.9 - Nontraumatic subarachnoid hemorrhage, unspecified Status: Acute Plan: Stable (2) UTI (urinary tract infection) Code(s): N39.0 - Urinary tract infection, site not specified Status: Resolved Plan: resolved (3) Seizure disorder Code(s): G40.909 - Epilepsy, unspecified, not intractable, without status epilepticus Status: Chronic Plan: Cont home medications Keppra. No seizures reported this adm. 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 Controlled on home meds. (6) Dementia Code(s): F03.90 - Unspecified dementia without behavioral disturbance Status: Acute Plan: Mood appears stable, baseline unknown; also known to have chronic schizophrenia complicating MS (7) Diabetes Code(s): E11.9 - Type 2 diabetes mellitus without complications Status: Acute Plan: Monitor BS, AC/HS s/c coverage MITTAL, monitor close, - Assessment and Plan 08/18/18- Seen earlier this am, family at bedside. Daughter upset with mothers condition. Patient essentially non verbal, has nonsensical conversations. Appears comfortable. She was seen by neuro yesterday, MRI.MRA ordered and completed. Neuro recommends repeat CT in 1 week. restarting asa and Plavix appreciated. She is positive for UTI, > 100,000 Gram - rods, sensitivity pending. Family wishes not to return to previous facility, they will tour facilities today. DC when cleared by neuro and arrangement's made. 08/20/18- Uneventful night reported, Vss Afebrile. Dc when bad available 08/21/18- No apparent distress, Vss afebrile. She is on isolation for ESBL, on IV Rocephin and Macrobid. Dc once arrangements made. 08/25/18- Sleepy this am, arousalable will follow simile commands. She has low BS this am 45, hypoglycemia protocol. MITTAL adjusted. Will cont to monitor. CM cont to work on placement. 08/26/18/ Seen this am, she is found in bed, appears comfortable. Gonsalez to bedside, urine clear. She is getting Iv ertapenem for ESBL. Will repeats CT of head per neurology Rec's, restart ASA, plavix per neuro. Case management working on placement. Difficult placement. 08/28/18- Resting comfortable, per CM notes will need to complete Iv antibiotics before SNF will accept. . Appreciate neuro rec's on restarting asa, plavix. Vss afebrile. Dc when arrangements made 08/29/18 - Neuro following and she remains on IV antibiotics which prevents return to her SNF, per CM, at this time. Will cont to monitor and cont current plan until D/C, hopefully on Friday. 08/30/18 - For return to SNF when IV antibiotics finished. Signed 3008 is on her chart. She is afebrile and her VS are stable. 08/31/18- Vss afebrile, completed antibiotics, B/P controlled, BS slightly elevated will increase MITTAL, cont to monitor awaiting placement. 09/01/18 VSS afebrile. She has completed antibiotics for uti, labs today show increase creatinine, likely related to poor po intake. Po fluid encouraged. Will give some fluid prior to dc. Patient is bedbound, has left amputation. BS have been in 200's, she is on MITTAL 7u, @ hs this was decreased from 10, r/t low BS. DC to snf when arrangements made. 3008 on chart script for Ativan provided 09/02/18- Seen this am, appears comfortable. She is alert, oriented x 1. Labs this am show normal creatinine, IVF dc. She is waiting placement. BS have been elevated will increase MITTAL. Cont to monitor BS 09/03/18- Appears comfortable, per notes has periods of agitation. Does have Ativan. CM working Placement, DC when arrangements made. Has gonsalez cath will dc. MITTAL increased yesterday, cont to monitor. 09/04/18- Found in bed resting appears comfortable. she is alert oriented x1. BS continue to run in 200's, will increase MITTAL. Cm working on placement. 09/05/18 - I am told holdup with D/C is CM cannot find a SNF that will accept the patient. She is stable and remains afebrile in NAD. Will cont to support and monitor closely pending D/C to accepting SNF when available. 09/06/18 - CM is seeking SNF placement and patient medically stable for D/C. 09/07/18- uneventful night reported, Resting in bed, ao x1. Vss afebrile. BS running in mid to high 200's. Levemir adjusted. CM working on placement. Progress Note: Quality - AMI Clinical Trial Participant: No (7) Diabetes Qualifiers: Diabetes mellitus type: type 2
[2018-09-07] MEDS ORDERED: Insulin Detemir Inj 1,000 UNIT/10 ML Vial SQ SCH (21:00)
== END 2018-09-07 13:50 ==
LOC: NEPE 01:04 → NEDA 01:04 → NEPHCDU 09:42 → N05 08-18 14:40
PROVIDERS: ADMIT Family Medicine; ATTEND Family Medicine